=== PATIENT | male | born 1965 | race Caucasian/White ===

== ENCOUNTER 2016-02-12 13:50 | Inpatient (IN) | payer MEDICARE, MEDICAID ==
[~2016-02-12] VITALS: Ht 172.7 cm; Wt 74.8 kg
[~2016-02-12 13:50] MED LIST: ACET-868 PO; BISA10SU61 RC; CARB-93 PO; CHOL50004 PO; DOCU-25 PO; IBUP-1955 PO; LAMO200T2 PO; LEVE100S PO; MAGN400O6 PO; MULT-24 PO; NA P133E RC; PRAM0.5T3 PO; SIMV40TA5 PO
[2016-02-12 14:22] LABS: BASOPHILS # (AUTO) 0.1 /CMM (0.0-0.2); BASOPHILS % (AUTO) 0.6 % (0.0-2.0); DIFF TOTAL % 100 %; EOSINOPHILS # (AUTO) 0.1 /CMM (0.0-0.7); HEMATOCRIT 36 % (39-51); HEMOGLOBIN 12.4 g/dL (13.5-17.5); LYMPHOCYTES # (AUTO) 1.2 /CMM (0.8-4.8); LYMPHOCYTES % (AUTO) 14.9 % (20.0-44.0); MEAN CORPUSCULAR HEMOGLOBIN 32 PG (26.0-33.0); MEAN CORPUSCULAR HGB CONC 34 g/dl (31.0-36.0); MEAN CORPUSCULAR VOLUME 94 fL (80-96); MONOCYTES # (AUTO) 0.3 /CMM (0.1-1.30); MONOCYTES % (AUTO) 3.5 % (2.0-12.0); NEUTROPHILS # (AUTO) 6.4 /CMM (1.8-8.9); PLATELET COUNT (AUTO) 216 /CMM (150-450); RED BLOOD CELL COUNT(AUTO) 3.86 MIL/uL (4.5-6.0); WHITE BLOOD COUNT (AUTO) 7.9 K/uL (4.3-11.0)
[2016-02-12 14:29] LABS: ANION GAP 26 (5-14); CALCIUM, SERUM 8.4 mg/dL (8.5-10.1); CARBON DIOXIDE 16 mmol/L (21-32); CHLORIDE 100 mmol/L (98-107); CREATININE 1.4 mg/dL (0.6-1.3); GFR 53 mL/min (>60); GLUCOSE 220 mg/dL (74-106); POTASSIUM 3.4 mmol/L (3.5-5.1); SODIUM SERUM 138 mmol/L (136-145); UREA NITROGEN, BLOOD 14 mg/dL (7-18)
[2016-02-12 14:35] LABS: ALANINE AMINOTRANSFERASE 21 U/L (12-78); ALBUMIN 4.1 g/dL (3.4-5.0); ASPARTATE AMINOTRANSFERASE 27 U/L (15-37); BILIRUBIN,DIRECT 0.1 mg/dL (0.0-0.2); BILIRUBIN,TOTAL 0.4 mg/dL (0.2-1.0); INDIRECT BILIRUBIN 0.3 mg/dL (0.0-1.1); TOTAL PROTEIN, SERUM 7.9 g/dL (6.4-8.2)
[2016-02-12 14:41] LABS: INR 1.03 (0.87-1.13); PROTHROMBIN TIME 11.1 SECS (9.5-12.7)
[2016-02-12 14:54] LABS: KETONES,URINE NEGATIVE (NEGATIVE); LEUKOCYTE ESTERASE ,URINE NEGATIVE (NEGATIVE); PH,URINE 7.5 (5.0-8.0)
[2016-02-12 14:59] LABS: ADD UA MICROSCOPIC YES
[2016-02-12 15:02] LABS: ADD URINE CULTURE NO; WBC,URINE 0-2 /HPF (0-3)
[2016-02-12] MEDS ORDERED: LEVETIRACETAM (500MG) 1,000 MG in IV NS 0.9% 100 ML IV SCH (15:30)
[2016-02-12] MEDS ORDERED: IV SET PRIMARY PUMP SET 1 EA INFUS.SET MC ONE (15:55)
[2016-02-12] MEDS ORDERED: IV NS 0.9% 1,000 ML BAG IV ONE (17:30)
[2016-02-12] MEDS ORDERED: IV SET PRIMARY 1 EA INFUS.SET MC ONE (17:54)
[2016-02-12] MEDS ORDERED: IV NS 0.9% 1,000 ML ONE (17:54)
[2016-02-12 20:00] VITALS: BP 94/61
[2016-02-13] VITALS (7 sets, daily range): BP systolic 100–110; BP diastolic 58–88
[2016-02-13] MEDS ORDERED: BISACODYL SUPP (10 MG) 10 MG/SUPP.RECT SUPP.RECT RC PRN
[2016-02-13] MEDS ORDERED: NA PHOS,M-B/NA PHOS,DI-BA 1 EA ENEMA RC PRN
[2016-02-13] MEDS ORDERED: MAGNESIUM HYDROXIDE 30 ML UDC PO PRN
[2016-02-13] MEDS ORDERED: IV D5/0.45 NACL 1,000 ML IV PRN
[2016-02-13] MEDS ORDERED: ACETAMINOPHEN 325 MG TABLET PO PRN
[2016-02-13] MEDS ORDERED: IBUPROFEN 600 MG TABLET PO PRN
[2016-02-13] MEDS ORDERED: SIMVASTATIN 20 MG TABLET ONE (00:11)
[2016-02-13] MEDS ORDERED: IV SET PRIMARY PUMP SET 1 EA INFUS.SET MC ONE (01:10)
[2016-02-13] MEDS ORDERED: IV D5/0.45 NACL 1,000 ML IV ONE (01:10)
[2016-02-13] MEDS ORDERED: CARBIDOPA/LEVODOPA 25/100 MG 1 UDTAB ONE (01:44)
[2016-02-13] MEDS ORDERED: LEVETIRACETAM (250 MG) 250 MG TABLET PO ONE (01:44)
[2016-02-13] MEDS ORDERED: PRAMIPEXOLE DI-HCL 0.25 MG TABLET ONE (01:45)
[2016-02-13] MEDS ORDERED: LamoTRIgine 100 MG TABLET ONE (01:51)
[2016-02-13] MEDS: LEVETIRACETAM SOL (5 ML) 100 MG/ML UDC PO SCH ×5 (01:57→17:30)
[2016-02-13] MEDS: LamoTRIgine 100 MG TABLET PO SCH ×3 (01:58→21:59)
[2016-02-13] MEDS: PRAMIPEXOLE DI-HCL 0.25 MG TABLET PO SCH ×6 (01:58→21:59)
[2016-02-13] MEDS: CARBIDOPA/LEVODOPA 25/100 MG 1 UDTAB PO SCH ×5 (01:59→17:30)
[2016-02-13] MEDS: SIMVASTATIN 40 MG TABLET PO SCH ×2 (01:59→21:59)
[2016-02-13 07:01] LABS: BASOPHILS % (AUTO) 0.4 % (0.0-2.0); DIFF TOTAL % 100 %; EOSINOPHILS # (AUTO) 0.2 /CMM (0.0-0.7); HEMATOCRIT 33 % (39-51); HEMOGLOBIN 11.1 g/dL (13.5-17.5); LYMPHOCYTES # (AUTO) 1.6 /CMM (0.8-4.8); LYMPHOCYTES % (AUTO) 20.2 % (20.0-44.0); MEAN CORPUSCULAR HEMOGLOBIN 32 PG (26.0-33.0); MEAN CORPUSCULAR HGB CONC 34 g/dl (31.0-36.0); MEAN CORPUSCULAR VOLUME 95 fL (80-96); MONOCYTES # (AUTO) 0.5 /CMM (0.1-1.30); MONOCYTES % (AUTO) 6.6 % (2.0-12.0); NEUTROPHILS # (AUTO) 5.8 /CMM (1.8-8.9); NEUTROPHILS % (AUTO) 70.8 % (43.0-81.0); PLATELET COUNT (AUTO) 178 /CMM (150-450); RED BLOOD CELL COUNT(AUTO) 3.44 MIL/uL (4.5-6.0); WHITE BLOOD COUNT (AUTO) 8.1 K/uL (4.3-11.0)
[2016-02-13 07:11] LABS: ALBUMIN 3.4 g/dL (3.4-5.0); BILIRUBIN,DIRECT 0.1 mg/dL (0.0-0.2); BILIRUBIN,TOTAL 0.5 mg/dL (0.2-1.0); CREATININE 0.8 mg/dL (0.6-1.3); INDIRECT BILIRUBIN 0.4 mg/dL (0.0-1.1); POTASSIUM 3.7 mmol/L (3.5-5.1); TOTAL PROTEIN, SERUM 6.7 g/dL (6.4-8.2)
[2016-02-13 07:13] LABS: THYROID STIMULATING HORMONE 1.42 uIU/mL (0.358-3.74)
[2016-02-13] MEDS: MULTIVITAMINS,THERAPEUTIC 1 UDTAB TABLET PO SCH (08:48)
[2016-02-13] MEDS: CHOLECALCIFEROL 1,000 UNIT TABLET (VIT D3) PO SCH (08:48)
[2016-02-13] MEDS ORDERED: LORAZEPAM INJ 2 MG/ML VIAL IM PRN (15:30)
[2016-02-13] MEDS ORDERED: Z GUARD REMEDY 4 OZ OINT TP SCH (21:00)
[2016-02-13] MEDS: DOCUSATE SODIUM 100 MG CAPSULE PO SCH (21:58)
[2016-02-14] VITALS: BP 102/69
[2016-02-14 04:00] VITALS: BP 103/65
[2016-02-14 06:59] LABS: ALBUMIN 3.7 g/dL (3.4-5.0); BASOPHILS % (AUTO) 0.4 % (0.0-2.0); BILIRUBIN,TOTAL 0.8 mg/dL (0.2-1.0); CREATININE 0.7 mg/dL (0.6-1.3); DIFF TOTAL % 100 %; EOSINOPHILS # (AUTO) 0.2 /CMM (0.0-0.7); EOSINOPHILS % (AUTO) 3.3 % (0.0-6.0); HEMATOCRIT 34 % (39-51); HEMOGLOBIN 11.6 g/dL (13.5-17.5); LYMPHOCYTES # (AUTO) 1.6 /CMM (0.8-4.8); LYMPHOCYTES % (AUTO) 24.9 % (20.0-44.0); MEAN CORPUSCULAR HEMOGLOBIN 32 PG (26.0-33.0); MEAN CORPUSCULAR HGB CONC 34 g/dl (31.0-36.0); MEAN CORPUSCULAR VOLUME 94 fL (80-96); MONOCYTES # (AUTO) 0.4 /CMM (0.1-1.30); MONOCYTES % (AUTO) 6.8 % (2.0-12.0); NEUTROPHILS # (AUTO) 4.1 /CMM (1.8-8.9); NEUTROPHILS % (AUTO) 64.6 % (43.0-81.0); PLATELET COUNT (AUTO) 179 /CMM (150-450); POTASSIUM 3.7 mmol/L (3.5-5.1); RED BLOOD CELL COUNT(AUTO) 3.66 MIL/uL (4.5-6.0); TOTAL PROTEIN, SERUM 7.3 g/dL (6.4-8.2); WHITE BLOOD COUNT (AUTO) 6.4 K/uL (4.3-11.0)
[2016-02-14 08:00] VITALS: BP 105/71
[2016-02-14] MEDS: MULTIVITAMINS,THERAPEUTIC 1 UDTAB TABLET PO SCH (09:11)
[2016-02-14] MEDS: CARBIDOPA/LEVODOPA 25/100 MG 1 UDTAB PO SCH ×3 (09:11→17:33)
[2016-02-14] MEDS: LamoTRIgine 100 MG TABLET PO SCH ×2 (09:11→21:27)
[2016-02-14] MEDS: PRAMIPEXOLE DI-HCL 0.25 MG TABLET PO SCH ×3 (09:11→17:33)
[2016-02-14] MEDS: CHOLECALCIFEROL 1,000 UNIT TABLET (VIT D3) PO SCH (09:11)
[2016-02-14] MEDS: LEVETIRACETAM SOL (5 ML) 100 MG/ML UDC PO SCH ×3 (09:11→17:33)
[2016-02-14 16:00] VITALS: BP 94/56
[2016-02-14 20:00] VITALS: BP 97/56
[2016-02-14] MEDS: DOCUSATE SODIUM 100 MG CAPSULE PO SCH (21:27)
[2016-02-14] MEDS: SIMVASTATIN 40 MG TABLET PO SCH (21:27)
[2016-02-15] MEDS ORDERED: PRAMIPEXOLE DI-HCL 0.25 MG TABLET ONE (00:41)
[2016-02-15] MEDS: PRAMIPEXOLE DI-HCL 0.25 MG TABLET PO SCH ×5 (00:47→21:14)
[2016-02-15 08:00] VITALS: BP 105/63
[2016-02-15] MEDS: CARBIDOPA/LEVODOPA 25/100 MG 1 UDTAB PO SCH ×3 (09:02→17:48)
[2016-02-15] MEDS: LEVETIRACETAM SOL (5 ML) 100 MG/ML UDC PO SCH ×3 (09:02→17:48)
[2016-02-15] MEDS: LamoTRIgine 100 MG TABLET PO SCH ×2 (09:02→21:15)
[2016-02-15] MEDS: MULTIVITAMINS,THERAPEUTIC 1 UDTAB TABLET PO SCH (09:02)
[2016-02-15] MEDS: Z GUARD REMEDY 2 OZ OINT TP PRN (09:03)
[2016-02-15] MEDS: CHOLECALCIFEROL 1,000 UNIT TABLET (VIT D3) PO SCH (09:03)
[2016-02-15] MEDS: MEGESTROL ACETATE SUSP 400 MG/10 ML UDC PO SCH ×2 (09:03→17:48)
[2016-02-15 09:39] LABS: BASOPHILS % (AUTO) 0.3 % (0.0-2.0); DIFF TOTAL % 100 %; EOSINOPHILS # (AUTO) 0.3 /CMM (0.0-0.7); EOSINOPHILS % (AUTO) 2.3 % (0.0-6.0); HEMATOCRIT 35 % (39-51); HEMOGLOBIN 12.1 g/dL (13.5-17.5); LYMPHOCYTES # (AUTO) 1.6 /CMM (0.8-4.8); LYMPHOCYTES % (AUTO) 13.9 % (20.0-44.0); MEAN CORPUSCULAR HEMOGLOBIN 32 PG (26.0-33.0); MEAN CORPUSCULAR HGB CONC 34 g/dl (31.0-36.0); MEAN CORPUSCULAR VOLUME 93 fL (80-96); MONOCYTES # (AUTO) 0.6 /CMM (0.1-1.30); MONOCYTES % (AUTO) 5.2 % (2.0-12.0); NEUTROPHILS % (AUTO) 78.3 % (43.0-81.0); PLATELET COUNT (AUTO) 190 /CMM (150-450); WHITE BLOOD COUNT (AUTO) 11.5 K/uL (4.3-11.0)
[2016-02-15 09:55] LABS: ALBUMIN 3.6 g/dL (3.4-5.0); BILIRUBIN,TOTAL 0.8 mg/dL (0.2-1.0); CALCIUM, SERUM 8.2 mg/dL (8.5-10.1); CREATININE 0.7 mg/dL (0.6-1.3); POTASSIUM 3.6 mmol/L (3.5-5.1); TOTAL PROTEIN, SERUM 7.3 g/dL (6.4-8.2)
[2016-02-15 16:00] VITALS: BP 96/60
[2016-02-15 20:00] VITALS: BP_SYST 105; BP_SYST 109; BP_DIAS 58
[2016-02-15] MEDS: SIMVASTATIN 40 MG TABLET PO SCH (21:15)
[2016-02-15] MEDS: DOCUSATE SODIUM 100 MG CAPSULE PO SCH (21:15)
[2016-02-16 08:00] VITALS: BP 98/62
[2016-02-16 08:50] VITALS: BP 98/62
[2016-02-16] MEDS: CARBIDOPA/LEVODOPA 25/100 MG 1 UDTAB PO SCH ×4 (08:54→16:36)
[2016-02-16] MEDS: PRAMIPEXOLE DI-HCL 0.25 MG TABLET PO SCH ×5 (08:54→21:23)
[2016-02-16] MEDS: MULTIVITAMINS,THERAPEUTIC 1 UDTAB TABLET PO SCH (08:54)
[2016-02-16] MEDS: CHOLECALCIFEROL 1,000 UNIT TABLET (VIT D3) PO SCH (08:54)
[2016-02-16] MEDS: LamoTRIgine 100 MG TABLET PO SCH ×2 (08:54→21:23)
[2016-02-16] MEDS: MEGESTROL ACETATE SUSP 400 MG/10 ML UDC PO SCH ×3 (08:54→16:36)
[2016-02-16] MEDS: LEVETIRACETAM SOL (5 ML) 100 MG/ML UDC PO SCH ×4 (08:56→16:36)
[2016-02-16] MEDS: Z GUARD REMEDY 2 OZ OINT TP PRN (12:37)
[2016-02-16 16:17] VITALS: BP 101/56
[2016-02-16 20:00] VITALS: BP 100/61
[2016-02-16] MEDS: DOCUSATE SODIUM 100 MG CAPSULE PO SCH (21:23)
[2016-02-16] MEDS: SIMVASTATIN 40 MG TABLET PO SCH (21:24)
[2016-02-16 22:00] VITALS: BP 100/61
[2016-02-17 08:00] VITALS: BP_SYST 109; BP_SYST 129; BP_DIAS 60
[2016-02-17] MEDS: MEGESTROL ACETATE SUSP 400 MG/10 ML UDC PO SCH (08:20)
[2016-02-17] MEDS: LEVETIRACETAM SOL (5 ML) 100 MG/ML UDC PO SCH ×2 (08:20→12:47)
[2016-02-17] MEDS: LamoTRIgine 100 MG TABLET PO SCH (08:21)
[2016-02-17] MEDS: CARBIDOPA/LEVODOPA 25/100 MG 1 UDTAB PO SCH ×2 (08:21→12:48)
[2016-02-17] MEDS: CHOLECALCIFEROL 1,000 UNIT TABLET (VIT D3) PO SCH (10:27)
[2016-02-17] MEDS: MULTIVITAMINS,THERAPEUTIC 1 UDTAB TABLET PO SCH (10:28)
[2016-02-17] MEDS: PRAMIPEXOLE DI-HCL 0.25 MG TABLET PO SCH ×2 (10:28→12:48)
== END 2016-02-17 16:30 | DRG 101 ==
LOC: ER 13:51 → TRANSITION 20:25 → TELE 02-13 04:08 → MED 02-14 13:18
PROVIDERS: ADMIT Internal Medicine Rheumatology; ATTEND Internal Medicine Rheumatology
DX: G40.409 Other generalized epilepsy and epileptic syndromes, not intractable, without status epilepticus (principal); G82.20 Paraplegia, unspecified; K21.9 Gastro-esophageal reflux disease without esophagitis; G20 Parkinson's disease; F02.80 Dementia in other diseases classified elsewhere, unspecified severity, without behavioral disturbance, psychotic disturbance, mood disturbance, and anxiety; F20.9 Schizophrenia, unspecified; H52.4 Presbyopia; D64.9 Anemia, unspecified; F41.9 Anxiety disorder, unspecified; F32.9 Major depressive disorder, single episode, unspecified; Z98.2 Presence of cerebrospinal fluid drainage device; Z86.73 Personal history of transient ischemic attack (TIA), and cerebral infarction without residual deficits
CPT/HCPCS: 36415; 70450-TC; 71010-TC; 80048-TC; 80053-TC; 80076-TC; 81000-TC; 82962-TC; 84436-TC; 84443-TC; 85025-TC; 85730-TC; 87081-TC; 97001-TC; 97110-TC; A4606; G6040-TC; J1953; J2060; J3490; J7030; Z7610

== ENCOUNTER 2017-12-23 14:43 | Inpatient (IN) | payer MEDICARE, MEDICAID ==
[~2017-12-23] VITALS: Ht 172.7 cm; Wt 75.7 kg
[~2017-12-23 14:43] MED LIST changes: +ACET-868 GT; -ACET-868 PO; +CARB-93 GT; -CARB-93 PO; +CHOL50004 GT; -CHOL50004 PO; +DOCU-141 GT; -DOCU-25 PO; +IBUP-1955 GT; -IBUP-1955 PO; +LAMO200T2 GT; -LAMO200T2 PO; +LEVE100S GT; -LEVE100S PO; +MAGN400O6 GT; -MAGN400O6 PO; +MULT-24 GT; -MULT-24 PO; +PRAM0.5T3 GT; -PRAM0.5T3 PO
[2017-12-23] MEDS ORDERED: LORAZEPAM INJ 2 MG/ML VIAL ONE (14:46)
--- NOTE | 2017-12-23 14:50 | NUR ---
patient devorahra 84 from [facility] and per staff has been shaking for over 2 hours which they believed to be parkinsons exacerbation. patient noted to be actively seizing and per md ativan given ivp and shaking ceased.
[2017-12-23] MEDS ORDERED: ACETAMINOPHEN 650 MG/SUPP.RECT RC ONE ×2 (14:58→15:00)
[2017-12-23] MEDS ORDERED: PIPERACILLIN /TAZOBACTAM 3.375 G in IV D5W 50 ML IV ONE (15:00)
[2017-12-23] MEDS ORDERED: LORAZEPAM INJ 2 MG/ML VIAL IVP ONE (15:00)
[2017-12-23] MEDS ORDERED: VANCOMYCIN 1 GM in IV D5W 250 ML IV ONE (15:00)
[2017-12-23] MEDS ORDERED: LEVETIRACETAM (500MG) 500 MG in IV NS 0.9% 100 ML IV ONE (15:00)
[2017-12-23] MEDS ORDERED: IV NS 0.9% 1,000 ML BAG IV ONE (15:00)
--- NOTE | 2017-12-23 15:02 | NUR ---
ACCOMPANIED PATIENT TO CT. BLOOD DRAWN. UNABLE TO INSERT LAST CATH, WILL TRY AGAIN
--- NOTE | 2017-12-23 15:15 | NUR ---
returned from ct. inserted another piv. blood cultures drawn. ivf started. patient has no signs of active seizing at this time. called pharmacy for shady
--- NOTE | 2017-12-23 15:41 | NUR ---
left fa zosyn and ns.
[2017-12-23 15:55] LABS: BASOPHILS % (AUTO) 0.4 % (0.0-2.0); EOSINOPHILS % (AUTO) 0.4 % (0.0-6.0); HEMATOCRIT 33 % (39-51); HEMOGLOBIN 11.3 g/dL (13.5-17.5); LYMPHOCYTES # (AUTO) 1.2 /CMM (0.8-4.8); LYMPHOCYTES % (AUTO) 15.3 % (20.0-44.0); MEAN CORPUSCULAR HGB CONC 34 g/dl (31.0-36.0); MEAN CORPUSCULAR VOLUME 97 fL (80-96); MONOCYTES # (AUTO) 0.7 /CMM (0.1-1.30); MONOCYTES % (AUTO) 9.5 % (2.0-12.0); NEUTROPHILS # (AUTO) 5.6 /CMM (1.8-8.9); NEUTROPHILS % (AUTO) 74.4 % (43.0-81.0); PLATELET COUNT (AUTO) 274 /CMM (150-450); RED BLOOD CELL COUNT(AUTO) 3.41 MIL/uL (4.5-6.0); WHITE BLOOD COUNT (AUTO) 7.5 K/uL (4.3-11.0)
[2017-12-23 16:08] LABS: VALPROIC ACID 23 ug/mL (50-100)
[2017-12-23 16:12] LABS: ALANINE AMINOTRANSFERASE 27 U/L (12-78); ALKALINE PHOSPHATASE 51 U/L (46-116); ASPARTATE AMINOTRANSFERASE 29 U/L (15-37); BILIRUBIN,DIRECT 0.1 mg/dL (0.0-0.2); BILIRUBIN,TOTAL 0.4 mg/dL (0.2-1.0); CALCIUM, SERUM 8.2 mg/dL (8.5-10.1); CARBON DIOXIDE 29 mmol/L (21-32); CHLORIDE 100 mmol/L (98-107); GLUCOSE 87 mg/dL (74-106); POTASSIUM 3.1 mmol/L (3.5-5.1); SODIUM SERUM 135 mmol/L (136-145); TOTAL PROTEIN, SERUM 7.2 g/dL (6.4-8.2); UREA NITROGEN, BLOOD 19 mg/dL (7-18)
[2017-12-23] MEDS ORDERED: VALPROATE 1,000 MG in IV NS 0.9% 100 ML IV STA (16:23)
--- NOTE | 2017-12-23 16:27 | NUR ---
patient rectal temp now 99.9 from temp max 102.8. changed to nc 5lpm saturating 100%.
[2017-12-23 16:28] LABS: APPEARANCE,URINE CLEAR (CLEAR); BILIRUBIN,URINE 1+ (NEGATIVE); BLOOD, URINE NEGATIVE Ery/uL (NEGATIVE); COLOR,URINE YELLOW (YELLOW); KETONES,URINE 1+ (NEGATIVE); LEUKOCYTE ESTERASE ,URINE NEGATIVE (NEGATIVE); NITRITE, URINE NEGATIVE (NEGATIVE); PROTEIN,URINE NEGATIVE (NEGATIVE); UGLUCOSE NEGATIVE (NEGATIVE)
--- NOTE | 2017-12-23 16:44 | NUR ---
DR FONTAINE WAS PAGED.
[2017-12-23 16:55] LABS: BACTERIA,URINE Few /HPF (None Seen); SQUAMOUS EPITHELIAL CELL,UR Few /HPF (None Seen)
[2017-12-23 16:56] LABS: RBC,URINE 0-2 /HPF (0-2); WBC,URINE 0-2 /HPF (0-3)
[2017-12-23 16:57] LABS: MUCUS,URINE Moderate /LPF (None Seen)
--- NOTE | 2017-12-23 17:01 | NUR ---
patient for b[facility]ard 112-1 wendy alexandra
--- NOTE | 2017-12-23 17:20 | NUR ---
REPORT GIVEN TO DOREEN IYER RN
--- NOTE | 2017-12-23 17:45 | NUR ---
PATIENT TRANSFERRED TO [facility] GIVEN TO DIANE LOGAN
--- NOTE | 2017-12-23 17:50 | NUR ---
RN NOTES RECEIVED IN ROOM 112-1, FROM ER IN ROOM , NONVERBAL, DRAWZY RESPONDS TO PAINFUL STIMULI, ON 3L O2 N/C O2 SAT 100%, NO SOB NOTED, ON TELE SB , HR IN HIGH 50'S , LAST DRINING TO GRAVITY , RFA IV G 18 AND LFA IV G 20 INTACT, SR UP x3, CALL LIGHT WITHIN EASY REACH, BED LOCKED AND IN LOWEST POSITION , WILL ENDORSE TO SECOND RIGGER NURSE FOR CONTINUITY OF CARE .
[2017-12-23 18:00] VITALS: BP 95/70
--- NOTE | 2017-12-23 19:45 | NUR ---
TD RN NOTES: RECEIVED PT ON BED, LETHARGIC BUT WITHDRAWS TO PAIN. NO ACUTE DISTRESS NOTED. NO FACIAL GRIMACING OR ANY SIGNS OF PAIN NOTED. ON 3LPM NASAL CANNULA, NO SOB NOTED. SINUS GABRIEL ON TELE MONITOR HR 53 BPM. IV ON RIGHT FOREARM #18 AND LEFT FOREARM #20 INTACT AND PATENT, FLUSHING WELL. KEPT CLEAN, DRY AND COMFORTABLE. SAFETY AND FALL PRECAUTIONS OBSERVED AND MAINTAINED. WILL CONTINUE TO MONITOR PT.
[2017-12-23 20:00] VITALS: BP 109/57
[2017-12-23] MEDS ORDERED: CEFTRIAXONE 1 G VIAL IM SCH (20:00)
[2017-12-23] MEDS ORDERED: FEE PK DOSING 1 MIN EA MC ONE (20:05)
[2017-12-23] MEDS: IV D5/0.45 NACL 1,000 ML IV SCH (20:09)
[2017-12-23] MEDS: CEFTRIAXONE 1 G in IV D5W 50 ML IV SCH (20:41)
[2017-12-23] MEDS ORDERED: BISACODYL SUPP (10 MG) 10 MG/SUPP.RECT SUPP.RECT RC PRN (21:00)
[2017-12-23] MEDS: LamoTRIgine 100 MG TABLET PO SCH (21:00)
[2017-12-23] MEDS ORDERED: NA PHOS,M-B/NA PHOS,DI-BA 1 EA ENEMA RC PRN (21:00)
[2017-12-23] MEDS: DOCUSATE SODIUM 100 MG CAPSULE PO SCH (22:00)
[2017-12-23] MEDS: SIMVASTATIN 40 MG TABLET PO SCH (22:00)
--- NOTE | 2017-12-23 22:09 | NUR ---
TD RN NOTES: 2099 AND 0 DUE PO MEDS NOT GIVEN BECAUSE PT IS LETHARGIC. DR. FONTAINE MADE AWARE.
[2017-12-23] MEDS: VANCOMYCIN 0.75 GM in IV D5W 250 ML IV SCH (22:41)
[2017-12-24] VITALS: BP 92/42
[2017-12-24 04:00] VITALS: BP 100/48
[2017-12-24] MEDS: IV D5/0.45 NACL 1,000 ML IV SCH (06:12)
[2017-12-24 06:24] LABS: BASOPHILS % (AUTO) 0.5 % (0.0-2.0); EOSINOPHILS % (AUTO) 1.7 % (0.0-6.0); HEMATOCRIT 28 % (39-51); HEMOGLOBIN 9.6 g/dL (13.5-17.5); LYMPHOCYTES # (AUTO) 1.3 /CMM (0.8-4.8); LYMPHOCYTES % (AUTO) 18.8 % (20.0-44.0); MEAN CORPUSCULAR HGB CONC 34 g/dl (31.0-36.0); MEAN CORPUSCULAR VOLUME 98 fL (80-96); MONOCYTES # (AUTO) 0.5 /CMM (0.1-1.30); MONOCYTES % (AUTO) 7.9 % (2.0-12.0); NEUTROPHILS # (AUTO) 4.9 /CMM (1.8-8.9); NEUTROPHILS % (AUTO) 71.1 % (43.0-81.0); PLATELET COUNT (AUTO) 195 /CMM (150-450); RED BLOOD CELL COUNT(AUTO) 2.85 MIL/uL (4.5-6.0); WHITE BLOOD COUNT (AUTO) 6.9 K/uL (4.3-11.0)
[2017-12-24] MEDS: VANCOMYCIN 0.75 GM in IV D5W 250 ML IV SCH ×3 (06:29→23:23)
[2017-12-24 06:38] LABS: ALBUMIN 2.4 g/dL (3.4-5.0); BILIRUBIN,TOTAL 0.2 mg/dL (0.2-1.0); CALCIUM, SERUM 7.3 mg/dL (8.5-10.1); CREATININE 0.8 mg/dL (0.6-1.3); POTASSIUM 2.9 mmol/L (3.5-5.1)
--- NOTE | 2017-12-24 06:42 | NUR ---
TD RN NOTES: NO CHANGES NOTED THROUGHOUT THE SHIFT. NO APPARENT DISTRESS NOTED. NO FACIAL GRIMACING, MOANING OR ANY SIGNS OF PAIN NOTED. ON 3LPM NASAL CANNULA, SATURATING WELL. IV ON LEFT FOREARM #20 AND RIGHT FOREARM #18 INTACT AND PATENT WITH IVF D5 1/2NS RUNNING AT 100 ML/HR, INFUSING WELL. NO SIGNS OF INFILTRATION NOTED. ON TELE MONITOR SINUS GABRIEL HR 45 BPM. LAST CATH INTACT AND PATENT WITH CLEAR YELLOW URINE DRAINING. KEPT CLEAN, DRY AND COMFORTABLE. SAFETY AND FALL PRECAUTIONS OBSERVED AND MAINTAINED. WILL ENDORSE TO DAY SHIFT RN FOR CONTINUITY OF CARE.
[2017-12-24 06:58] LABS: T4 (THYROXINE) 3.7 ug/dL (4.7-13.3); THYROID STIMULATING HORMONE 1.821 uIU/mL (0.358-3.74)
--- NOTE | 2017-12-24 07:45 | NUR ---
TATIANA RN NOTE: RECEIVED PATIENT IN BED, NOTED LETHARGIC AT THIS TIME. NONVERBAL AT THIS TIME. RESPIRATION EVEN AND UNLABORED. ON SEIZURE PRECAUTION. NO FACIAL GRIMACING NOTED. HOB ELEVATED TO 45 DEGREE. KEPT NPO AT THIS TIME. WILL CLARIFY WITH DR. FONTAINE RE: SWALLOW EVALUATION TODAY. BED ON LOWEST POSITION. BED ALARMED AND LOCKED AT ALL TIMES. CALL LIGHT WITHIN REACH. ON CLOSE MONITORING WITH STAFF FOR SAFETY PRECAUTION. NEEDS ANTICIPATED.
[2017-12-24 08:00] VITALS: BP 121/73
[2017-12-24] MEDS: CARBIDOPA/LEVODOPA 25/100 MG 1 UDTAB PO SCH ×3 (09:00→17:00)
[2017-12-24] MEDS ORDERED: LEVETIRACETAM SOL (5 ML) 100 MG/ML UDC PO SCH (09:00)
[2017-12-24] MEDS: LamoTRIgine 100 MG TABLET PO SCH ×2 (09:00→21:00)
[2017-12-24] MEDS: CHOLECALCIFEROL 1,000 UNIT TABLET (VIT D3) PO SCH (09:00)
[2017-12-24] MEDS: PRAMIPEXOLE DI-HCL 0.25 MG TABLET PO SCH ×4 (09:00→21:00)
[2017-12-24] MEDS: MULTIVITAMINS,THERAGRAN 1 UDTAB TABLET PO SCH (09:00)
[2017-12-24] MEDS: DIVALPROEX SODIUM 500 MG TABLET.DR PO SCH ×3 (09:00→17:00)
[2017-12-24] MEDS: LEVETIRACETAM (500MG) 500 MG in IV NS 0.9% 100 ML IV SCH ×3 (09:40→17:25)
--- NOTE | 2017-12-24 09:53 | NUR ---
TATIANA RN NOTE: DR. FONTAINE ORDERED ATIVAN 2MG IVP Q2HR PRN FOR SEIZURE. ORDER, NOTED AND CARRIED OUT.
[2017-12-24 12:00] VITALS: BP 99/59
[2017-12-24] MEDS: LORAZEPAM INJ 2 MG/ML VIAL IV PRN (12:30)
--- NOTE | 2017-12-24 13:22 | NUR ---
TATIANA RN NOTE: PATIENT WAS UNABLE TO TAKE HIS PO MEDICATIONS (DEPAKOTE, CARBIDOPA/LEVIDOPA AND PRAMIPEXOLE) AT THIS TIME. NO SEIZURE EPISODE NOTED AT THIS TIME.
[2017-12-24] MEDS ORDERED: POTASSIUM CHLORIDE 20 MEQ POWDER PACKET PO SCH (14:30)
--- NOTE | 2017-12-24 14:50 | NUR ---
TATIANA RN NOTE: CLARIFIED WITH DR. FONTAINE RE: THE POTASSIUM REPLACEMENT. PER MD GIVE POTASSIUM CHLORIDE 20MEQ IVPB. ORDER, NOTED AND CARRIED OUT.
[2017-12-24] MEDS: POTASSIUM CL. PREMIX PERIPHER. 50 ML IV SCH ×2 (15:13→16:18)
[2017-12-24 16:00] VITALS: BP 80/47
--- NOTE | 2017-12-24 17:22 | NUR ---
TATIANA RN NOTE: RECHECKED PATIENT'S BLOOD PRESSURE AND IT WAS 117/83, HR= 82.
--- NOTE | 2017-12-24 19:35 | NUR ---
RN NOTES RECEIVED PT LETHARGIC, RESPONSIVE TO TACTILE STIMULI. WARMTH TO TOUCH, NO ACUTE RESPIRATORY DISTRESS ON O2 3LPM VIA NC SATURATION 97%. AFEBRILE. TEMP 97.9 DEG. NO EPISODE OF SEIZURE . SB HR 58 ON TELE MONITOR. WITH STRONG PERIPHERAL PULSES. BIALTERAL BREATH SOUND CLEAR. IV SITE ON RFA G 18 AND LFA G 20 INTACT AND PATENT RUNNING WITH D5 1/2 NS @ 100 ML/HR. PATIENT HAS LAST CATH DRAINED VIA GRAVITY WITH YELLOW COLOR CLEAR URINE. REPOSITIONED FOR COMFORTABLE. KEPT PT CLEAN AND DRY. WILL CONTINUE TO MONITOR.
[2017-12-24 20:00] VITALS: BP 120/62
--- NOTE | 2017-12-24 20:08 | NUR ---
TATIANA RN NOTE: REPORT GIVEN TO PM SHIFT NURSE FOR CONTINUITY OF CARE.
[2017-12-24] MEDS: IV D5/0.45 NACL 1,000 ML IV PRN (21:04)
[2017-12-24] MEDS: CEFTRIAXONE 1 G in IV D5W 50 ML IV SCH (21:06)
[2017-12-24] MEDS: DOCUSATE SODIUM 100 MG CAPSULE PO SCH (21:07)
[2017-12-24] MEDS: SIMVASTATIN 40 MG TABLET PO SCH (21:07)
[2017-12-25] VITALS: BP 101/47
[2017-12-25 04:00] VITALS: BP 113/42
[2017-12-25 06:20] LABS: BASOPHILS % (AUTO) 0.5 % (0.0-2.0); HEMATOCRIT 31 % (39-51); HEMOGLOBIN 10.8 g/dL (13.5-17.5); LYMPHOCYTES # (AUTO) 1.6 /CMM (0.8-4.8); LYMPHOCYTES % (AUTO) 17.7 % (20.0-44.0); MEAN CORPUSCULAR HGB CONC 35 g/dl (31.0-36.0); MEAN CORPUSCULAR VOLUME 96 fL (80-96); MONOCYTES # (AUTO) 0.7 /CMM (0.1-1.30); MONOCYTES % (AUTO) 8.1 % (2.0-12.0); NEUTROPHILS # (AUTO) 6.2 /CMM (1.8-8.9); NEUTROPHILS % (AUTO) 70.7 % (43.0-81.0); PLATELET COUNT (AUTO) 244 /CMM (150-450); RED BLOOD CELL COUNT(AUTO) 3.23 MIL/uL (4.5-6.0); WHITE BLOOD COUNT (AUTO) 8.8 K/uL (4.3-11.0)
[2017-12-25 06:24] LABS: CALCIUM, SERUM 7.8 mg/dL (8.5-10.1); CREATININE 0.8 mg/dL (0.6-1.3)
[2017-12-25] MEDS: VANCOMYCIN 0.75 GM in IV D5W 250 ML IV SCH ×3 (06:37→23:12)
--- NOTE | 2017-12-25 07:22 | NUR ---
RN NOTES PATIENT ASLEEP WELL ON BED. BREATHING EVEN AND UNLABORED. ZERO FLACC TMAX 99.1. ALL IV AND IV ATB MEDICINE GIVEN ORDERED. PT IS MORE ALERT THAN YESTERDAY, FOLLOWING COMMAND BUT NON-VERBAL. PARKINSON PRESENT.ALL IV SITE KEPT INTACT AND PATENT. KEPT CLEAN AND DRY. ENDORSED CONTINUITY OF CARE TO AM NURSE.
--- NOTE | 2017-12-25 07:57 | NUR ---
INITIAL TATIANA RN NOTE RCVD PT SLEEPING, EASILY AROUSED TO TOUCH, ABLE TO OPEN EYES, ON RA TOLERATING WELL. SR ON TELE, LAST TO GRAVITY DRAINING CLEAR, YELLOW URINE. IV SITES C/D/I/PATENT. NO S/O INFILTRATION/PHLEBITIS OBSERVED UPON FLUSHING, IVF INFUSING. WILL CONTINUE TO MONITOR PT FOR SAFETY AND COMFORT. BED IN LOW AND LOCKED POSITION. CALL LIGHT WITHIN REACH.
[2017-12-25 08:00] VITALS: BP 98/52
[2017-12-25] MEDS: DIVALPROEX SODIUM 500 MG TABLET.DR PO SCH ×3 (08:45→16:23)
[2017-12-25] MEDS: PRAMIPEXOLE DI-HCL 0.25 MG TABLET PO SCH ×4 (08:45→21:58)
[2017-12-25] MEDS: CARBIDOPA/LEVODOPA 25/100 MG 1 UDTAB PO SCH ×3 (08:45→16:23)
[2017-12-25] MEDS: LEVETIRACETAM (500MG) 500 MG in IV NS 0.9% 100 ML IV SCH (08:45)
[2017-12-25] MEDS: LamoTRIgine 100 MG TABLET PO SCH ×2 (08:45→21:58)
[2017-12-25] MEDS: CHOLECALCIFEROL 1,000 UNIT TABLET (VIT D3) PO SCH (08:45)
[2017-12-25] MEDS: MULTIVITAMINS,THERAGRAN 1 UDTAB TABLET PO SCH (08:45)
--- NOTE | 2017-12-25 09:37 | NUR ---
TATIANA RN NOTE PT REQUIRES FREQUENT COACHING TO SWALLOW FOOD/THICKENED LIQUID. WILL CONTINUE TO MONITOR.
[2017-12-25] MEDS ORDERED: POTASSIUM CHLORIDE 20 MEQ POWDER PACKET PO SCH (10:00)
[2017-12-25] MEDS: IV D5/0.45 NACL 1,000 ML IV PRN ×2 (10:36→22:04)
[2017-12-25 12:00] VITALS: BP 124/48
[2017-12-25] MEDS: LEVETIRACETAM SOL (5 ML) 100 MG/ML UDC PO SCH ×2 (13:22→16:23)
--- NOTE | 2017-12-25 13:26 | NUR ---
TATIANA RN NOTE [facility] MATTRESS ORDERED AND PLACED IN BED, LOW SHANI SCORE, NO WOUNDS PRESENT AT THIS TIME.
[2017-12-25 16:00] VITALS: BP_SYST 90; BP_DIAS 45; BP_DIAS 48
--- NOTE | 2017-12-25 19:15 | NUR ---
TATIANA RN NOTE PT REMAINS STABLE, ON RA TOLERATING WELL. SR ON MONITOR. IV SITES C/D/I/PATENT. NO S/O INFILTRATION/PHLEBITIS OBSERVED. IVF INFUSING. LAST TO GRAVITY DRAINING CLEAR, YELLOW URINE. PT'S CARE WILL BE ENDORSED TO STONE OPERATOR RN FOR CONTINUITY OF CARE. BED IN LOW AND LOCKED POSITION. CALL LIGHT WITHIN REACH.
[2017-12-25 20:31] VITALS: BP 114/39
--- NOTE | 2017-12-25 20:33 | NUR ---
RN TATIANA INITIAL NOTE RCVD PT AWAKE, ABLE TO OPEN EYES, ON RA TOLERATING WELL. SR ON TELE, LAST TO GRAVITY DRAINING CLEAR, YELLOW URINE. IV SITES C/D/I/PATENT. NO S/O INFILTRATION/PHLEBITIS OBSERVED UPON FLUSHING, IVF INFUSING. WILL CONTINUE TO MONITOR PT FOR SAFETY AND COMFORT. BED IN LOW AND LOCKED POSITION. CALL LIGHT WITHIN REACH.
[2017-12-25] MEDS: CEFTRIAXONE 1 G in IV D5W 50 ML IV SCH (21:58)
[2017-12-25] MEDS: DOCUSATE SODIUM 100 MG CAPSULE PO SCH (21:59)
[2017-12-25] MEDS: SIMVASTATIN 40 MG TABLET PO SCH (22:00)
[2017-12-26] VITALS: BP 101/38
--- NOTE | 2017-12-26 | NUR ---
MD FONTAINE VISIT WITH ORDER FOR CBC,MAG AND ESR.
[2017-12-26 04:00] VITALS: BP 105/79
[2017-12-26] MEDS: LORAZEPAM INJ 2 MG/ML VIAL IV PRN ×2 (06:38→12:45)
[2017-12-26] MEDS: VANCOMYCIN 0.75 GM in IV D5W 250 ML IV SCH ×3 (06:40→23:15)
--- NOTE | 2017-12-26 07:03 | NUR ---
RN TATIANA CLOSING NOTE PT 0640 NOTED WITH SEIZURE ACTIVITY, PRN ORDER ATIVAN 2MG GIVEN IV PUSH, EFFECTIVE, PT ABLE TO STOP, WILL ENDORSE TO AM RN TO [place].
--- NOTE | 2017-12-26 07:20 | NUR ---
TATIANA RN OPENING NOTES RECEIVED PT ON BED.NON VERBAL AND FOLLOW COMMANDS.ON TELE HR IS [address]WITH 3L O2 VIA NC.NO SOB AND ACUTE DISTRESS NOTED.LAST CATHETER IS IN PLACE.IV LINE IS ON RIGHT FA G18,LEFT FA G20,SITE IS CLEAN,DRY AND INTACT.SAFETY IS MAINTAINED AT TIMES.BED IS IN LOW POSITION AND LOCKED.SIDE RAILS IS ON.CALL LIGHT IS WITHIN REACH.WILL CLOSELY MONITOR THE PT FOR SEIZURE.
[2017-12-26 08:00] VITALS: BP 86/47
[2017-12-26 08:03] LABS: BASOPHILS # (AUTO) 0.1 /CMM (0.0-0.2); BASOPHILS % (AUTO) 1.2 % (0.0-2.0); EOSINOPHILS % (AUTO) 6.7 % (0.0-6.0); HEMATOCRIT 28 % (39-51); HEMOGLOBIN 9.7 g/dL (13.5-17.5); LYMPHOCYTES # (AUTO) 1.3 /CMM (0.8-4.8); MEAN CORPUSCULAR HGB CONC 35 g/dl (31.0-36.0); MEAN CORPUSCULAR VOLUME 96 fL (80-96); MONOCYTES # (AUTO) 0.5 /CMM (0.1-1.30); MONOCYTES % (AUTO) 7.6 % (2.0-12.0); NEUTROPHILS # (AUTO) 4.4 /CMM (1.8-8.9); NEUTROPHILS % (AUTO) 65.5 % (43.0-81.0); PLATELET COUNT (AUTO) 222 /CMM (150-450); RED BLOOD CELL COUNT(AUTO) 2.89 MIL/uL (4.5-6.0); WHITE BLOOD COUNT (AUTO) 6.7 K/uL (4.3-11.0)
[2017-12-26 08:09] LABS: CALCIUM, SERUM 7.6 mg/dL (8.5-10.1); CREATININE 0.8 mg/dL (0.6-1.3); MAGNESIUM 1.8 mg/dL (1.8-2.4); POTASSIUM 3.3 mmol/L (3.5-5.1)
[2017-12-26] MEDS: PRAMIPEXOLE DI-HCL 0.25 MG TABLET PO SCH ×4 (08:20→21:47)
[2017-12-26] MEDS: MULTIVITAMINS,THERAGRAN 1 UDTAB TABLET PO SCH (08:21)
[2017-12-26] MEDS: LamoTRIgine 100 MG TABLET PO SCH ×2 (08:21→21:47)
[2017-12-26] MEDS: DIVALPROEX SODIUM 500 MG TABLET.DR PO SCH ×3 (08:21→16:09)
[2017-12-26] MEDS: CHOLECALCIFEROL 1,000 UNIT TABLET (VIT D3) PO SCH (08:22)
[2017-12-26] MEDS: CARBIDOPA/LEVODOPA 25/100 MG 1 UDTAB PO SCH ×3 (08:22→16:09)
[2017-12-26] MEDS: LEVETIRACETAM SOL (5 ML) 100 MG/ML UDC PO SCH ×3 (08:23→16:09)
[2017-12-26] MEDS ORDERED: POTASSIUM CHLORIDE 20 MEQ POWDER PACKET NG SCH (10:00)
[2017-12-26 12:00] VITALS: BP_SYST 88; BP_SYST 93; BP_DIAS 43; BP_DIAS 51
[2017-12-26] MEDS: IV D5/0.45 NACL 1,000 ML IV PRN (12:31)
--- NOTE | 2017-12-26 12:45 | NUR ---
TATIANA RN NOTES PT HAD AN EPISODE OF SEIZURE STARTS FROM 1232PM TO 1243PM.PLACED PT ON SUPINE FLAT POSITION.IV ATIVAN 1MG IS GIVEN.PT IS CALM AND NO ANY OTHER COMPLICATIONS NOTED.CHARGE NURSE MADE AWARE.REPORTED TO DR.ASSA FONTAINE AND LEFT THE MESSAGE,WAITING FOR THE CALL BACK.
[2017-12-26 16:00] VITALS: BP_SYST 88; BP_SYST 93; BP_DIAS 43; BP_DIAS 51
[2017-12-26 17:30] LABS: APPEARANCE,URINE CLEAR (CLEAR); BILIRUBIN,URINE NEGATIVE (NEGATIVE); BLOOD, URINE NEGATIVE Ery/uL (NEGATIVE); COLOR,URINE OTHER (YELLOW); KETONES,URINE NEGATIVE (NEGATIVE); LEUKOCYTE ESTERASE ,URINE NEGATIVE (NEGATIVE); NITRITE, URINE NEGATIVE (NEGATIVE); PH,URINE 5.5 (5.0-8.0); PROTEIN,URINE NEGATIVE (NEGATIVE); UGLUCOSE NEGATIVE (NEGATIVE); UROBILINOGEN,URINE 0.2 EU/dL (0.2)
--- NOTE | 2017-12-26 18:49 | NUR ---
TATIANA RN CLOSING NOTES PT IS ON BED.MONITOR FOR SEIZURE.ENDORSED TO RESIDENT INTERN RN FOR CONTINUITY OF CARE.
[2017-12-26 20:00] VITALS: BP 107/54
[2017-12-26] MEDS: SIMVASTATIN 40 MG TABLET PO SCH (21:47)
[2017-12-26] MEDS: CEFTRIAXONE 1 G in IV D5W 50 ML IV SCH (21:47)
[2017-12-26] MEDS: DOCUSATE SODIUM 100 MG CAPSULE PO SCH (21:48)
[2017-12-27] VITALS (7 sets, daily range): BP systolic 90–119; BP diastolic 42–60
[2017-12-27] MEDS: IV D5/0.45 NACL 1,000 ML IV PRN ×2 (03:35→19:47)
--- NOTE | 2017-12-27 06:26 | NUR ---
RN TATIANA CLOSING NOTE ENDORSED PT AWAKE, ABLE TO OPEN EYES, ON RA TOLERATING WELL. SR ON TELE, LAST TO GRAVITY DRAINING CLEAR, YELLOW URINE. IV SITES C/D/I/PATENT. NO S/O INFILTRATION/PHLEBITIS OBSERVED UPON FLUSHING, IVF INFUSING. WILL CONTINUE TO MONITOR PT FOR SAFETY AND COMFORT. BED IN LOW AND LOCKED POSITION. CALL LIGHT WITHIN REACH.
[2017-12-27] MEDS: VANCOMYCIN 0.75 GM in IV D5W 250 ML IV SCH ×3 (06:30→23:42)
[2017-12-27 07:11] LABS: BASOPHILS % (AUTO) 0.6 % (0.0-2.0); CALCIUM, SERUM 7.8 mg/dL (8.5-10.1); CREATININE 0.7 mg/dL (0.6-1.3); EOSINOPHILS % (AUTO) 6.8 % (0.0-6.0); HEMATOCRIT 30 % (39-51); HEMOGLOBIN 10.5 g/dL (13.5-17.5); LYMPHOCYTES # (AUTO) 1.2 /CMM (0.8-4.8); MEAN CORPUSCULAR HGB CONC 35 g/dl (31.0-36.0); MEAN CORPUSCULAR VOLUME 96 fL (80-96); MONOCYTES # (AUTO) 0.6 /CMM (0.1-1.30); MONOCYTES % (AUTO) 8.8 % (2.0-12.0); NEUTROPHILS # (AUTO) 4.7 /CMM (1.8-8.9); NEUTROPHILS % (AUTO) 66.8 % (43.0-81.0); PLATELET COUNT (AUTO) 245 /CMM (150-450); POTASSIUM 3.5 mmol/L (3.5-5.1); RED BLOOD CELL COUNT(AUTO) 3.12 MIL/uL (4.5-6.0); WHITE BLOOD COUNT (AUTO) 7.1 K/uL (4.3-11.0)
--- NOTE | 2017-12-27 07:25 | NUR ---
TATIANA RN OPENING NOTE RECEIVED REPORT ROM PM NURSE.PATIENT IS AWAKE , ABLE TO OPEN EYES, ON O2 2L VIA NASAL CANULA. SR ON TELE MONITOR HR 61, LAST TO GRAVITY DRAINING CLEAR, YELLOW URINE. IV SITES INTACT AND PATENT. ON IVF D5 1/2 NS AT 100ML/HR.ON SEIZURE PRECAUTIONS. BED IN LOW AND LOCKED POSITION. CALL LIGHT WITHIN REACH.SRX3.WILL CONTINUE TO MONITOR.
[2017-12-27] MEDS: LORAZEPAM INJ 2 MG/ML VIAL IV PRN (08:26)
[2017-12-27] MEDS ORDERED: LORAZEPAM INJ 2 MG/ML VIAL IV ONE (08:40)
[2017-12-27] MEDS: CHOLECALCIFEROL 1,000 UNIT TABLET (VIT D3) PO SCH (09:00)
[2017-12-27] MEDS: MULTIVITAMINS,THERAGRAN 1 UDTAB TABLET PO SCH (09:00)
[2017-12-27] MEDS ORDERED: LEVETIRACETAM (500MG) 500 MG in IV NS 0.9% 100 ML IV SCH (09:00)
[2017-12-27] MEDS: CARBIDOPA/LEVODOPA 25/100 MG 1 UDTAB PO SCH ×3 (09:00→17:49)
[2017-12-27] MEDS: PRAMIPEXOLE DI-HCL 0.25 MG TABLET PO SCH ×4 (09:00→22:12)
[2017-12-27] MEDS: LamoTRIgine 100 MG TABLET PO SCH ×2 (09:00→22:12)
--- NOTE | 2017-12-27 09:00 | NUR ---
TATIANA RN NOTE NOTED WITH PATIENT HAVING SEIZURE,STARTED AT 0825.PRN ATIVAN GIVEN .STILL CONTINUING SEIZURE.OUTREACH WORKER CALLED.ONE MORE DOSE OF ATIVAN PRN GIVEN.STOP SEIZURE AFTER 20MIN,WITH STABLE VIAL SIGNS.NO SOB NO DISTRESS NOTED.ORAL SUCTIONING GIVEN. MADE AWARE.GOT NEW ORDERS.WILL CONTINUE TO MONITOR.
--- NOTE | 2017-12-27 10:30 | NUR ---
TATIANA RN NOTE MED VIA PO NOT ADMINISTERED,CRUSHED AND TOOK TO PATIENT ROOM.PATIENT HAD SEIZURE.UNABLE TO ADMINISTER MEDS TO PO.NOT FOLLOWING COMMANDS.NPO PER DOCTOR.DISCARDED MEDS.
[2017-12-27] MEDS: VALPROATE 500 MG in IV D5W 100 ML IV SCH ×2 (10:39→18:35)
--- NOTE | 2017-12-27 12:00 | NUR ---
TATIANA RN NOTE SEEN BY MARCEL QUINTANA FOR .UPDATED PATIENT CONDITION.GOT NEW ORDER FOR LABS AND MEDS.CARRIED OUT ORDERS AND RELAYED RESULT TO MARCEL QUINTANA,SIGNED CONSENT FOR MRI BRAIN BY MARCEL QUINTANA PATIENT UNABLE TO SIGN,NO FAMILY ON THE LIST.WILL CONTINUE TO MONITOR.
--- NOTE | 2017-12-27 15:00 | NUR ---
TATIANA RN NOTES SEEN BY UPDATED ABOUT PATIENT CONDITION,AND NOTIFIED ABOUT PUPIL REACTION NOT PRESENT,HE SAID WAIT FOR MRI AND WILL F/U FROM THERE.ALSO UPDATED LABS AND GOT NEW ORDER FOR LABS TOMORROW.
--- NOTE | 2017-12-27 15:00 | NUR ---
TATIANA RN NOTE NGT INSERTED AND X RAY RESULT BACK,RELAYED TO ASKED TO F/U WITH RADIOLOGIST.OK TO GIVE MEDS VIA NGT.SPOKE TO RADIOLOGIST OUTSIDE.
--- NOTE | 2017-12-27 15:30 | NUR ---
TATIANA RN NOTES CROWN PERFORATOR OPERATOR CAME TO TAKE PATIENT FOR MRI,BUT UNABLE TO DO IT BECAUSE OF HIS HEAD CONTACTED AND HE SAID CAN'T DO MRI, MADE AWARE.WILL F/U.
--- NOTE | 2017-12-27 16:59 | NUR ---
TATIANA RN NOTE GOT CALL FROM LILIAN ROD FOR ,TOLD SHE CANCELLED TRILEPTAL .MADE AWARE THAT MRI NOT DONE.ALSO MADE AWARE THAT PATIENT PUPIL NOT REACTING,ASKED TO CONTINUE TO MONITOR.
[2017-12-27] MEDS ORDERED: OXCARBAZEPINE 150 MG TABLET PO SCH (17:00)
[2017-12-27] MEDS: LEVETIRACETAM (500MG) 750 MG in IV NS 0.9% 100 ML IV SCH (17:47)
--- NOTE | 2017-12-27 19:26 | NUR ---
TATIANA RN CLOSING NOTE PATIENT IS LETHARGIC , OPEN EYES ONLY FOR PAINFUL STIMULI, ON O2 2L VIA NASAL CANULA. SATURATING 100%.SR ,SB 43-58,ON TELE MONITOR, MADE AWARE ,GOT ORDER FOR CARDIOLOGY CONSULT FOR TOMORROW.DEPUTY HARBORMASTER LILIAN MADE AWARE ,DO EKG IF SUSTAINING BRADYCARDIA.LAST TO GRAVITY DRAINING CLEAR, YELLOW URINE. IV SITES INTACT AND PATENT. ON IVF D5 1/2 NS AT 100ML/HR.ON SEIZURE PRECAUTIONS. BED IN LOW AND LOCKED POSITION. CALL LIGHT WITHIN REACH.SRX3.BEDSIDE REPORT GIVEN TO PM NURSE FOR [facility].
--- NOTE | 2017-12-27 20:44 | NUR ---
RN NOTE REPORT GIVEN TO ELVIN
[2017-12-27] MEDS: CEFTRIAXONE 1 G in IV D5W 50 ML IV SCH (22:02)
[2017-12-27] MEDS: MAGNESIUM HYDROXIDE 30 ML UDC PO PRN (22:12)
[2017-12-27] MEDS: SIMVASTATIN 40 MG TABLET PO SCH (22:12)
[2017-12-27] MEDS: DOCUSATE SODIUM 100 MG CAPSULE PO SCH (22:13)
--- NOTE | 2017-12-27 23:15 | NUR ---
TATIANA/RN NOTES: RECEIVED REPORT FROM DOREEN IBARRA. PT. IN BED W/ HOB ELEVATED AT ALL TIMES. ON SEIZURE AND ASPIRATION PRECAUTION. W/ LEFT SIDE NARES NGT IN PLACE. NGT INPLACE AT 50 CM. FREDRICK ABDOMEN XRAY IS TIP IN THE GASTRIC CARDIA. NGT INSERTED IN FURTHER AT 60 CM AND ORDERS STAT XRAY. WAITING FOR RESULTS. HAS LFA G 20 D51/2NS @ 100 CC/HR. ALERT TO NAME ONLY. EYE OPEN BUT DOES NOT TRACK. ON TELE W/ SR. INCONTINENT CARE RENDERED. CALL LIGHT W/ REACH. WILL CONTINUE TO MONITOR.
[2017-12-28] VITALS: BP 105/68
--- NOTE | 2017-12-28 00:30 | NUR ---
TATIANA/RN NOTES: CONFIRMED W/ DR. JEFF DOBBS REGARDING PLACEMENT OF NGT/CHEST XRAY AND PER DR. AGUILAR OK TO USE NGT. CHARGE NURSE MADE AWARE.
[2017-12-28] MEDS: LEVETIRACETAM (500MG) 750 MG in IV NS 0.9% 100 ML IV SCH ×3 (00:58→16:08)
[2017-12-28] MEDS: VALPROATE 500 MG in IV D5W 100 ML IV SCH ×3 (01:46→17:19)
[2017-12-28 04:41] VITALS: BP 93/51
[2017-12-28] MEDS: VANCOMYCIN 0.75 GM in IV D5W 250 ML IV SCH (07:00)
--- NOTE | 2017-12-28 07:29 | NUR ---
TATIANA/RN NOTES: REPORT GIVEN TO NEXT SHIFT NURSE TO [place].
[2017-12-28 07:51] LABS: BASOPHILS % (AUTO) 0.5 % (0.0-2.0); EOSINOPHILS % (AUTO) 6.4 % (0.0-6.0); HEMATOCRIT 28 % (39-51); HEMOGLOBIN 9.6 g/dL (13.5-17.5); LYMPHOCYTES % (AUTO) 13.8 % (20.0-44.0); MEAN CORPUSCULAR HGB CONC 34 g/dl (31.0-36.0); MEAN CORPUSCULAR VOLUME 97 fL (80-96); MONOCYTES # (AUTO) 0.5 /CMM (0.1-1.30); MONOCYTES % (AUTO) 7.5 % (2.0-12.0); NEUTROPHILS # (AUTO) 5.2 /CMM (1.8-8.9); NEUTROPHILS % (AUTO) 71.8 % (43.0-81.0); PLATELET COUNT (AUTO) 257 /CMM (150-450); RED BLOOD CELL COUNT(AUTO) 2.91 MIL/uL (4.5-6.0); WHITE BLOOD COUNT (AUTO) 7.2 K/uL (4.3-11.0)
--- NOTE | 2017-12-28 07:52 | NUR ---
TATIANA RN NOTE RECEIVED PATIENT IN BED . AWAKE RESPONSE WHEN CALL HIS NAME , OPEN HIS EYES , ON TELE MONITOR HR SB HE 54 WITH LAST CATH TO GRAVITY WITH YELLOW COLOR URINE , WITH NG TUBE IN PLACE , PLACEMENT CHECKED BY AUSCULTATION OF AIR , IV HL CLIVE 22 INTACT ON IVF ORDERED, BED IN LOWEST AND LOCKED POSITION, CALL LIGHT WITHIN REACH, LT ARM IS SWOLLEN WILL KEEP ELEVATED ON PILLOW TOLERATED, WILL CONT TO MONITOR
[2017-12-28 08:00] VITALS: BP 95/51
[2017-12-28 08:00] LABS: CALCIUM, SERUM 7.5 mg/dL (8.5-10.1); CREATININE 0.7 mg/dL (0.6-1.3); POTASSIUM 3.4 mmol/L (3.5-5.1)
[2017-12-28] MEDS: CHOLECALCIFEROL 1,000 UNIT TABLET (VIT D3) PO SCH (08:17)
[2017-12-28] MEDS: LamoTRIgine 100 MG TABLET PO SCH ×2 (08:18→21:11)
[2017-12-28] MEDS: CARBIDOPA/LEVODOPA 25/100 MG 1 UDTAB PO SCH ×3 (08:18→16:02)
[2017-12-28] MEDS: PRAMIPEXOLE DI-HCL 0.25 MG TABLET PO SCH ×4 (08:19→21:11)
[2017-12-28] MEDS: MULTIVITAMINS,THERAGRAN 1 UDTAB TABLET PO SCH (08:19)
--- NOTE | 2017-12-28 09:02 | NUR ---
TATIANA RN NOTE CALLED TO PHARMACY, NOTIFIED THAT VANCO LEVEL 21 SPOKE ,WITH JEFF OK TO HOLD VANCO AT THIS TIME
[2017-12-28] MEDS: IV D5/0.45 NACL 1,000 ML IV PRN (11:12)
[2017-12-28] MEDS: POTASSIUM CL. PREMIX PERIPHER. 50 ML IV SCH ×2 (11:19→12:36)
[2017-12-28 12:00] VITALS: BP 106/62
--- NOTE | 2017-12-28 12:00 | NUR ---
TATIANA RN NOTE TURN REPOSITION ALL NEEDS ATTENDED ,KEEP HOB ELEVATED . WILL B CONT TO MONITOR CLOSELY
--- NOTE | 2017-12-28 15:17 | NUR ---
TATIANA RN NOTE NOTED RT ARM SWOLLEN, CALLED TO DR MINAL PENALOZA TO DO US DOPPLER LT ARM,KEEP ELEVATED ON PILLOW TOLERATED
[2017-12-28 16:00] VITALS: BP 95/51
--- NOTE | 2017-12-28 16:23 | NUR ---
TATIANA RN NOTE DOPPLER LT ARM DOING AT THIS TIME ,WILL F\U
--- NOTE | 2017-12-28 17:53 | NUR ---
TATIANA RN NOTE ON TELE MONITOR AB 49-50 BP 99/[address] MIN[address] RODRIGUEZ OK TO HAVE SPORTS BOOK WRITER CONSULT WITH DR ARCE , EKG DONE PER DR FONTAINE ,PATIENT ASYMPTOMATIC AT THIS TIME
--- NOTE | 2017-12-28 18:07 | NUR ---
TATIANA RN NOTE SPOKE WITH DR ARCE ABOUT BRADYCARDIA ,WILL SEE PATIENT TOMORROW, NO NEW ORDER AT THIS TIME , WILL F\U
--- NOTE | 2017-12-28 18:45 | NUR ---
TATIANA RN NOTE CALLED TO DR MINAL RODRIGUEZ NOTIFIED THAT NA 128 TODAY, IVF CHANGED TO NS AT 100 ML PER HOUR
[2017-12-28] MEDS: IV NS 0.9% 1,000 ML IV PRN ×2 (18:52→19:04)
[2017-12-28 20:00] VITALS: BP_SYST 98; BP_DIAS 48; BP_DIAS 78
[2017-12-28] MEDS: SIMVASTATIN 40 MG TABLET PO SCH (21:11)
[2017-12-28] MEDS: DOCUSATE SODIUM 100 MG CAPSULE PO SCH (21:11)
[2017-12-29] VITALS (7 sets, daily range): BP systolic 85–119; BP diastolic 38–61
[2017-12-29] MEDS: LEVETIRACETAM (500MG) 750 MG in IV NS 0.9% 100 ML IV SCH ×3 (01:00→17:35)
[2017-12-29] MEDS: VALPROATE 500 MG in IV D5W 100 ML IV SCH ×3 (02:00→18:04)
[2017-12-29] MEDS: IV NS 0.9% 1,000 ML IV PRN ×2 (07:13→20:51)
[2017-12-29 07:51] LABS: BASOPHILS % (AUTO) 0.4 % (0.0-2.0); EOSINOPHILS % (AUTO) 7.5 % (0.0-6.0); HEMATOCRIT 28 % (39-51); HEMOGLOBIN 9.7 g/dL (13.5-17.5); MEAN CORPUSCULAR HGB CONC 35 g/dl (31.0-36.0); MEAN CORPUSCULAR VOLUME 97 fL (80-96); MONOCYTES # (AUTO) 0.6 /CMM (0.1-1.30); MONOCYTES % (AUTO) 8.5 % (2.0-12.0); NEUTROPHILS # (AUTO) 4.8 /CMM (1.8-8.9); NEUTROPHILS % (AUTO) 68.6 % (43.0-81.0); PLATELET COUNT (AUTO) 201 /CMM (150-450); RED BLOOD CELL COUNT(AUTO) 2.88 MIL/uL (4.5-6.0)
[2017-12-29 07:53] LABS: CALCIUM, SERUM 7.6 mg/dL (8.5-10.1); CREATININE 0.7 mg/dL (0.6-1.3); POTASSIUM 3.6 mmol/L (3.5-5.1)
[2017-12-29 08:19] LABS: AMYLASE 34 U/L (25-115); LIPASE 131 U/L (73-393)
[2017-12-29] MEDS: CARBIDOPA/LEVODOPA 25/100 MG 1 UDTAB PO SCH ×3 (08:24→16:29)
[2017-12-29] MEDS: MULTIVITAMINS,THERAGRAN 1 UDTAB TABLET PO SCH (08:25)
[2017-12-29] MEDS: CHOLECALCIFEROL 1,000 UNIT TABLET (VIT D3) PO SCH (08:25)
[2017-12-29] MEDS: LamoTRIgine 100 MG TABLET PO SCH ×2 (08:25→21:30)
[2017-12-29] MEDS: PRAMIPEXOLE DI-HCL 0.25 MG TABLET PO SCH ×4 (08:27→21:30)
--- NOTE | 2017-12-29 10:00 | NUR ---
RN NOTES DR FONTAINE NOTIFED REGARDING LAB AND KUB RESULTS .
--- NOTE | 2017-12-29 12:00 | NUR ---
RN NOTES DO TO PT HEAD AND NECK POSITION, UNABLE TO GET MRI DONE , DR FONTAINE NOTIFED .
[2017-12-29] MEDS ORDERED: IV NS 0.9% 1,000 ML BAG IV PRN (12:30)
--- NOTE | 2017-12-29 18:29 | NUR ---
RN NOTES NO SEIZURE ACTIVATES NOTED ON THIS SHIFT, NS AT 100CC/HR RUNNING VIA R FA IV G 22 , SR UPx3, CALL LIGHT WITHIN EASY REACH, BED LOCKED AND IN LOWEST POSITION, WILL ENDOSE TO BEEF PLUCK TRIMMER NURSE FOR CONTINUITY OF CARE
[2017-12-29] MEDS: DOCUSATE SODIUM 100 MG CAPSULE PO SCH (21:30)
[2017-12-30] MEDS: LEVETIRACETAM (500MG) 750 MG in IV NS 0.9% 100 ML IV SCH ×3 (01:02→18:04)
[2017-12-30] MEDS: VALPROATE 500 MG in IV D5W 100 ML IV SCH ×3 (02:45→18:51)
[2017-12-30 04:00] VITALS: BP 99/54
[2017-12-30 06:26] LABS: CALCIUM, SERUM 8.1 mg/dL (8.5-10.1); CREATININE 0.7 mg/dL (0.6-1.3); POTASSIUM 3.6 mmol/L (3.5-5.1)
--- NOTE | 2017-12-30 07:00 | NUR ---
RN NOTES RECEIVED PT ON BED, ALERT / NONVERBAL, ON O2 O2 N/C , RESPIRATION EVEN AND UNLABORED, NO SOB NOTED , LEFT NARE NGT INTACT, NS AT 100 CC/ HR RUNNING VIA R HAND IV , SITE CLEAN , DRY AND INTACT, NPO AT THIS TIME , SR UP x3, CALL LIGHT WITHIN EASY REACH, BED LOCKED AND IN LOWEST POSITION, CONTINUE TO MONITOR .
[2017-12-30 08:00] VITALS: BP 114/54
[2017-12-30] MEDS: LamoTRIgine 100 MG TABLET PO SCH ×2 (08:23→21:34)
[2017-12-30] MEDS: MULTIVITAMINS,THERAGRAN 1 UDTAB TABLET PO SCH (08:24)
[2017-12-30] MEDS: CHOLECALCIFEROL 1,000 UNIT TABLET (VIT D3) PO SCH (08:24)
[2017-12-30] MEDS: CARBIDOPA/LEVODOPA 25/100 MG 1 UDTAB PO SCH ×3 (08:24→16:44)
[2017-12-30] MEDS: PRAMIPEXOLE DI-HCL 0.25 MG TABLET PO SCH ×4 (08:24→21:34)
[2017-12-30] MEDS: IV NS 0.9% 1,000 ML IV PRN (08:32)
[2017-12-30 12:00] VITALS: BP 99/55
--- NOTE | 2017-12-30 12:00 | NUR ---
RN NOTES PT STABLE , NO DISTRESS NOTED, CONTINUE TO MONITOR
[2017-12-30 16:00] VITALS: BP_SYST 101; BP_SYST 134; BP_DIAS 66; BP_DIAS 82
[2017-12-30 16:16] LABS: LAMOTRIGINE 8.2 ug/mL (2.0-20.0)
--- NOTE | 2017-12-30 18:25 | NUR ---
RN NOTES PT REMANS THE SAME, NO SIGNIFICANT CHANGES NOTED ON THIS SHIFT , WILL ENDOSE TO INVENTORY CONTROL COORDINATOR NURSE FOR CONTINUITY OF CARE .
[2017-12-30 20:00] VITALS: BP 111/60
--- NOTE | 2017-12-30 20:00 | NUR ---
RN INITIAL NOTES RECEIVED PT ON BED, ALERT / NONVERBAL, ON O2 O2 N/C , RESPIRATION EVEN AND UNLABORED, NO SOB NOTED , ON TELE SB HR IN 50'S , LEFT NARE NGT INTACT, PT IS NPO AT THIS TIME, NS AT 100 CC/ HR RUNNING VIA R HAND IV , SITE CLEAN , DRY AND INTACT, SR UP x3, CALL LIGHT WITHIN EASY REACH, BED LOCKED AND IN LOWEST POSITION, CONTINUE TO MONITOR .
[2017-12-30] MEDS: DOCUSATE SODIUM 100 MG CAPSULE PO SCH (21:34)
[2017-12-31] VITALS: BP 97/55
[2017-12-31] MEDS: IV NS 0.9% 1,000 ML IV PRN ×2 (00:04→14:23)
[2017-12-31] MEDS ORDERED: NUTRITIONAL SUPPLEMENT/FIBER 250 ML CAN NG SCH (01:00)
[2017-12-31] MEDS: LEVETIRACETAM (500MG) 750 MG in IV NS 0.9% 100 ML IV SCH ×3 (01:15→18:08)
[2017-12-31] MEDS: VALPROATE 500 MG in IV D5W 100 ML IV SCH ×2 (02:14→10:00)
[2017-12-31 04:00] VITALS: BP 120/74
--- NOTE | 2017-12-31 06:55 | NUR ---
RN CLOSING NOTES NO CHANGE IN PTS CONDITION OVER NIGHT. PT PLACED ON A DIET VIA NGT, PER DR. FONTAINE. PT NGT TUBE IN PLACE IN L NARES. LAST DRAINING YELLOW URINE TO GRAVITY. IV IN R FA WITH IV FLUIDS INFUSING ORDERED. ALL SAFETY PRECAUTIONS IN PLACE. WILL ENDORSE TO AM RN.
[2017-12-31 07:09] LABS: BASOPHILS % (AUTO) 0.7 % (0.0-2.0); EOSINOPHILS % (AUTO) 7.6 % (0.0-6.0); HEMATOCRIT 30 % (39-51); HEMOGLOBIN 10.3 g/dL (13.5-17.5); LYMPHOCYTES # (AUTO) 1.3 /CMM (0.8-4.8); LYMPHOCYTES % (AUTO) 22.4 % (20.0-44.0); MEAN CORPUSCULAR HGB CONC 34 g/dl (31.0-36.0); MEAN CORPUSCULAR VOLUME 98 fL (80-96); MONOCYTES # (AUTO) 0.6 /CMM (0.1-1.30); MONOCYTES % (AUTO) 9.8 % (2.0-12.0); NEUTROPHILS # (AUTO) 3.5 /CMM (1.8-8.9); NEUTROPHILS % (AUTO) 59.5 % (43.0-81.0); PLATELET COUNT (AUTO) 229 /CMM (150-450); RED BLOOD CELL COUNT(AUTO) 3.05 MIL/uL (4.5-6.0); WHITE BLOOD COUNT (AUTO) 5.9 K/uL (4.3-11.0)
[2017-12-31 07:23] LABS: CALCIUM, SERUM 7.7 mg/dL (8.5-10.1); CREATININE 0.7 mg/dL (0.6-1.3); POTASSIUM 3.7 mmol/L (3.5-5.1)
[2017-12-31 08:00] VITALS: BP 92/45
[2017-12-31] MEDS: CHOLECALCIFEROL 1,000 UNIT TABLET (VIT D3) PO SCH (10:16)
[2017-12-31] MEDS: LamoTRIgine 100 MG TABLET PO SCH ×2 (10:16→20:07)
[2017-12-31] MEDS: PRAMIPEXOLE DI-HCL 0.25 MG TABLET PO SCH ×4 (10:17→20:07)
[2017-12-31] MEDS: CARBIDOPA/LEVODOPA 25/100 MG 1 UDTAB PO SCH ×3 (10:17→16:31)
[2017-12-31] MEDS: MULTIVITAMINS,THERAGRAN 1 UDTAB TABLET PO SCH (10:17)
--- NOTE | 2017-12-31 10:55 | NUR ---
BEAUTY CULTURIST NOTE NOTIFIED MARCEL LEÓN OF PATIENT'S VALPROIC ACID LEVEL OF 106. RECEIVED AN ORDER TO HOLD IV DEPACON TODAY.
[2017-12-31] MEDS: JEVITY 1.2 CAL 1,000 ML BOTTLE GT PRN (15:46)
[2017-12-31 16:00] VITALS: BP 112/67
--- NOTE | 2017-12-31 19:45 | NUR ---
MS RN NOTE: RECEIVED PT ON BED AWAKE WITH NO APPARENT DISTRESS NOTED. NO FACIAL GRIMACING OR ANY SIGNS OF PAIN NOTED. ON 2LPM NASAL CANNULA, NO SOB NOTED. NGT ON LEFT NARE INTACT AND PATENT. IV ON LEFT FOREARM #20 AND RIGHT FOREARM #22 INTACT AND PATENT WITH IVF NS RUNNING AT 100ML/HR, INFUSING WELL. LAST CATH INTACT, DRAINING WELL. KEPT CLEAN, DRY AND COMFORTABLE. SAFETY, FALL AND SEIZURE PRECAUTIONS OBSERVED AND MAINTAINED. WILL CONTINUE TO MONITOR PT.
[2017-12-31 20:00] VITALS: BP 115/68
[2017-12-31] MEDS: DOCUSATE SODIUM 100 MG CAPSULE PO SCH (21:39)
[2018-01-01] VITALS (7 sets, daily range): BP systolic 88–126; BP diastolic 48–73
[2018-01-01] MEDS: LEVETIRACETAM (500MG) 750 MG in IV NS 0.9% 100 ML IV SCH ×3 (01:16→17:53)
[2018-01-01] MEDS: IV NS 0.9% 1,000 ML IV PRN ×2 (01:21→17:28)
--- NOTE | 2018-01-01 06:42 | NUR ---
MS RN NOTE: NO CHANGES NOTED THROUGHOUT THE SHIFT. NO ACUTE DISTRESS NOTED. ON 2LPM NASAL CANNULA, NO SOB NOTED. NGT ON LEFT NARE STILL INTACT AND PATENT, GTF JEVITY 1.2 @ 40ML/HR, ABLE TO TOLERATE WELL. NO RESIDUAL NOTED. KEPT CLEAN, DRY AND COMFORTABLE. SAFETY AND SEIZURE PRECAUTIONS OBSERVED AND MAINTAINED. WILL ENDORSE TO DAY SHIFT RN FOR CONTINUITY OF CARE.
[2018-01-01 06:52] LABS: BASOPHILS % (AUTO) 0.6 % (0.0-2.0); EOSINOPHILS % (AUTO) 6.5 % (0.0-6.0); HEMATOCRIT 32 % (39-51); HEMOGLOBIN 11.2 g/dL (13.5-17.5); LYMPHOCYTES # (AUTO) 1.1 /CMM (0.8-4.8); MEAN CORPUSCULAR HGB CONC 35 g/dl (31.0-36.0); MEAN CORPUSCULAR VOLUME 96 fL (80-96); MONOCYTES # (AUTO) 0.5 /CMM (0.1-1.30); MONOCYTES % (AUTO) 8.5 % (2.0-12.0); NEUTROPHILS # (AUTO) 4.2 /CMM (1.8-8.9); NEUTROPHILS % (AUTO) 66.4 % (43.0-81.0); PLATELET COUNT (AUTO) 270 /CMM (150-450); RED BLOOD CELL COUNT(AUTO) 3.37 MIL/uL (4.5-6.0); WHITE BLOOD COUNT (AUTO) 6.3 K/uL (4.3-11.0)
--- NOTE | 2018-01-01 07:10 | NUR ---
MS RN NOTES PATIENT IN BED EYES OPEN, RESPONSE TO VERBAL AND TACTILE STIMULI. NO ACUTE DISTRESS NOTED. NO SOB NOTED. BREATHING UNLABORED. SAFETY MEASURES IN PLACE. CALL LIGHT WITHIN REACH. WILL CONTINUE TO MONITOR ACCORDINGLY.
[2018-01-01 07:13] LABS: CALCIUM, SERUM 8.1 mg/dL (8.5-10.1); CREATININE 0.6 mg/dL (0.6-1.3); POTASSIUM 3.6 mmol/L (3.5-5.1)
[2018-01-01] MEDS: CARBIDOPA/LEVODOPA 25/100 MG 1 UDTAB PO SCH ×3 (08:57→17:47)
[2018-01-01] MEDS: LamoTRIgine 100 MG TABLET PO SCH ×2 (08:57→20:29)
[2018-01-01] MEDS: CHOLECALCIFEROL 1,000 UNIT TABLET (VIT D3) PO SCH (08:57)
[2018-01-01] MEDS: MULTIVITAMINS,THERAGRAN 1 UDTAB TABLET PO SCH (08:58)
[2018-01-01] MEDS: OXCARBAZEPINE 150 MG TABLET NG SCH ×2 (08:58→17:47)
[2018-01-01] MEDS: PRAMIPEXOLE DI-HCL 0.25 MG TABLET PO SCH ×4 (08:58→20:30)
[2018-01-01] MEDS: VALPROATE 250 MG in IV NS 0.9% 100 ML IV SCH ×3 (09:43→18:30)
[2018-01-01] MEDS ORDERED: KEY,NONCONTROL,TO KEEP IN PYXI 1 EA MC ONE (12:16)
--- NOTE | 2018-01-01 19:00 | NUR ---
MS RN NOTES PATIENT IN BED EYES OPEN, RESPONSE TO VERBAL AND TACTILE STIMULI. NO ACUTE DISTRESS NOTED. NO SOB NOTED. BREATHING UNLABORED. DUE MEDICATIONS GIVEN, NO ASE NOTED. NEEDS ATTENDED AND ANTICIPATED. SAFETY MEASURES IN PLACE. CALL LIGHT WITHIN REACH. ENDORSED TO NIGHT NURSE FOR CONTINUITY OF CARE.
--- NOTE | 2018-01-01 19:45 | NUR ---
MS RN NOTE: RECEIVED PT ON BED WITH NO ACUTE DISTRESS NOTED. NO FACIAL GRIMACING OR ANY SIGNS OF PAIN NOTED. ON 2LPM NASAL CANNULA, NO SOB NOTED. PT SATURATING WELL. NGT ON LEFT NARE INTACT AND PATENT WITH JEVITY 1.2 RUNNING ON 65ML/HR. NO RESIDUAL NOTED AT THIS TIME. IV ON LEFT FOREARM #20 AND RIGHT FOREARM #22 INTACT AND PATENT WITH IVF NS RUNNING AT 100ML/HR, INFUSING WELL. LAST CATH INTACT WITH CLEAR YELLOW URINE DRAINING. KEPT CLEAN, DRY AND COMFORTABLE. SAFETY, FALL AND SEIZURE PRECAUTIONS OBSERVED AND MAINTAINED. WILL CONTINUE TO MONITOR PT.
[2018-01-01] MEDS: DOCUSATE SODIUM 100 MG CAPSULE PO SCH (21:12)
[2018-01-01] MEDS: JEVITY 1.2 CAL 1,000 ML BOTTLE GT PRN (23:54)
[2018-01-02] MEDS: LEVETIRACETAM (500MG) 750 MG in IV NS 0.9% 100 ML IV SCH ×3 (01:31→16:30)
[2018-01-02 04:00] VITALS: BP 124/55
[2018-01-02] MEDS: IV NS 0.9% 1,000 ML IV PRN ×2 (05:51→17:00)
--- NOTE | 2018-01-02 06:31 | NUR ---
MS RN NOTE: NO CHANGES NOTED THROUGHOUT THE SHIFT. NO APPARENT DISTRESS NOTED. BREATHING EVEN AND UNLABORED WITH NORMAL RESPIRATION. NGT INTACT AND IN PLACED, NO RESIDUAL NOTED AT THIS TIME. LAST CATH INTACT AND PATENT, DRAINED 1050CC OF CLEAR YELLOW URINE OUTPUT. KEPT CLEAN, DRY AND COMFORTABLE. SAFETY AND FALL PRECAUTIONS OBSERVED AND MAINTAINED. WILL ENDORSE TO DAY SHIFT RN FOR CONTINUITY OF CARE.
[2018-01-02 06:44] LABS: BASOPHILS % (AUTO) 0.4 % (0.0-2.0); HEMATOCRIT 29 % (39-51); HEMOGLOBIN 10.2 g/dL (13.5-17.5); LYMPHOCYTES % (AUTO) 13.3 % (20.0-44.0); MEAN CORPUSCULAR HGB CONC 35 g/dl (31.0-36.0); MEAN CORPUSCULAR VOLUME 96 fL (80-96); MONOCYTES # (AUTO) 0.5 /CMM (0.1-1.30); MONOCYTES % (AUTO) 6.7 % (2.0-12.0); NEUTROPHILS # (AUTO) 5.5 /CMM (1.8-8.9); NEUTROPHILS % (AUTO) 75.6 % (43.0-81.0); PLATELET COUNT (AUTO) 246 /CMM (150-450); RED BLOOD CELL COUNT(AUTO) 3.07 MIL/uL (4.5-6.0); WHITE BLOOD COUNT (AUTO) 7.3 K/uL (4.3-11.0)
[2018-01-02 07:02] LABS: CALCIUM, SERUM 7.3 mg/dL (8.5-10.1); CREATININE 0.6 mg/dL (0.6-1.3); POTASSIUM 3.6 mmol/L (3.5-5.1)
--- NOTE | 2018-01-02 07:30 | NUR ---
MS/RN - Assessment Received patient in bed awake, alert to self, stable on 2lpm via NC, no apparent distress, no s/s of pain. NGT in place with Jevity at 65 ml/hr tolerating it well. Sin catheter patent, draining clear yellow urine. Skin is intact. All pressure ulcer prevention measures noted to be in place. No seizure activity noted last night per endorsement. Fall, aspiration and seizure precautions maintained. All needs attended and intervene as needed. Will continue with current plan of care.
[2018-01-02 08:00] VITALS: BP 92/62
[2018-01-02] MEDS: CHOLECALCIFEROL 1,000 UNIT TABLET (VIT D3) PO SCH (08:28)
[2018-01-02] MEDS: MULTIVITAMINS,THERAGRAN 1 UDTAB TABLET PO SCH (08:28)
[2018-01-02] MEDS: OXCARBAZEPINE 150 MG TABLET NG SCH ×2 (08:28→16:27)
[2018-01-02] MEDS: LamoTRIgine 100 MG TABLET PO SCH ×2 (08:29→21:54)
[2018-01-02] MEDS: CARBIDOPA/LEVODOPA 25/100 MG 1 UDTAB PO SCH ×3 (08:29→16:27)
[2018-01-02] MEDS: PRAMIPEXOLE DI-HCL 0.25 MG TABLET PO SCH ×4 (08:29→21:56)
[2018-01-02] MEDS: VALPROATE 250 MG in IV NS 0.9% 100 ML IV SCH ×3 (09:03→17:10)
[2018-01-02 16:00] VITALS: BP 97/62
[2018-01-02] MEDS: JEVITY 1.2 CAL 1,000 ML BOTTLE GT PRN (16:40)
--- NOTE | 2018-01-02 17:37 | NUR ---
MS/RN - Closing Notes No significant change in condition seen, remain afebrile, no seizure activity noted this shift. Patient lethargic unable to participate with swallow eval today. Will continue with current medical management.
--- NOTE | 2018-01-02 19:45 | NUR ---
TATIANA RN NOTES Received bedside report from am nurse.patient in bed awake, alert to self, stable on 2 lpm via NC, no apparent distress, no s/s of pain. NGT in place with Jevity at 65 ml/hr tolerating well. Sin catheter patent, draining clear yellow urine. All pressure ulcer prevention measures noted to be in place. No seizure activity noted during the day per endorsement. Fall, aspiration and seizure precautions maintained. All needs attended and intervene as needed. Will continue to monitor with current plan of care.
[2018-01-02 20:00] VITALS: BP 85/51
[2018-01-02] MEDS: Z GUARD REMEDY 2 OZ OINT TP SCH (21:57)
[2018-01-02] MEDS: DOCUSATE SODIUM 100 MG CAPSULE PO SCH (22:00)
[2018-01-03] MEDS: LEVETIRACETAM (500MG) 750 MG in IV NS 0.9% 100 ML IV SCH (01:15)
[2018-01-03 04:00] VITALS: BP 94/56
--- NOTE | 2018-01-03 07:10 | NUR ---
MS/RN OPENING NOTE THE PATIENT IS RECEIVED IN BED. THE PATIENT OBTUNDED. RESPONSE TO TACTILE STIMULI BY OPENING EYES. PATIENT ON OXYGEN AT 2L/MIN. NO MANIFESTATION OF DISTRESS NOTED. LEFT FOREARM G 20 PATENT AND SALINE LOCKED. RIGHT FOREARM G 22 PATENT AND NORMAL SALINE INFUSING AT 100ML/HR AND NO S/S INFILTRATION NOTED. NG TUBE IN PLACE AND SECURES WITH TAPE/ PATIENT GETTING JEVITY 65ML/HR AND NO RESIDUAL NOTED. LAST CATH IN PLACE AND DRAINING CLEAR AND YELLOW COLOR URINE URINE. SIDE RAILS PADDED AND UP. BED LOW AND LOCKED. CALL LIGHT WITHIN REACH. WILL CONTINUE TO MONITOR.
[2018-01-03] MEDS: IV NS 0.9% 1,000 ML IV PRN ×2 (08:12→16:18)
[2018-01-03] MEDS: OXCARBAZEPINE 150 MG TABLET NG SCH ×2 (08:14→17:40)
[2018-01-03] MEDS: PRAMIPEXOLE DI-HCL 0.25 MG TABLET PO SCH ×4 (08:15→20:53)
[2018-01-03] MEDS: MULTIVITAMINS,THERAGRAN 1 UDTAB TABLET PO SCH (08:15)
[2018-01-03] MEDS: LamoTRIgine 100 MG TABLET PO SCH ×2 (08:15→20:53)
[2018-01-03] MEDS: CARBIDOPA/LEVODOPA 25/100 MG 1 UDTAB PO SCH ×3 (08:15→17:39)
[2018-01-03] MEDS: CHOLECALCIFEROL 1,000 UNIT TABLET (VIT D3) PO SCH (08:15)
[2018-01-03] MEDS: Z GUARD REMEDY 2 OZ OINT TP SCH ×2 (08:16→20:55)
[2018-01-03] MEDS: LEVETIRACETAM SOL (5 ML) 100 MG/ML UDC NG SCH ×2 (08:37→20:54)
[2018-01-03 11:05] LABS: BASOPHILS % (AUTO) 0.3 % (0.0-2.0); EOSINOPHILS % (AUTO) 4.1 % (0.0-6.0); HEMATOCRIT 27 % (39-51); HEMOGLOBIN 9.1 g/dL (13.5-17.5); LYMPHOCYTES # (AUTO) 1.1 /CMM (0.8-4.8); LYMPHOCYTES % (AUTO) 17.8 % (20.0-44.0); MEAN CORPUSCULAR HGB CONC 34 g/dl (31.0-36.0); MEAN CORPUSCULAR VOLUME 98 fL (80-96); MONOCYTES # (AUTO) 0.4 /CMM (0.1-1.30); MONOCYTES % (AUTO) 7.1 % (2.0-12.0); NEUTROPHILS # (AUTO) 4.3 /CMM (1.8-8.9); NEUTROPHILS % (AUTO) 70.7 % (43.0-81.0); PLATELET COUNT (AUTO) 187 /CMM (150-450); RED BLOOD CELL COUNT(AUTO) 2.75 MIL/uL (4.5-6.0)
[2018-01-03] MEDS: VALPROIC ACID 250 MG/5 ML UDC NG SCH ×2 (12:29→20:53)
[2018-01-03] MEDS: JEVITY 1.2 CAL 1,000 ML BOTTLE GT PRN (12:36)
--- NOTE | 2018-01-03 12:55 | NUR ---
MS/RN NOTE PATIENT IN BED SLEEPING. PATIENT RECEIVING OXYGEN AT 2L/MIN VIA NASAL CANULA. RESPIRATION REGULAR AND UNLABORED. NO MANIFESTATION OF DISTRESS NOTED. LEFT FA G 20 PATENT AND SALINE LOCKED. RFA G 22 PATENT AND NORMAL SALINE INFUSING AT 100ML/HR AND NO S/S INFILTRATION NOTED. NG TUBE FEEDING ON, NO RESIDUAL NOTED. BED LOW AND LOCKED. SIDE RAILS UP AND PADDED. BED LOW AND LOCKED. CALL LIGHT WITHIN REACH. ENDORSEMENT GIVEN TO THE REEVING NURSE.
--- NOTE | 2018-01-03 13:13 | NUR ---
RECEIVED REPORT FROM DOREEN DEL VALLE.
[2018-01-03 16:00] VITALS: BP 85/60
--- NOTE | 2018-01-03 18:53 | NUR ---
MS RN CLOSING NOTES PATIENT IS IN BED, OBTUNDED. RESPONSE TO TACTILE STIMULI BY OPENING EYES. PATIENT ON OXYGEN AT 2L TOLERATED WELL. NO DISTRESS NOTED. LEFT FOREARM G 20 PATENT S/L. RIGHT FOREARM G 22 PATENT AND NORMAL SALINE INFUSING AT 100ML/HR AND NO S/S INFILTRATION NOTED. NG TUBE IN PLACE AND SECURES WITH TAPE/ PATIENT ONGOING JEVITY 65ML/HR AND NO RESIDUAL NOTED. LAST CATH IN PLACE WITH OUTPUT 1300ML. SIDE RAILS PADDED AND UP. BED LOW AND LOCKED. CALL LIGHT WITHIN REACH. WILL ENDORSE TO NEXT SHIFT FOR [facility].
--- NOTE | 2018-01-03 19:20 | NUR ---
RN OPENING NOTES: RECEIVED PATIENT AWAKE IN BED, NON VERBAL, NO SOB, NO ACUTE DISTRESS, BREATHING EVEN AND UNLABORED, NO S/S OF PAIN AND DISCOMFORT ON O2 VIA NC RUNNING 2LPM AND TOLERATED WELL, O2 SAT 95%, ON NGTUBE INPLACED WITH FEEDING ONGOING AND TOLERATED WELL, NO GASTRIC RESIDUAL NOTED, ON LAST CATHETER INPLACED AND DRAINING CLEAR YELLOW URINE, NO SEDIMENT NOTED, ON IV HYDRATION AND TOLERATED WELL, NO S/S OF FLUID OVERLOAD, IV SITE ON LEFT AND RIGHT FOREARM INTACT AND PATENT WITH NO S/S INFILTRATION NOTED, ALL NEEDS ATTENDED AND MET, WILL CONTINUE TO MONITOR
[2018-01-03 21:19] VITALS: BP 99/55
[2018-01-03] MEDS: DOCUSATE SODIUM 100 MG CAPSULE PO SCH (22:34)
[2018-01-03] MEDS: MAGNESIUM HYDROXIDE 30 ML UDC PO PRN (22:34)
[2018-01-04] MEDS: IV NS 0.9% 1,000 ML IV PRN ×2 (02:46→13:06)
[2018-01-04 05:07] VITALS: BP 111/62
[2018-01-04] MEDS: VALPROIC ACID 250 MG/5 ML UDC NG SCH ×3 (05:37→21:08)
[2018-01-04] MEDS: JEVITY 1.2 CAL 1,000 ML BOTTLE GT PRN ×2 (06:17→23:13)
--- NOTE | 2018-01-04 06:41 | NUR ---
RN CLOSING NOTE: PATIENT IS IN BED, NON VERBAL, NO SOB, NO ACUTE DISTRESS, BREATHING EVEN AND UNLABORED, NO S/S OF PAIN AND DISCOMFORT, ON O2 AT 2 LPM, AND TOLERATED WELL, O2 SAT 98%, IV SITE ON LFA AND RFA INTACT AND PATENT WITH NO S/S OF INFILTRATION. ON IV HYDRATION AND TOLERATED WELL, NO S/S OF FLUID OVERLOAD. NGT INTACT AND PATENT WITH ONGOING FEEDING AND TOLERATED WELL, NO RESIDUAL NOTED. PATIENT NOTED WITH SUDDEN INCREASE IN WEIGHT IN 1 DAY. V/S STABLE. CN MADE AWARE. WILL ENDORSE TO THE NEXT SHIFT TO FOLLOW UP WITH MD IN AM.
--- NOTE | 2018-01-04 06:57 | NUR ---
RN NOTES: NOTIFIED DR. HERNANDEZ REGARDING THE INCREASE OF WEIGHT, PER DR. HERNANDEZ, CHECK THE WEIGHT IN THE MORNING AND IF THE RESULT IS STILL HIGH. DO DIETARY CONSULT. WILL ENDORSE TO THE NEXT SHIFT
[2018-01-04 07:22] LABS: BASOPHILS % (AUTO) 0.5 % (0.0-2.0); EOSINOPHILS % (AUTO) 3.3 % (0.0-6.0); HEMATOCRIT 29 % (39-51); LYMPHOCYTES # (AUTO) 1.1 /CMM (0.8-4.8); LYMPHOCYTES % (AUTO) 13.4 % (20.0-44.0); MEAN CORPUSCULAR HGB CONC 35 g/dl (31.0-36.0); MEAN CORPUSCULAR VOLUME 97 fL (80-96); MONOCYTES # (AUTO) 0.5 /CMM (0.1-1.30); MONOCYTES % (AUTO) 5.8 % (2.0-12.0); NEUTROPHILS # (AUTO) 6.1 /CMM (1.8-8.9); PLATELET COUNT (AUTO) 210 /CMM (150-450); RED BLOOD CELL COUNT(AUTO) 2.97 MIL/uL (4.5-6.0); WHITE BLOOD COUNT (AUTO) 7.9 K/uL (4.3-11.0)
[2018-01-04 07:32] LABS: CALCIUM, SERUM 7.2 mg/dL (8.5-10.1); CREATININE 0.6 mg/dL (0.6-1.3); POTASSIUM 4.4 mmol/L (3.5-5.1)
[2018-01-04 08:00] VITALS: BP 126/60
[2018-01-04] MEDS: LEVETIRACETAM SOL (5 ML) 100 MG/ML UDC NG SCH ×2 (10:08→21:08)
[2018-01-04] MEDS: LamoTRIgine 100 MG TABLET PO SCH ×2 (10:09→21:09)
[2018-01-04] MEDS: CARBIDOPA/LEVODOPA 25/100 MG 1 UDTAB PO SCH ×3 (10:09→16:59)
[2018-01-04] MEDS: PRAMIPEXOLE DI-HCL 0.25 MG TABLET PO SCH ×4 (10:09→21:08)
[2018-01-04] MEDS: MULTIVITAMINS,THERAGRAN 1 UDTAB TABLET PO SCH (10:09)
[2018-01-04] MEDS: OXCARBAZEPINE 150 MG TABLET NG SCH ×2 (10:09→16:59)
[2018-01-04] MEDS: Z GUARD REMEDY 2 OZ OINT TP SCH ×2 (10:17→21:10)
[2018-01-04] MEDS: CHOLECALCIFEROL 1,000 UNIT TABLET (VIT D3) PO SCH (10:17)
[2018-01-04] MEDS: ACETAMINOPHEN 325 MG TABLET PO PRN (13:06)
[2018-01-04 16:00] VITALS: BP_SYST 81; BP_SYST 90; BP_DIAS 38; BP_DIAS 47
[2018-01-04] MEDS: IBUPROFEN 600 MG TABLET PO PRN (16:58)
--- NOTE | 2018-01-04 19:52 | NUR ---
[facility] RN NOTE PATIENT RESTING IN BED IN STABLE CONDITION, NO RESPIRATORY DISTRESS NOTED. NG TUBE FEEDING INFUSING ORDERED, NORMAL SALINE INFUSING ORDERED, IV SITE ON LEFT ARM INTACT. LAST CATHETER DRAINING YELLOW CLEAR URINE TO GRAVITY. SEIZURE PRECAUTIONS IN PLACE, HEAD OF BED ELEVATED, BED IN LOW LOCKED POSITION, ENDORSED TO DRY WALL SPRAYER NURSE FOR CONTINUITY OF CARE.
[2018-01-04 20:00] VITALS: BP 96/47
[2018-01-04] MEDS: DOCUSATE SODIUM 100 MG CAPSULE PO SCH (21:08)
[2018-01-05] MEDS: IV NS 0.9% 1,000 ML IV PRN ×3 (00:13→22:46)
[2018-01-05 04:00] VITALS: BP 100/53
[2018-01-05] MEDS: VALPROIC ACID 250 MG/5 ML UDC NG SCH ×3 (05:22→21:00)
[2018-01-05 05:38] LABS: BASOPHILS % (AUTO) 0.2 % (0.0-2.0); EOSINOPHILS % (AUTO) 3.8 % (0.0-6.0); HEMATOCRIT 26 % (39-51); HEMOGLOBIN 8.7 g/dL (13.5-17.5); MEAN CORPUSCULAR HGB CONC 34 g/dl (31.0-36.0); MEAN CORPUSCULAR VOLUME 98 fL (80-96); MONOCYTES # (AUTO) 0.4 /CMM (0.1-1.30); MONOCYTES % (AUTO) 5.5 % (2.0-12.0); NEUTROPHILS # (AUTO) 6.1 /CMM (1.8-8.9); NEUTROPHILS % (AUTO) 77.5 % (43.0-81.0); PLATELET COUNT (AUTO) 157 /CMM (150-450); RED BLOOD CELL COUNT(AUTO) 2.64 MIL/uL (4.5-6.0); WHITE BLOOD COUNT (AUTO) 7.8 K/uL (4.3-11.0)
--- NOTE | 2018-01-05 07:35 | NUR ---
MS RN OPENING NOTES: RECEIVED PATIENT REPORT FROM PM NURSE,PATIENT IS SLEEPING IN BED, NON VERBAL, NO SOB, NO ACUTE DISTRESS, BREATHING EVEN AND UNLABORED, NO S/S OF PAIN AND DISCOMFORT ON O2 VIA NC 2LPM, HAS NG TUBE WITH FEEDING ONGOING AND TOLERATED WELL, NO GASTRIC RESIDUAL NOTED, LAST CATHETER IN PLACE AND DRAINING CLEAR YELLOW URINE, NO SEDIMENT NOTED, ON IV HYDRATION AND TOLERATED WELL, IV SITE ON RIGHT FOREARM INTACT AND PATENT WITH NO S/S INFILTRATION NOTED.BED IS LOW AND IN LOCKED POSITION.[id number].CALL LIGHT IN REACH.ON SEIZURE PRECAUTION.WILL CONTINUE TO MONITOR.
--- NOTE | 2018-01-05 07:58 | NUR ---
WOUND CARE CONSULT: PT PRESENTS WITH BLANCHABLE REDNESS TO BUTTOCKS, PRESENT ON ADMISSION. Z GUARD IN USE FOR SKIN PROTECTION. LAST NOTED. SKIN IS TIGHT AND SHINY ON LEGS. ALL SKIN PROTECTION MEASURES IN PLACE AND DISCUSSED WITH NURSING STAFF. PT ON FIRST STEP CIRRUS LOW AIRLOSS MATTRESS. CURRENT SHANI SCORE IS 9. WILL SEE PRN. IN AGREEMENT WITH PLAN OF CARE.
[2018-01-05 08:00] VITALS: BP 133/76
[2018-01-05] MEDS: CARBIDOPA/LEVODOPA 25/100 MG 1 UDTAB PO SCH ×3 (09:01→18:31)
[2018-01-05] MEDS: PRAMIPEXOLE DI-HCL 0.25 MG TABLET PO SCH ×4 (09:01→21:00)
[2018-01-05] MEDS: OXCARBAZEPINE 150 MG TABLET NG SCH (09:01)
[2018-01-05] MEDS: LEVETIRACETAM SOL (5 ML) 100 MG/ML UDC NG SCH ×2 (09:01→21:00)
[2018-01-05] MEDS: MULTIVITAMINS,THERAGRAN 1 UDTAB TABLET PO SCH (09:01)
[2018-01-05] MEDS: CHOLECALCIFEROL 1,000 UNIT TABLET (VIT D3) PO SCH (09:02)
[2018-01-05] MEDS: LamoTRIgine 100 MG TABLET PO SCH ×2 (09:02→21:00)
[2018-01-05] MEDS: Z GUARD REMEDY 2 OZ OINT TP SCH ×2 (09:04→21:01)
[2018-01-05 12:00] VITALS: BP 108/50
[2018-01-05 16:00] VITALS: BP 117/57
--- NOTE | 2018-01-05 19:45 | NUR ---
RN NOTES RECEIVED PATIENT ASLEEP IN BED, ABLE TO OPEN EYES TO NAME. NON VERBAL NO ACUTE RESPIRATORY DISTRESS, ZERO FLACC FOR PAIN AND DISCOMFORT, NGTF TOLERATED WELL NO GASTRIC RESIDUAL NOTED, LAST CATHETER IN PLACE AND DRAINING CLEAR YELLOW URINE, NO SEDIMENT NOTED, ON IV HYDRATION AND TOLERATED WELL, IV SITE ON RIGHT FOREARM INTACT AND PATENT. BED LOCKED IN POSITION. PADDED SIDE RAILS FOR SEIZURE PRECAUTION . OFFLOADED EXT WITH PILLOWS. REPOSITION AND TURNED. KEPT PT CLEAN AND COMFORTABLE IN BED. HOB KEPT ELEVATED. WILL CONTINUE TO MONITOR.
--- NOTE | 2018-01-05 20:15 | NUR ---
MS RN CLOSING NOTES: PATIENT IS SLEEPING IN BED, NON VERBAL, NO SOB, NO ACUTE DISTRESS, BREATHING EVEN AND UNLABORED, NO S/S OF PAIN AND DISCOMFORT ON O2 VIA NC 2LPM, HAS NG TUBE WITH FEEDING ONGOING AND TOLERATED WELL, NO GASTRIC RESIDUAL NOTED, LAST CATHETER IN PLACE AND DRAINING CLEAR YELLOW URINE, NO SEDIMENT NOTED, ON IV HYDRATION AND TOLERATED WELL, IV SITE ON RIGHT FOREARM INTACT AND PATENT WITH NO S/S INFILTRATION NOTED.BED IS LOW AND IN LOCKED POSITION.SRX3.CALL LIGHT IN REACH.ON SEIZURE PRECAUTION.ENDORSED PM NURSE FOR MASON.ASKED TO F/U WITH PEG PLACEMENT WITH . MADE AWARE ABOUT THE FAILED SWALLOW EVAL.
[2018-01-05] MEDS: DOCUSATE SODIUM 100 MG CAPSULE PO SCH (21:04)
[2018-01-06] VITALS: BP 121/60
[2018-01-06] MEDS: JEVITY 1.2 CAL 1,000 ML BOTTLE GT PRN (00:45)
--- NOTE | 2018-01-06 01:40 | NUR ---
RN NOTES SEEN AND EXAMINED BY DR. FONTAINE AT BEDSIDE. FOLLOW UP REGARDING PEG, PER MD TO GET CONSULT TO GI. LEFT A MESSAGE TO ONCALL GI. WAITING FOR THE RESPONSE
[2018-01-06] MEDS: VALPROIC ACID 250 MG/5 ML UDC NG SCH ×3 (05:32→21:39)
[2018-01-06 06:37] LABS: BASOPHILS % (AUTO) 0.4 % (0.0-2.0); EOSINOPHILS % (AUTO) 2.9 % (0.0-6.0); HEMATOCRIT 28 % (39-51); HEMOGLOBIN 9.9 g/dL (13.5-17.5); LYMPHOCYTES % (AUTO) 10.3 % (20.0-44.0); MEAN CORPUSCULAR HGB CONC 35 g/dl (31.0-36.0); MEAN CORPUSCULAR VOLUME 97 fL (80-96); MONOCYTES # (AUTO) 0.6 /CMM (0.1-1.30); MONOCYTES % (AUTO) 5.9 % (2.0-12.0); NEUTROPHILS # (AUTO) 7.8 /CMM (1.8-8.9); NEUTROPHILS % (AUTO) 80.5 % (43.0-81.0); PLATELET COUNT (AUTO) 201 /CMM (150-450); RED BLOOD CELL COUNT(AUTO) 2.95 MIL/uL (4.5-6.0); WHITE BLOOD COUNT (AUTO) 9.7 K/uL (4.3-11.0)
--- NOTE | 2018-01-06 06:39 | NUR ---
RN NOTES PT REMAINED THE SAME NO SIGNIFICANT CHANGE OF CONDITION THROUGHOUT THE SHIFT. CONTINUE PLAN OF CARE. ALL NURSING MEASURES PROVIDED. IVF CONTINUE RUNNING ON RIGHT FOREARM. WILL FOLLOW UP MD FOR DISCONTINUATION OF IVF , PT IS ON NGTF AND TOLERATED WELL. PT IS CLEANED AND DRY IN COMFORTABLE POSITION. WILL ENDORSED CONTINUITY OF CARE TO AM NURSE AND TO FOLLOW UP FOR GI CONSULT.
[2018-01-06 08:00] VITALS: BP 111/63
--- NOTE | 2018-01-06 08:00 | NUR ---
MS RN NOTE \ PATIENT IN BED NON VERBAL WITH OPEN BOTH EYES, WITH LAST CATH TO GRAVITY YELLOW CLEAR URINE, PATIENT HAS JAVITY AT 65 ML/HR, VIA NG TUBE, PLACEMENT CHECKED NO RESIDUAL NOTED, NG TUBE ON LEFT NARE, RIGHT FOREARM HL INTACT NO S\S NOTED , ON IVF ORDERED , ON KCI MATRES ORDERED , BED IN LOWEST AND LOCKED , ON SEIZURE PRECAUTION POTION, BED IN LOWEST AND LOCKED POSITION , WILL CONT TO MONITION
[2018-01-06] MEDS: CHOLECALCIFEROL 1,000 UNIT TABLET (VIT D3) PO SCH (08:26)
[2018-01-06] MEDS: LamoTRIgine 100 MG TABLET PO SCH ×2 (08:27→21:26)
[2018-01-06] MEDS: LEVETIRACETAM SOL (5 ML) 100 MG/ML UDC NG SCH ×2 (08:27→21:25)
[2018-01-06] MEDS: CARBIDOPA/LEVODOPA 25/100 MG 1 UDTAB PO SCH ×3 (08:28→16:16)
[2018-01-06] MEDS: MULTIVITAMINS,THERAGRAN 1 UDTAB TABLET PO SCH (08:28)
[2018-01-06] MEDS: PRAMIPEXOLE DI-HCL 0.25 MG TABLET PO SCH ×4 (08:28→21:26)
[2018-01-06] MEDS: Z GUARD REMEDY 2 OZ OINT TP SCH ×2 (08:29→21:39)
--- NOTE | 2018-01-06 11:00 | NUR ---
MS RN NOTES DR SID GASPAR AT BED SIDE OK TO PLACE PEG PLACEMENT. PATIENT HAS NO FAMILY, TWO NURSES SIGNED CONSENT, PER MICHAEL RICK NOTES PATIENT NEEDS G TUBE PLACEMENT BY GI DOCTOR.
[2018-01-06] MEDS: IV NS 0.9% 1,000 ML IV PRN (12:35)
--- NOTE | 2018-01-06 14:08 | NUR ---
SOFTWARE ENGINEERING SPECIALIST NOTE PER DR SID GASPAR I NPO AFTER MIDNIGHT
[2018-01-06 16:00] VITALS: BP 120/68
[2018-01-06] MEDS: ACETAMINOPHEN 325 MG TABLET PO PRN (17:23)
--- NOTE | 2018-01-06 17:25 | NUR ---
MS RN NOTE NOTED PATIENT IS GRIMACING TYLENOL FOR GENERAL PAIN GIVEN ,WILL F\U
--- NOTE | 2018-01-06 18:38 | NUR ---
MS RN NOTE ALL NEEDS ATTENDED .WILL CONT TO MONIOTR CLOSELY
[2018-01-06 20:00] VITALS: BP 151/80
--- NOTE | 2018-01-06 20:00 | NUR ---
TATIANA RN NOTES RECEIVED PATIENT'S REPORT FROM AM NURSE. PATIENT IN BED NON VERBAL WITH OPEN EYES, WITH LAST CATH TO GRAVITY YELLOW CLEAR URINE, PATIENT HAS NG TUBE FEEDING JAVITY AT 65 ML/HR, PLACEMENT CHECKED NO RESIDUAL NOTED, NG TUBE ON LEFT NARE, RIGHT FOREARM HL INTACT NO S\S NOTED , ON IVF ORDERED , ON KCI MATRES ORDERED , BED IN LOWEST AND LOCKED , ON SEIZURE PRECAUTIONS. WILL CONT TO MONITION.
[2018-01-06] MEDS: DOCUSATE SODIUM 100 MG CAPSULE PO SCH (21:25)
[2018-01-06] MEDS: IBUPROFEN 600 MG TABLET PO PRN (21:26)
[2018-01-07] MEDS: IV NS 0.9% 1,000 ML IV PRN ×3 (00:16→21:45)
[2018-01-07 04:00] VITALS: BP 116/45
[2018-01-07] MEDS: VALPROIC ACID 250 MG/5 ML UDC NG SCH ×3 (05:47→20:26)
[2018-01-07 06:30] LABS: BASOPHILS # (AUTO) 0.1 /CMM (0.0-0.2); BASOPHILS % (AUTO) 0.5 % (0.0-2.0); EOSINOPHILS % (AUTO) 2.4 % (0.0-6.0); HEMATOCRIT 30 % (39-51); LYMPHOCYTES # (AUTO) 1.1 /CMM (0.8-4.8); LYMPHOCYTES % (AUTO) 10.1 % (20.0-44.0); MEAN CORPUSCULAR HGB CONC 34 g/dl (31.0-36.0); MEAN CORPUSCULAR VOLUME 97 fL (80-96); MONOCYTES # (AUTO) 0.7 /CMM (0.1-1.30); MONOCYTES % (AUTO) 6.1 % (2.0-12.0); NEUTROPHILS # (AUTO) 9.1 /CMM (1.8-8.9); NEUTROPHILS % (AUTO) 80.9 % (43.0-81.0); PLATELET COUNT (AUTO) 203 /CMM (150-450); RED BLOOD CELL COUNT(AUTO) 3.04 MIL/uL (4.5-6.0); WHITE BLOOD COUNT (AUTO) 11.2 K/uL (4.3-11.0)
[2018-01-07] MEDS: LamoTRIgine 100 MG TABLET PO SCH ×2 (09:00→20:27)
[2018-01-07] MEDS: CHOLECALCIFEROL 1,000 UNIT TABLET (VIT D3) PO SCH (09:00)
[2018-01-07] MEDS: PRAMIPEXOLE DI-HCL 0.25 MG TABLET PO SCH ×4 (09:00→20:27)
[2018-01-07] MEDS: CARBIDOPA/LEVODOPA 25/100 MG 1 UDTAB PO SCH ×3 (09:00→16:24)
[2018-01-07] MEDS: Z GUARD REMEDY 2 OZ OINT TP SCH ×2 (09:00→20:28)
[2018-01-07] MEDS: LEVETIRACETAM SOL (5 ML) 100 MG/ML UDC NG SCH ×2 (09:00→20:27)
[2018-01-07] MEDS: MULTIVITAMINS,THERAGRAN 1 UDTAB TABLET PO SCH (09:00)
[2018-01-07 12:00] VITALS: BP 125/79
[2018-01-07] MEDS: ACETAMINOPHEN 325 MG TABLET PO PRN (16:24)
[2018-01-07] MEDS: JEVITY 1.2 CAL 1,000 ML BOTTLE GT PRN (16:27)
--- NOTE | 2018-01-07 19:30 | NUR ---
MS RN NOTE PT ENDORSED TO PM NURSE FOR MASON. PT IN BED, AWAKE. NO S/SX OF DISTRESS NOTED. SAFETY PRECAUTIONS IN PLACE. CALL LIGHT IN REACH.
[2018-01-07 20:00] VITALS: BP_SYST 120; BP_SYST 130; BP_DIAS 63; BP_DIAS 81
[2018-01-07] MEDS: DOCUSATE SODIUM 100 MG CAPSULE PO SCH (21:00)
[2018-01-08 04:00] VITALS: BP 149/77
[2018-01-08] MEDS: VALPROIC ACID 250 MG/5 ML UDC NG SCH ×3 (05:00→22:26)
[2018-01-08 06:31] LABS: BASOPHILS % (AUTO) 0.2 % (0.0-2.0); EOSINOPHILS % (AUTO) 3.7 % (0.0-6.0); HEMATOCRIT 34 % (39-51); HEMOGLOBIN 11.2 g/dL (13.5-17.5); LYMPHOCYTES # (AUTO) 1.2 /CMM (0.8-4.8); LYMPHOCYTES % (AUTO) 12.8 % (20.0-44.0); MEAN CORPUSCULAR HGB CONC 33 g/dl (31.0-36.0); MEAN CORPUSCULAR VOLUME 98 fL (80-96); MONOCYTES # (AUTO) 0.8 /CMM (0.1-1.30); NEUTROPHILS # (AUTO) 7.2 /CMM (1.8-8.9); NEUTROPHILS % (AUTO) 75.3 % (43.0-81.0); PLATELET COUNT (AUTO) 244 /CMM (150-450); RED BLOOD CELL COUNT(AUTO) 3.42 MIL/uL (4.5-6.0); WHITE BLOOD COUNT (AUTO) 9.6 K/uL (4.3-11.0)
[2018-01-08 06:39] LABS: CREATININE 0.6 mg/dL (0.6-1.3); POTASSIUM 4.3 mmol/L (3.5-5.1)
[2018-01-08 08:00] VITALS: BP 127/69
[2018-01-08] MEDS: MULTIVITAMINS,THERAGRAN 1 UDTAB TABLET PO SCH (09:00)
[2018-01-08] MEDS: CARBIDOPA/LEVODOPA 25/100 MG 1 UDTAB PO SCH ×3 (09:00→17:43)
[2018-01-08] MEDS: CHOLECALCIFEROL 1,000 UNIT TABLET (VIT D3) PO SCH (09:00)
[2018-01-08] MEDS: LamoTRIgine 100 MG TABLET PO SCH ×2 (09:00→22:24)
[2018-01-08] MEDS: LEVETIRACETAM SOL (5 ML) 100 MG/ML UDC NG SCH ×2 (09:00→22:21)
[2018-01-08] MEDS: PRAMIPEXOLE DI-HCL 0.25 MG TABLET PO SCH ×4 (09:00→22:21)
[2018-01-08] MEDS: Z GUARD REMEDY 2 OZ OINT TP SCH ×2 (10:07→22:27)
[2018-01-08] MEDS: IV NS 0.9% 1,000 ML IV PRN ×2 (10:15→22:41)
[2018-01-08] MEDS ORDERED: MIDAZOLAM HCL 2 MG/2ML VIAL ONE (10:33)
[2018-01-08] MEDS ORDERED: FENTANYL PF 100MCG/2ML AMPUL ONE (10:34)
[2018-01-08] MEDS ORDERED: FAMOTIDINE/PF INJ 20 MG/2 ML VIAL IV ONE (10:34)
[2018-01-08] MEDS ORDERED: ANESTHESIA TRAY IN PYXIS 1 EA TRAY MC ONE (10:35)
[2018-01-08 12:00] VITALS: BP 104/60
[2018-01-08 12:15] VITALS: BP 105/72
[2018-01-08 16:00] VITALS: BP 130/86
[2018-01-08 17:29] LABS: URINE SODIUM, RANDOM 159 mmol/l (40-220)
[2018-01-08 20:00] VITALS: BP 183/87
--- NOTE | 2018-01-08 20:00 | NUR ---
RN INITIAL NOTES RECEIVED PATIENT IN BED, NON VERBAL WITH OPEN EYES,WITH LAST CATH TO GRAVITY YELLOW CLEAR URINE. PATIENT NPO. G TUBE IN PLACE. RIGHT FOREARM HL INTACT NO S\S NOTED , ON IVF ORDERED , ON KCI MATRES ORDERED , BED IN LOWEST AND LOCKED , ON SEIZURE PRECAUTIONS. WILL CONT TO MONITION.
[2018-01-08 21:07] LABS: OSMOLALITY,URINE 444 mOS/kg (340-1090)
[2018-01-08] MEDS: DOCUSATE SODIUM 100 MG CAPSULE PO SCH (22:21)
[2018-01-09 04:00] VITALS: BP 149/75
[2018-01-09] MEDS: VALPROIC ACID 250 MG/5 ML UDC NG SCH ×2 (05:26→12:08)
--- NOTE | 2018-01-09 06:55 | NUR ---
RN INITIAL NOTE PT IN BED, AWAKE. NO S/SX OF DISTRESS NOTED. ALL NEEDS ANTICIPATED AND MET. SAFETY PRECAUTIONS IN PLACE. CALL LIGHT IN REACH. WILL ENDORSE TO AM RN.
--- NOTE | 2018-01-09 07:01 | NUR ---
RN CLOSING NOTE PT IN BED, AWAKE. NO S/SX OF DISTRESS NOTED. ALL NEEDS ANTICIPATED AND MET. SAFETY PRECAUTIONS IN PLACE. CALL LIGHT IN REACH. WILL ENDORSE TO AM RN.
[2018-01-09 07:34] LABS: BASOPHILS % (AUTO) 0.2 % (0.0-2.0); EOSINOPHILS % (AUTO) 0.8 % (0.0-6.0); HEMATOCRIT 32 % (39-51); HEMOGLOBIN 10.6 g/dL (13.5-17.5); LYMPHOCYTES # (AUTO) 0.9 /CMM (0.8-4.8); LYMPHOCYTES % (AUTO) 6.6 % (20.0-44.0); MEAN CORPUSCULAR HGB CONC 34 g/dl (31.0-36.0); MEAN CORPUSCULAR VOLUME 97 fL (80-96); MONOCYTES % (AUTO) 7.3 % (2.0-12.0); NEUTROPHILS # (AUTO) 12.1 /CMM (1.8-8.9); NEUTROPHILS % (AUTO) 85.1 % (43.0-81.0); PLATELET COUNT (AUTO) 286 /CMM (150-450); RED BLOOD CELL COUNT(AUTO) 3.28 MIL/uL (4.5-6.0); WHITE BLOOD COUNT (AUTO) 14.2 K/uL (4.3-11.0)
[2018-01-09 07:47] LABS: CALCIUM, SERUM 7.9 mg/dL (8.5-10.1); CREATININE 0.7 mg/dL (0.6-1.3); MAGNESIUM 1.7 mg/dL (1.8-2.4); POTASSIUM 4.8 mmol/L (3.5-5.1)
[2018-01-09 07:53] LABS: THYROID STIMULATING HORMONE 2.087 uIU/mL (0.358-3.74); URIC ACID 2.2 mg/dL (2.6-7.2)
[2018-01-09 08:00] VITALS: BP 115/68
[2018-01-09] MEDS ORDERED: JEVITY 1.2 CAL 1,000 ML BOTTLE GT PRN (08:00)
[2018-01-09] MEDS: CARBIDOPA/LEVODOPA 25/100 MG 1 UDTAB PO SCH ×3 (09:24→17:46)
[2018-01-09] MEDS: MULTIVITAMINS,THERAGRAN 1 UDTAB TABLET PO SCH (09:24)
[2018-01-09] MEDS: LamoTRIgine 100 MG TABLET PO SCH (09:25)
[2018-01-09] MEDS: PRAMIPEXOLE DI-HCL 0.25 MG TABLET PO SCH ×3 (09:25→17:46)
[2018-01-09] MEDS: LEVETIRACETAM SOL (5 ML) 100 MG/ML UDC NG SCH (09:29)
[2018-01-09] MEDS: IV NS 0.9% 1,000 ML IV PRN (09:30)
[2018-01-09] MEDS: CHOLECALCIFEROL 1,000 UNIT TABLET (VIT D3) PO SCH (09:32)
[2018-01-09] MEDS: Z GUARD REMEDY 2 OZ OINT TP SCH (09:32)
[2018-01-09] MEDS: Magnesium 1GM/D5W 100ML PREMIX 100 ML IV SCH ×2 (11:53→13:10)
[2018-01-09] MEDS ORDERED: METOCLOPRAMIDE HCL 10 MG/2 ML VIAL IV PRN (15:30)
[2018-01-09 16:00] VITALS: BP 99/55
--- NOTE | 2018-01-09 18:05 | NUR ---
rn note pt discharged to [place] by ambulance, in stable condition, iv removed, id band removed, boyce left in place, pictures taken, discharge instructions provided, exit care done, pt unable to comprehend, g tube site is clean and dry, no belongings. report given to bello. papers given to ambulance.
[2018-01-10] MEDS ORDERED: LORA2VIA11 IM (14:07)
[2018-01-10] MEDS ORDERED: [UNRECOGNIZED DRUG - CODE] GT (14:07)
[2018-01-10] MEDS ORDERED: VALP250S22 GT (14:07)
== END 2018-01-09 18:40 | DRG 101 ==
LOC: ER 14:48 → TELE-TD 17:22 → MEDSG1 12-29 12:34
PROVIDERS: ADMIT Internal Medicine Rheumatology; ATTEND Internal Medicine Rheumatology
PROC: 0DJ08ZZ Inspection of Upper Intestinal Tract, Via Natural or Artificial Opening Endoscopic (ICD-10-PCS; 2018-01-08)
PROC: 0DH63UZ Insertion of Feeding Device into Stomach, Percutaneous Approach (ICD-10-PCS; principal; 2018-01-08 10:30)
DX: G40.409 Other generalized epilepsy and epileptic syndromes, not intractable, without status epilepticus (principal); E22.2 Syndrome of inappropriate secretion of antidiuretic hormone; G82.20 Paraplegia, unspecified; Z86.73 Personal history of transient ischemic attack (TIA), and cerebral infarction without residual deficits; K21.9 Gastro-esophageal reflux disease without esophagitis; E87.6 Hypokalemia; E78.5 Hyperlipidemia, unspecified; F41.9 Anxiety disorder, unspecified; R13.10 Dysphagia, unspecified; Z98.2 Presence of cerebrospinal fluid drainage device; D64.9 Anemia, unspecified; R53.1 Weakness; F20.9 Schizophrenia, unspecified; G20 Parkinson's disease; F03.90 Unspecified dementia, unspecified severity, without behavioral disturbance, psychotic disturbance, mood disturbance, and anxiety; F29 Unspecified psychosis not due to a substance or known physiological condition; H52.4 Presbyopia; N31.9 Neuromuscular dysfunction of bladder, unspecified; I95.9 Hypotension, unspecified; T42.6X5A Adverse effect of other antiepileptic and sedative-hypnotic drugs, initial encounter; Y92.129 Unspecified place in nursing home as the place of occurrence of the external cause; M85.80 Other specified disorders of bone density and structure, unspecified site; Z86.011 Personal history of benign neoplasm of the brain; F31.9 Bipolar disorder, unspecified
CPT/HCPCS: 36415; 43760; 70450-TC; 71045-TC; 74018; 80048-TC; 80076-TC; 80164-TC; 80175; 80177; 80202-TC; 80305; 81000-TC; 82150-TC; 82533; 82962-TC; 83605-TC; 83690-TC; 83735-TC; 83935-TC; 84100-TC; 84300-TC; 84436-TC; 84443-TC; 84484-TC; 84550-TC; 85025-TC; 85652-TC; 85730-TC; 86850-TC; 87040-TC; 87081-TC; 87086-TC; 92526; 92611-TC; 93971-TC; A4606; G0378; J0696; J1953; J2060; J2250; J2543; J2704; J3010; J3370; J3475; J3480; J3490; J7030; J7050; J7060; Z7610

== ENCOUNTER 2018-01-10 13:33 | Inpatient (IN) | payer MEDICARE, MEDICAID ==
[~2018-01-10] VITALS: Ht 172.7 cm; Wt 67.1 kg
[2018-01-10] VITALS (31 sets, daily range): BP systolic 74–164; BP diastolic 36–102
--- NOTE | 2018-01-10 13:42 | NUR ---
RT Pt received in the ER from [facility]. Pt obtunded and in respiratory distress. Pt intubated w 7.5 ETT @ 24 at the lip. Positive Co2 change. Equal and bilateral chest rise noted. Vent is plugged into red outlet. Alarms are on and audible. Ambubag @ hob.
[2018-01-10] MEDS ORDERED: PROPOFOL 100 ML ONE (13:54)
[2018-01-10 13:58] LABS: APPEARANCE,URINE Slightly Cloudy (CLEAR); BILIRUBIN,URINE Negative (NEGATIVE); BLOOD, URINE Moderate Ery/uL (NEGATIVE); COLOR,URINE Dark (YELLOW); KETONES,URINE Negative (NEGATIVE); LEUKOCYTE ESTERASE ,URINE Negative (NEGATIVE); NITRITE, URINE Negative (NEGATIVE); PROTEIN,URINE 30 mg/dl (NEGATIVE); UGLUCOSE Negative (NEGATIVE); UROBILINOGEN,URINE 0.2 EU/dL (0.2)
[2018-01-10] MEDS ORDERED: PROPOFOL 100 ML IV PRN (14:00)
[2018-01-10] MEDS ORDERED: ONDANSETRON HCL/PF 4 MG/2 ML VIAL IVP ONE (14:00)
[2018-01-10] MEDS ORDERED: IV NS 0.9% 500 ML BAG IV ONE (14:00)
[2018-01-10] MEDS ORDERED: VANCOMYCIN 1 GM in IV D5W 250 ML IV ONE (14:00)
[2018-01-10] MEDS ORDERED: PIPERACILLIN /TAZOBACTAM 3.375 G in IV D5W 50 ML IV ONE (14:00)
--- NOTE | 2018-01-10 14:00 | NUR ---
DIPRIVAN DRIP TO TIRATION AT 30MCG/KG/MIN AT 14ML/HR FOR SEDATION
--- NOTE | 2018-01-10 14:03 | NUR ---
PT ADMIT TO ICU ROOM 255 RN BERYL DX RESIPIRATORY FAILURE
[2018-01-10] MEDS ORDERED: [UNRECOGNIZED DRUG - CODE] GT (14:07)
[2018-01-10] MEDS ORDERED: LORA2VIA11 IM (14:07)
[2018-01-10] MEDS ORDERED: VALP250S22 GT (14:07)
--- NOTE | 2018-01-10 14:10 | NUR ---
1333-PT [id number] FROM [facility] FOR O2 DESATURATION IN THE 70'S, PER EMS. PT OBTUNDED AOX0, PUPILS UNEQUAL, RIGHT 3MM REACTIVE TO LIGHT, LEFT SIDE 8MM NONREACTIVE TO LIGHT. PT HAS SHALLOW, LABORED BREATHING, BREATH SOUND EQUAL AND BILATERAL CRACKLES AUSCULATED ON BASES.PT PLACED ON 15L NON REBREATHER MASC AND MONITOR.PT IS SINUS TACHYCARDIC, BP NORMOTENSIVE, AND SPO2 89% 1334-DR. GILLESPIE AND RT AT BEDSIDE FOR RAPID SEQUENCE INTUBATION [address] GILLESPIE ETOMIDATE 20MG IVP AND SUCCYCHOLINE 120MG IVP TO L HAND G 20 FOR RSI GIVEN [address] GILLESPIE, +COLOR CHANGE, BREATH SOUNDS ON BILATERAL LUNGS, 7.5 ET TUBE, 24 LIP LINE. 1352 XRAY AT BEDSIDE, CONFIRMED ET TUBE PLACEMENT 1400 PROPOFOL STARTED TO TRITATION FOR SEDATION
[2018-01-10 14:19] LABS: BACTERIA,URINE 2+ /HPF (None Seen); MUCUS,URINE Many /LPF (None Seen); SQUAMOUS EPITHELIAL CELL,UR None Seen /HPF (None Seen)
[2018-01-10] MEDS ORDERED: IV NS 0.9% 1,000 ML IV ONE (14:30)
[2018-01-10 14:33] LABS: BASOPHILS % (AUTO) 0.2 % (0.0-2.0); EOSINOPHILS % (AUTO) 0.4 % (0.0-6.0); HEMATOCRIT 31 % (39-51); HEMOGLOBIN 10.6 g/dL (13.5-17.5); LYMPHOCYTES # (AUTO) 0.2 /CMM (0.8-4.8); LYMPHOCYTES % (AUTO) 3.9 % (20.0-44.0); MEAN CORPUSCULAR HGB CONC 34 g/dl (31.0-36.0); MEAN CORPUSCULAR VOLUME 95 fL (80-96); MONOCYTES # (AUTO) 0.1 /CMM (0.1-1.30); MONOCYTES % (AUTO) 1.4 % (2.0-12.0); NEUTROPHILS # (AUTO) 5.7 /CMM (1.8-8.9); NEUTROPHILS % (AUTO) 94.1 % (43.0-81.0); PLATELET COUNT (AUTO) 321 /CMM (150-450); RED BLOOD CELL COUNT(AUTO) 3.24 MIL/uL (4.5-6.0); WHITE BLOOD COUNT (AUTO) 6.1 K/uL (4.3-11.0)
[2018-01-10 14:43] LABS: CALCIUM, SERUM 7.3 mg/dL (8.5-10.1); CARBON DIOXIDE 27 mmol/L (21-32); CHLORIDE 90 mmol/L (98-107); CREATININE 0.9 mg/dL (0.6-1.3); GLUCOSE 105 mg/dL (74-106); POTASSIUM 3.7 mmol/L (3.5-5.1); SODIUM SERUM 126 mmol/L (136-145); UREA NITROGEN, BLOOD 12 mg/dL (7-18)
[2018-01-10] MEDS ORDERED: IV NS 0.9% 1,000 ML BAG IV PRN (15:00)
[2018-01-10 15:12] LABS: ALANINE AMINOTRANSFERASE 21 U/L (12-78); ALBUMIN 2.1 g/dL (3.4-5.0); ALKALINE PHOSPHATASE 58 U/L (46-116); ASPARTATE AMINOTRANSFERASE 34 U/L (15-37); B-TYPE NATRIURETIC PEPTIDE 346 PG/ML (0-125); BILIRUBIN,DIRECT 0.1 mg/dL (0.0-0.2); BILIRUBIN,TOTAL 0.4 mg/dL (0.2-1.0); TOTAL PROTEIN, SERUM 6.5 g/dL (6.4-8.2)
--- NOTE | 2018-01-10 15:40 | NUR ---
ABG done. Vent settings changed RR 10, FiO2 70%, Peep +0 per MD orders.
--- NOTE | 2018-01-10 15:55 | NUR ---
GAVE REPORT TO DOREEN CORDOBA FOR CONTINUITY OF CARE IN ICU
--- NOTE | 2018-01-10 16:04 | NUR ---
RT Pt transported to ICU 254. Pt is stable. Vent is plugged into red outlet w ambubag @ hob. Alarms are on and audible.
--- NOTE | 2018-01-10 16:08 | NUR ---
PT TRANSFEERED TO ROOM 254 VIA ACLS PROTOCOL WITH RT
--- NOTE | 2018-01-10 16:10 | NUR ---
INITIAL DRAMATIC TEACHER NOTE RCVD PT SEDATED ON DIPRIVAN, OBTUNDED, WITHDRAWS FROM PAINFUL STIMULI. SR ON MONITOR. INTUBATED ETT 7.5 24 AT LIP TOLERATING ORDERED VENT SETTINGS. UPON GETTING PT SETTLED IN ROOM PT HAD AN EPISODE OF EMESIS WITH GREEN GASTRIC CONTENTS SUCTIONED FROM HIS MOUTH. PT'S ABDOMEN WAS DISTENDED, PT'S GASTRIC TUBE WAS CONNECTED TO LOW INTERMITTENT SUCTION WITH 1.1 LITERS OF GREEN GASTRIC CONTENTS ASPIRATED. LAST TO GRAVITY DRAINING CLEAR, YELLOW URINE. IV SITES C/D/I/PATENT. NO S/O INFILTRATION/PHLEBITIS OBSERVED UPON FLUSHING. KCI MATTRESS IN PLACE. PICTURES TAKEN PER PROTOCOL AND WOUND CONSULT IN PLACE. WILL CONTINUE TO MONITOR PT FOR SAFETY AND COMFORT. BED IN LOW AND LOCKED POSITION.
[2018-01-10 17:12] LABS: ABG OXYGEN SATURATION 98.8 % (92.0-98.5); ABG PCO2 31.8 mmHg (35.0-45.0); ABG PH 7.508 (7.350-7.450); ABG PO2 173.4 mmHg (75.0-100.0); AaDO2 507.8 mmHg; COHb 0.3 % (0.5-1.5); MetHb 0.6 % (0.0-1.5); O2Hb 97.9 % (94.0-97.0); PEEP,BG 5 cm H2O; SITE, ABG Right Brachial; VT, ABG 450 mL
[2018-01-10 17:33] LABS: ABG BASE EXCESS 0.3 mmol/L; ABG OXYGEN SATURATION 96.6 % (92.0-98.5); ABG PCO2 34.5 mmHg (35.0-45.0); ABG PH 7.458 (7.350-7.450); ABG PO2 94.7 mmHg (75.0-100.0); AaDO2 367.3 mmHg; COHb 0.2 % (0.5-1.5); MetHb 0.5 % (0.0-1.5); O2Hb 95.9 % (94.0-97.0); PEEP,BG 0 cm H2O; SITE, ABG Right Radial; VT, ABG 450 mL
[2018-01-10] MEDS ORDERED: ETOMIDATE 2 MG/ML VIAL IV ONE (17:45)
[2018-01-10] MEDS: PROPOFOL 100 ML IV PRN (17:51)
--- NOTE | 2018-01-10 18:26 | NUR ---
RETAIL MAINTENANCE TECHNICIAN ADMITTED INTO ICU ROOM 255 FROM ER VIA MONITORED GURNEY. REPORT RECEIVED FROM INDUSTRIAL MAINTENANCE TECH. PT CAME IN FOR INCREASING DYSPNEA FOR LAST FEW DAYS. PT INITIALLY NOTICED BECOMING EASILY DYSPNEIC WITH EXERTION ABOUT A MONTH AGO. PT REPORTED HAVING THE FLU STARTING FRIDAY AND BECAME MORE SHORT OF BREATH. PT WAS SEEN IN URGENT CARE TODAY AND WAS SENT TO THE ER. PT ABLE TO AMBULATE INTO ROOM. PT PLACED ON 2L NC WITH SPO2 96%. PT STATED THAT HE IS MORE COMFORTABLE NOW. Addendum: 01/10/18 at 1859 by CHACE THOMAS RN ABOVE NOTE FOR ANOTHER PATIENT. PLEASE DISREGARD
--- NOTE | 2018-01-10 18:57 | NUR ---
HOOP DRIVING MACHINE OPERATOR HELPER NOTE PT REMAINS STABLE NO S/O DISTRESS OBSERVED. DR. FONTAINE CALLED FOR ADMISSION ORDERS, HE STATES THAT WILL COME TO SEE PT TONIGHT. PT'S BP DROPPED TO THE 70's. DR. FONTAINE RECOMMENDED TO GIVE 500 ML NS BOLUS X 1 +1 IF NO RESPONSE TO SBP 90mmHG. IF AFTER THE 1 LITER BOLUS NO RESPONSE THEN START PT ON LEVOPHED DRIP WHICH IS ALREADY ORDERED. PT'S CARE WILL BE ENDORSED TO WOOD WINDOW AND DOOR CRAFTSMAN RN FOR CONTINUITY OF CARE. BED IN LOW AND LOCKED POSITION.
[2018-01-10] MEDS ORDERED: IV NS 0.9% 500 ML IV ONE ×2 (19:00→21:30)
[2018-01-10] MEDS: NOREPINEPHRINE 8 MG in IV D5W 500 ML IV PRN (21:19)
--- NOTE | 2018-01-10 21:19 | NUR ---
ICU/ASSOCIATE PROFESSOR OF ENGLISH PT'S BLOOD PRESSURE IS 78/50, 500 ML BOLUS WAS GIVEN TO HELP BRING UP BP. WILL MONITOR THIS PT.
--- NOTE | 2018-01-10 21:27 | NUR ---
ICU/CHILD WELFARE SOCIAL WORKER PT'S BP IS LOW IN THE 70'S X 2 CYCLES. CHARGE NURSE MADE AWARE OF THIS. PT STARTED ON LEVO SINGLE CONCENTRATION AT 2MCG. WILL CONTINUE TO MONITOR THIS PT.
--- NOTE | 2018-01-10 21:35 | NUR ---
ICU/MEDIA ANALYTICS MANAGER DR. FONTAINE CAME IN TO SEE PT AND PLACE ORDERS IN COMPUTER. ALSO GAVE VERBAL ORDERS FOR IVF OF NS @150 ML/HR. ALSO CONSULT FOR PULMONARY AND CARDIOLOGY. THEN ASKED MD FOR MED REC. MD SAID WHICH MEDICATION HE WANTED TO CONTINUE. ORDERS WERE PLACED AND NOTED. CHARGE NURSE AWARE OF ORDERS AND IVF ARE STARTED NOW.
[2018-01-10] MEDS: IV NS 0.9% 1,000 ML IV PRN (22:08)
[2018-01-10] MEDS ORDERED: LEVOFLOXACIN 500 MG /D5W 100ML 100 ML IV ONE (22:10)
[2018-01-10] MEDS: LEVOFLOXACIN 500 MG /D5W 100ML 500 MG in PREMIX 1 EA IV SCH (22:20)
--- NOTE | 2018-01-10 22:30 | NUR ---
ICU/CUB REPORTER PT'S BLOOD PRESSURE DECREASED DOWN TO 70'S X 2 CYCLE, NOTIFIED CHARGE NURSE ABOUT THIS WHO THEN INCREASED LEVO TO 4 MCG FROM 2 MCG. WILL CONTINUE TO MONITOR THIS PT AND HIS BP.
[2018-01-10] MEDS ORDERED: ACETAMINOPHEN 325 MG TABLET PO PRN (23:00)
[2018-01-10] MEDS ORDERED: LORAZEPAM INJ 2 MG/ML VIAL IM PRN (23:00)
[2018-01-10] MEDS ORDERED: PIPERACILLIN /TAZOBACTAM 3.375 G VIAL IV ONE (23:09)
[2018-01-10] MEDS: PIPERACILLIN /TAZOBACTAM 3.375 G in IV D5W 50 ML IV SCH (23:32)
[2018-01-11] VITALS (116 sets, daily range): BP systolic 83–129; BP diastolic 51–84
--- NOTE | 2018-01-11 03:10 | NUR ---
ICU/STRUCTURAL TECHNICIAN DURING BATH PT BECAME AGITATED, NOTIFIED CHARGE NURSE ABOUT PT BEING AGITATED AND BUCKING VENT. CHARGE NURSE INCREASED SEDATION DEPRO TO 20MCG FROM 10MCG. WILL CONTINUE TO MONITOR THIS PT.
--- NOTE | 2018-01-11 04:02 | NUR ---
RT Pt orally intubated remains on AC vent settings t/o the night. no resp distress noted. sx prn. ETT secure and patent. Addendum: 01/11/18 at 0404 by ARMAAN BLEVINS RT Amended: Links added.
[2018-01-11 04:30] LABS: BASOPHILS % (AUTO) 0.2 % (0.0-2.0); EOSINOPHILS % (AUTO) 1.2 % (0.0-6.0); HEMATOCRIT 25 % (39-51); HEMOGLOBIN 8.6 g/dL (13.5-17.5); LYMPHOCYTES # (AUTO) 0.5 /CMM (0.8-4.8); LYMPHOCYTES % (AUTO) 3.8 % (20.0-44.0); MEAN CORPUSCULAR HGB CONC 34 g/dl (31.0-36.0); MEAN CORPUSCULAR VOLUME 97 fL (80-96); MONOCYTES # (AUTO) 0.7 /CMM (0.1-1.30); NEUTROPHILS # (AUTO) 11.9 /CMM (1.8-8.9); NEUTROPHILS % (AUTO) 89.8 % (43.0-81.0); PLATELET COUNT (AUTO) 232 /CMM (150-450); RED BLOOD CELL COUNT(AUTO) 2.63 MIL/uL (4.5-6.0); WHITE BLOOD COUNT (AUTO) 13.3 K/uL (4.3-11.0)
[2018-01-11 04:40] LABS: CALCIUM, SERUM 7.3 mg/dL (8.5-10.1); CREATININE 0.7 mg/dL (0.6-1.3); POTASSIUM 3.3 mmol/L (3.5-5.1)
[2018-01-11] MEDS ORDERED: PIPERACILLIN /TAZOBACTAM 3.375 G VIAL IV ONE (05:04)
[2018-01-11] MEDS: PIPERACILLIN /TAZOBACTAM 3.375 G in IV D5W 50 ML IV SCH (05:10)
[2018-01-11] MEDS: PROPOFOL 100 ML IV PRN ×2 (05:16→11:36)
[2018-01-11] MEDS: IV NS 0.9% 1,000 ML IV PRN (05:17)
--- NOTE | 2018-01-11 07:53 | NUR ---
RT PATIENT REC'D ORALLY INTUBATED ON [facility] VENT WITH ORDERED SETTINGS SHIVANI WELL. VENT ALARMS CHECKED + AUDIBLE. CUFF PRESSURE CHECKED [employer]CHO[employer] OF NURSING DIRECTOR. B/S DIM. PATIENT SUCTIONED WITH MOD AMT OF MICHEL THIN SECRETIONS. PATIENT NON VERBAL, NON RESPONSIVE, SEDATED, NO SOB NOTED. AMBU BAG AT HOB Addendum: 01/12/18 at 0753 by ANDRES HOBSON RT Amended: Links added.
[2018-01-11] MEDS ORDERED: DEXTROSE 50%-WATER 50 ML DISP.SYRIN IVP PRN (09:00)
[2018-01-11] MEDS ORDERED: LEVETIRACETAM SOL (5 ML) 100 MG/ML UDC GT SCH (09:00)
--- NOTE | 2018-01-11 10:00 | NUR ---
SEDATION VACATION PROPOFOL TITRATED PER PROTOCOL, SEE IV SPREADSHEET NONLABORED BREATHING NOTED . PATIENT OPENING EYES WHEN INSTRUCTED. MOVING UPPER EXTREMITIES TO LOCALIZED PAIN, SEVERE WEAKNESS NOTED BILATERALLY. COUGH AND GAG REFLEX NOTED PATIENT ORIENTED TO SITUATION, PLACE, AND TIME PROPOFOL TITRATED UP PER PROTOCOL NO PLAN OF WEANING IS NOTED FOR TODAY
--- NOTE | 2018-01-11 10:31 | NUR ---
DR FONTAINE NOTIFIED OF KUB RESULTS PER DR FONTAINE, KEEP PATIENT NPO AND CONVERT KEPPRA TO IV
--- NOTE | 2018-01-11 10:46 | NUR ---
SPOKE TO DARREN FROM PHARMACY AND INFORM HER OF ORDER OF SWITCHING ANTI-SEIZURE MEDS TO IV PER DR FONTAINE
[2018-01-11] MEDS: LamoTRIgine 100 MG TABLET GT SCH ×2 (10:51→20:25)
--- NOTE | 2018-01-11 11:00 | NUR ---
IV FLUIDS PER DR BOLIVAR, SWITCH IV FLUIDS TO D5 NS AT 150 ML/HOUR PER DR BOLIVAR, DO NOT ADD 40 MEQ OF KCL TO EACH BAG VERBAL READBACK DONE
--- NOTE | 2018-01-11 11:01 | NUR ---
IV FLUIDS PER DR BOLIVAR, SWITCH IV FLUIDS TO D5 NS AT 150 ML/HOUR PER DR BOLIVAR, DO NOT ADD 40 MEQ OF KCL TO IV FLUIDS VERBAL READBACK DONE DR BOLIVAR NOTIFIED THAT CURRENT ORDER FOR POTASSIUM REPLACEMENT IS 30 MEQ FOR TODAY'S POTASSIUM LEVEL
[2018-01-11] MEDS: POTASSIUM CL. PREMIX PERIPHER. 50 ML IV SCH ×3 (11:19→16:05)
[2018-01-11] MEDS: IV D5/ 0.9% NACL 1,000 ML IV PRN ×2 (11:28→22:09)
[2018-01-11] MEDS ORDERED: IV D5/ 0.9% NACL 1,000 ML IV PRN (11:30)
[2018-01-11] MEDS ORDERED: VANCOMYCIN 1.5 GM in IV NS 0.9% 500 ML IV ONE (12:00)
[2018-01-11] MEDS: NOREPINEPHRINE 8 MG in IV D5W 500 ML IV PRN ×2 (12:05→23:49)
[2018-01-11] MEDS ORDERED: FEE PK DOSING 1 MIN EA MC ONE (12:36)
[2018-01-11] MEDS ORDERED: VALPROIC ACID 250 MG/5 ML UDC GT SCH (13:00)
[2018-01-11] MEDS: VALPROATE 250 MG in IV D5W 100 ML IV SCH ×2 (13:38→19:36)
[2018-01-11] MEDS: LEVETIRACETAM (500MG) 750 MG in IV NS 0.9% 100 ML IV SCH ×2 (14:42→23:49)
[2018-01-11] MEDS: PIPERACILLIN /TAZOBACTAM 3.375 G in IV D5W 100 ML IV SCH ×2 (14:42→21:46)
[2018-01-11 17:47] LABS: URINE SODIUM, RANDOM 85 mmol/l (40-220)
--- NOTE | 2018-01-11 18:10 | NUR ---
SEDATION PROPOFOL HELD AT THE MOMENT, MONITORING PATIENT'S HR NOTED TO BE LOW 52, SINUS BRADYCARDIA ON TELE MONITOR PATIENT RESTING IN BED. NONLABORED BREAHTHING NOTED WITH RR OF 18, PATIENT OPENING EYES , WITHDRAWING FROM PAIN NO TACHYPNEA NOTED NO SIGNS OF AGITATION SPO2 AT 97% WILL CONTINUE TO MONITOR
[2018-01-11 18:13] LABS: OSMOLALITY,URINE 305 mOS/kg (340-1090)
--- NOTE | 2018-01-11 19:30 | NUR ---
CENTRIFUGE SEPARATOR OPERATOR INITIAL SHIFT NOTES RECEIVED PATIENT IN BED, ASLEEP, EYES CLOSED. PATIENT OFF SEDATION, REMAINS SEDATED/LETHARGIC AT THIS TIME, NOT IN ACUTE DISTRESS, WITHDRAWS FROM PAIN. ORALLY INTUBATED, ETT 7.5/24CM @ LIP, ON MECHANICAL VENT AT PRESCRIBED SETTINGS, TOLERATING WELL, NO RESPIRATORY DISTRESS. GT PATENT AND INTACT, ON LOW INTERMITTENT SUCTION, WITH GREEN GASTRIC OUTPUT. IV SITES PATENT AND INTACT, FLUSHED WITH NS, FREE FROM ANY S/S OF INFILTRATION OR PHLEBITIS. LAST CATHETER PATENT AND INTACT. DRAINING CLEAR YELLOW URINE VIA GRAVITY. CALL LIGHT LEFT WITHIN EASY REACH, BED IN LOWEST AND LOCKED POSITION, HOB ELEVATED. WILL CONTINUE TO CLOSELY MONITOR
--- NOTE | 2018-01-11 19:40 | NUR ---
pt received on vent via ett with charted settings. airway patent. secure via anchorfast. ambu bag at bedside. alarms set and audible, disconnect alarms checked, plugged into red outlet suctioned a moderate amount of thin white secretions. pt receiving no breathing tx at this time. pt hob at 30 degrees. suctioned oral secretion from pts mouth Addendum: 01/11/18 at 1942 by DANIEL MAYERS RT Amended: Links added.
--- NOTE | 2018-01-11 20:25 | NUR ---
DIGITAL STRATEGY SPECIALIST NOTES LAMICTAL HELD, GT TO LIWS. WILL CONTINUE CLOSE MONITORING
[2018-01-11] MEDS: VANCOMYCIN 1 GM in IV NS 0.9% 250 ML IV SCH (20:42)
[2018-01-11] MEDS: LEVOFLOXACIN 500 MG /D5W 100ML 500 MG in PREMIX 1 EA IV SCH (22:02)
[2018-01-11] MEDS ORDERED: NOREPINEPHRINE 4 MG/4 ML AMPUL IV ONE ×2 (22:29→22:30)
[2018-01-12] VITALS (72 sets, daily range): BP systolic 91–131; BP diastolic 51–89
--- NOTE | 2018-01-12 02:00 | NUR ---
AWNING HANGER NOTES PATIENT SEEN AND EXAMINED BY DR FONTAINE. PER DR FONTAINE, SEND SAMPLE FOR URINE SODIUM LEVEL @ 0600. ORDERS READ BACK FOR CLARIFICATION. WILL CARRY OUT ALL NEW ORDERS
--- NOTE | 2018-01-12 03:30 | NUR ---
DESKTOP ENGINEER NOTES PATIENT WITH EPISODE OF DIARRHEA X1, SAMPLE COLLECTED AND DELIVERED TO LAB BY RN
[2018-01-12] MEDS: VALPROATE 250 MG in IV D5W 100 ML IV SCH ×3 (04:11→20:00)
[2018-01-12 04:34] LABS: BASOPHILS # (AUTO) 0.1 /CMM (0.0-0.2); BASOPHILS % (AUTO) 0.5 % (0.0-2.0); EOSINOPHILS % (AUTO) 2.8 % (0.0-6.0); HEMATOCRIT 25 % (39-51); HEMOGLOBIN 8.4 g/dL (13.5-17.5); LYMPHOCYTES # (AUTO) 0.9 /CMM (0.8-4.8); LYMPHOCYTES % (AUTO) 4.9 % (20.0-44.0); MEAN CORPUSCULAR HGB CONC 34 g/dl (31.0-36.0); MEAN CORPUSCULAR VOLUME 97 fL (80-96); MONOCYTES # (AUTO) 0.8 /CMM (0.1-1.30); MONOCYTES % (AUTO) 4.6 % (2.0-12.0); NEUTROPHILS # (AUTO) 15.4 /CMM (1.8-8.9); NEUTROPHILS % (AUTO) 87.2 % (43.0-81.0); PLATELET COUNT (AUTO) 252 /CMM (150-450); RED BLOOD CELL COUNT(AUTO) 2.53 MIL/uL (4.5-6.0); WHITE BLOOD COUNT (AUTO) 17.7 K/uL (4.3-11.0)
[2018-01-12 04:51] LABS: CALCIUM, SERUM 7.3 mg/dL (8.5-10.1); CREATININE 0.8 mg/dL (0.6-1.3); MAGNESIUM 1.8 mg/dL (1.8-2.4); PHOSPHORUS 2.7 mg/dL (2.5-4.9); POTASSIUM 3.1 mmol/L (3.5-5.1)
[2018-01-12] MEDS: PIPERACILLIN /TAZOBACTAM 3.375 G in IV D5W 100 ML IV SCH ×3 (05:36→21:00)
--- NOTE | 2018-01-12 06:50 | NUR ---
MASTER RIGGER CLOSING NOTES PATIENT RESTING IN BED, NO ACUTE DISTRESS. PATIENT REMAINS ORALLY INTUBATED ON MECHANICAL VENT. LEVOPHED TITRATED DOWN TO 2 MCG PATIENT'S BP TOLERATED. WILL ENDORSE THE PATIENT TO THE AM SHIFT NURSE FOR MASON
--- NOTE | 2018-01-12 07:45 | NUR ---
ICU/RN: Pt received, VSS, IV meds infusing well through ANURADHA PICC. Airway cleared of secretions. PEG to LIS. SB on monitor, off sedation, tracking, unable to follow commands. Responds to name and touch. Facial grimacing and gagging on ETT noted. Will resume sedation.
[2018-01-12] MEDS: LamoTRIgine 100 MG TABLET GT SCH ×2 (07:48→21:00)
--- NOTE | 2018-01-12 07:50 | NUR ---
RT PATIENT REC'D ORALLY INTUBATED ON [facility] VENT WITH ORDERED SETTINGS SHIVANI WELL. VENT ALARMS CHECKED + AUDIBLE. CUFF PRESSURE CHECKED FORMING MACHINE TENDER. B/S DIM. PATIENT SUCTIONED WITH MOD AMT OF MICHEL THIN SECRETIONS. PATIENT NON VERBAL, NON RESPONSIVE, SEDATED, NO SOB NOTED. AMBU BAG AT HOB Addendum: 01/12/18 at 0753 by ANDRES HOBSON RT Amended: Links added.
[2018-01-12] MEDS: PROPOFOL 100 ML IV PRN (08:06)
--- NOTE | 2018-01-12 09:00 | NUR ---
ICU/RN: Dr Felipe polo; updated on pt status. Plan for vent weaning tomorrow.
[2018-01-12] MEDS: Z GUARD REMEDY 2 OZ OINT TP SCH (09:01)
[2018-01-12] MEDS: NOREPINEPHRINE 8 MG in IV D5W 500 ML IV PRN (09:02)
[2018-01-12] MEDS: IV D5/ 0.9% NACL 1,000 ML IV PRN (09:17)
[2018-01-12] MEDS ORDERED: POTASSIUM CHLORIDE 20 MEQ POWDER PACKET GT SCH (09:30)
[2018-01-12 09:31] LABS: ABG BASE EXCESS 2.7 mmol/L; ABG OXYGEN SATURATION 97.7 % (92.0-98.5); ABG PH 7.463 (7.350-7.450); ABG PO2 111.2 mmHg (75.0-100.0); AaDO2 130.3 mmHg; COHb 0.3 % (0.5-1.5); MetHb 0.8 % (0.0-1.5); O2Hb 96.6 % (94.0-97.0); SITE, ABG Right Radial
[2018-01-12] MEDS: VANCOMYCIN 1 GM in IV NS 0.9% 250 ML IV SCH ×2 (09:51→21:00)
[2018-01-12] MEDS ORDERED: POTASSIUM CHLORIDE 20 MEQ TAB.PRT.SR PO SCH (10:00)
[2018-01-12] MEDS: POTASSIUM CL. PREMIX PERIPHER. 50 ML IV SCH ×4 (11:03→14:22)
[2018-01-12] MEDS: LEVETIRACETAM (500MG) 750 MG in IV NS 0.9% 100 ML IV SCH (11:04)
--- NOTE | 2018-01-12 12:00 | NUR ---
ICU/RN: Dr Ivy polo; updated on pt status. IVF changed, per MD fonseca to give in addition to 40meq KCL IV replacements. Orders noted and carried out.
--- NOTE | 2018-01-12 14:15 | NUR ---
ICU/RN: Dr Gupta rounds for heme/onc consult. Labs and imaging reviewed, no new orders.
--- NOTE | 2018-01-12 15:30 | NUR ---
ICU/RN: Bed bath, wound care rendered. Pt tolerated well. Turned and repositioned for comfort.
[2018-01-12] MEDS: Potassium Chloride 40 MEQ in IV D5/ 0.9% NACL 1,000 ML IV PRN (15:40)
--- NOTE | 2018-01-12 17:00 | NUR ---
ICU/RN: Dr De La O notified of seizure activity lasting 30 secs; pending neuro consult. Orders for prn ativan noted and carried out.
[2018-01-12] MEDS ORDERED: LORAZEPAM INJ 2 MG/ML VIAL IV PRN (17:30)
--- NOTE | 2018-01-12 19:11 | NUR ---
ICU/RN: Pt in stable condition, no distress noted. Care endorsed to PM RN for MASON.
--- NOTE | 2018-01-12 20:00 | NUR ---
Received patient sedated on Diprivan gtt on full vent support .SR/SB 40's non sustaining.VS stable. Levophed gtt infusing at 2 mcg for BP support.GT to LWIS draining small amount clear pale yellow output.FC to gravity draining with moderate yellow urine.VS stable.no distress noted.Will turned and repositioned Q 2 hrs offloading pressure points.
--- NOTE | 2018-01-12 20:41 | NUR ---
RECEIVED PT INTUBATED 7.5 ETT SECURED AT 24CM AT THE LIP. NO RESP DISTRESS NOTED. PT TOLERATING VENT SETTINGS. SX'D FOR MOD AMT OF THIN WHITE SECRETIONS. VENT ALARMS SET AND AUDIBLE. ETT SECURE, CUFF CRUSHER PLANT OPERATOR. VENT PLUGGED INTO RED OUTLET. WILL CONTINUE TO MONITOR. Addendum: 01/12/18 at 2041 by JEIMY SANTOS RT Amended: Links added.
[2018-01-12] MEDS ORDERED: IV NS 0.9% 250 ML IV ONE (21:30)
[2018-01-12] MEDS: LEVOFLOXACIN 500 MG /D5W 100ML 500 MG in PREMIX 1 EA IV SCH (23:04)
[2018-01-13] VITALS (89 sets, daily range): BP systolic 81–135; BP diastolic 53–120
--- NOTE | 2018-01-13 | NUR ---
Bathed and complete linens changed.BM x 1 soft brown stool moderate amount.Perineal care done.Secretions suctioned and oral care done.
[2018-01-13] MEDS: LEVETIRACETAM (500MG) 750 MG in IV NS 0.9% 100 ML IV SCH ×2 (00:02→11:45)
[2018-01-13] MEDS: Potassium Chloride 40 MEQ in IV D5/ 0.9% NACL 1,000 ML IV PRN ×4 (00:05→19:55)
--- NOTE | 2018-01-13 02:15 | NUR ---
Patient seen by .No new orders received.Patient resting appears comfortable.
[2018-01-13] MEDS: VALPROATE 250 MG in IV D5W 100 ML IV SCH ×3 (04:30→19:53)
[2018-01-13 04:41] LABS: CALCIUM, SERUM 7.4 mg/dL (8.5-10.1); CREATININE 0.6 mg/dL (0.6-1.3); POTASSIUM 3.4 mmol/L (3.5-5.1)
[2018-01-13] MEDS: PROPOFOL 100 ML IV PRN (05:02)
[2018-01-13] MEDS: PIPERACILLIN /TAZOBACTAM 3.375 G in IV D5W 100 ML IV SCH ×3 (05:03→21:07)
--- NOTE | 2018-01-13 06:30 | NUR ---
Patient resting vs remains stable.Levophed gtt titrated down to 1 mcg.All due medications administered. Was turned and repositioned.No significant change noted on patient status.For vent weaning today. Will endorse to day shift RN for continuity of care.
--- NOTE | 2018-01-13 07:42 | NUR ---
INITIAL PRESSURE VESSEL INSPECTOR NOTE RCVD PT INTUBATED ETT 7.5 24 AT LIP, AWAKE ON DIPRIVAN AT 5 MCG/MIN. ABLE TO OPEN EYES TO NAME AND APPEARS TO ACKNOWLEDGE INFORMATION GIVEN. SR ON MONITOR. TOLERATING ORDERED VENT SETTINGS WELL. WEANING PLAN FOR TODAY. BILATERAL SOFT WRIST RESTRAINTS IN PLACE. CIRCULATION CHECKS DONE. G-TUBE TO LOW INTERMITTENT SUCTION WITH CLEAR, THIN SECRETIONS IN PLACE. LAST TO GRAVITY DRAINING CLEAR, PALE, YELLOW URINE. IV SITES C/D/I/PATENT. NO S/O INFILTRATION/PHLEBITIS OBSERVED UPON FLUSHING. IVF INFUSING ORDERED. WILL CONTINUE TO MONITOR PT FOR SAFETY AND COMFORT. BED IN LOW AND LOCKED POSITION. CALL LIGHT WITHIN REACH. DR. FONTAINE CONTACTED REGARDING PT'S CHEST X-RAY STATING THAT ENTERIC TUBE APPEARS TO BE IN MID ESOPHAGUS AREA. WILL F/U.
--- NOTE | 2018-01-13 08:19 | NUR ---
WOUND CARE CONSULT: PT PRESENTS WITH GENERALIZED EDEMA, TIGHT SHINY SKIN AND RASH TO PERINEUM AND GROIN AREAS, PRESENT ON ADMISSION. PT INTUBATED AT THIS TIME. CURRENT SHANI SCORE IS 9. PT INCONTINENT OF LOOSE STOOL. ALL SKIN PROTECTION AND SKIN CARE RECOMMENDATIONS DISCUSSED WITH NURSING STAFF. PT [facility]. WILL SEE PRN. HENRY IN AGREEMENT WITH PLAN OF CARE. Addendum: 01/13/18 at 0820 by ESTHER BAHENA WNDNU Amended: Links added.
[2018-01-13] MEDS: Z GUARD REMEDY 2 OZ OINT TP SCH (08:44)
[2018-01-13] MEDS: VANCOMYCIN 1 GM in IV NS 0.9% 250 ML IV SCH ×2 (08:44→20:27)
[2018-01-13] MEDS: LamoTRIgine 100 MG TABLET GT SCH ×2 (08:45→20:27)
[2018-01-13] MEDS: CLOTRIMAZOLE 1% 15 GM TUBE TP SCH ×2 (08:46→17:09)
--- NOTE | 2018-01-13 09:21 | NUR ---
ACCOUNTING CLERK NOTE DR. FONTAINE REQUESTED HOW FAR TO MOVE ENTERIC TUBE. DR. ARANA RADIOLOGIST CALLED REQUESTING MORE INFO. HE WAS ADVISED THAT PT HAS A G-TUBE, NO NG/OG TUBE, PT IS INTUBATED AND HAS A TEMPERATURE PROBE IN HIS MOUTH. DR. ARANA RECOMMENDED TO PULL THE TEMPERATURE PROBE 4 CM. THIS WAS DONE WITHOUT ANY PROBLEMS. DR. FONTAINE INFORMED OF ACTIONS TAKEN. NO NEW ORDERS RECEIVED.
[2018-01-13 10:43] LABS: ABG BASE EXCESS 4.3 mmol/L; ABG OXYGEN SATURATION 97.1 % (92.0-98.5); ABG PCO2 37.2 mmHg (35.0-45.0); ABG PH 7.492 (7.350-7.450); ABG PO2 95.2 mmHg (75.0-100.0); AaDO2 147.2 mmHg; COHb 0.2 % (0.5-1.5); MetHb 0.7 % (0.0-1.5); O2Hb 96.2 % (94.0-97.0); PEEP,BG 5 cm H2O; SITE, ABG Left Radial; VENT MODE, BG SIMV PS 12; VT, ABG 450 mL
[2018-01-13] MEDS: POTASSIUM CL. PREMIX PERIPHER. 50 ML IV SCH ×2 (11:46→13:47)
--- NOTE | 2018-01-13 17:43 | NUR ---
pt placed on cool aerosol per Dr. Wang. order. zero distress noted
--- NOTE | 2018-01-13 18:02 | NUR ---
BLANCHING MACHINE OPERATOR NOTE PT REMAINS STABLE ON COOL AEROSOL AT THIS TIME TOLERATING WELL. VITAL SIGNS STABLE, OFF PRESSORS AND SEDATION SINCE THIS AM. G-TUBE TO LIS, IV SITES C/D/I/PATENT. NO S/O INFILTRATION/PHLEBITIS OBSERVED IVF INFUSING ORDERED. LAST TO GRAVITY DRAINING PALE, YELLOW URINE. PT'S CARE WILL BE ENDORSED TO REHAB AIDE RN FOR CONTINUITY OF CARE. BED IN LOW AND LOCKED POSITION. CALL LIGHT WITHIN REACH.
--- NOTE | 2018-01-13 19:30 | NUR ---
SYSTEMS DESIGNER INITIAL SHIFT NOTES RECEIVED PATIENT IN BED, AWAKE, EYES OPEN. PATIENT SOMETIMES ABLE TO SQUEEZE HANDS WHEN ASKED TO, OCCASIONALLY TRACKS. PATIENT REMAINS ORALLY INTUBATED, ETT 7.5, 24CM @ LIP LINE, NOW ON COOL AEROSOL WITH FIO2 @ 35%, NO DISTRESS NOTED AT THIS TIME. BEDSIDE REHABILITATION TECH READ SINUS RHYTHM 60s. GT PATENT AND INTACT, AUSCULTATED TO CONFIRM PROPER PLACEMENT, CONTINUES ON LOW INTERMITTENT SUCTION, MINIMAL CLEAR OUTPUT NOTED. LAST CATHETER PATENT AND INTACT, DRAINING CLEAR, PALE YELLOW URINE VIA GRAVITY.HOB KEPT ELEVATED. WILL CONTINUE TO CLOSELY MONITOR
[2018-01-13] MEDS: LEVOFLOXACIN 500 MG /D5W 100ML 500 MG in PREMIX 1 EA IV SCH (22:00)
[2018-01-14] VITALS (43 sets, daily range): BP systolic 92–130; BP diastolic 53–84
[2018-01-14] MEDS: LEVETIRACETAM (500MG) 750 MG in IV NS 0.9% 100 ML IV SCH ×3 (00:06→23:53)
--- NOTE | 2018-01-14 02:26 | NUR ---
DIRECTOR GIFT NOTES PATIENT SEEN AND EXAMINED BY DR FONTAINE. SR FONTAINE NOTIFIED REGARDING URINE OUTPUT, AND GT OUTPUT. PER DR FONTAINE, CONTINUE GT TO LOW INTERMITTENT SUCTION, OBTAIN REPEAT KUB, AND CHECK URINE OSMOLALITY. ALSO MD WITH REQUEST TO BE NOTIFIED AT THE END OF THE SHIFT REGARDING TOTAL URINE OUTPUT. ALL ORDERS READ BACK FOR CLARIFICATION. WILL CONTINUE TO CLOSELY MONITOR
[2018-01-14] MEDS: VALPROATE 250 MG in IV D5W 100 ML IV SCH ×3 (03:50→20:08)
[2018-01-14 04:39] LABS: BASOPHILS # (AUTO) 0.1 /CMM (0.0-0.2); BASOPHILS % (AUTO) 0.6 % (0.0-2.0); EOSINOPHILS % (AUTO) 10.2 % (0.0-6.0); HEMATOCRIT 24 % (39-51); LYMPHOCYTES # (AUTO) 0.8 /CMM (0.8-4.8); LYMPHOCYTES % (AUTO) 8.7 % (20.0-44.0); MEAN CORPUSCULAR HGB CONC 34 g/dl (31.0-36.0); MEAN CORPUSCULAR VOLUME 97 fL (80-96); MONOCYTES # (AUTO) 0.7 /CMM (0.1-1.30); NEUTROPHILS % (AUTO) 73.5 % (43.0-81.0); PLATELET COUNT (AUTO) 221 /CMM (150-450); RED BLOOD CELL COUNT(AUTO) 2.43 MIL/uL (4.5-6.0); WHITE BLOOD COUNT (AUTO) 9.5 K/uL (4.3-11.0)
[2018-01-14 04:56] LABS: ALBUMIN 1.6 g/dL (3.4-5.0); BILIRUBIN,TOTAL 0.3 mg/dL (0.2-1.0); CALCIUM, SERUM 7.5 mg/dL (8.5-10.1); CREATININE 0.7 mg/dL (0.6-1.3); MAGNESIUM 1.6 mg/dL (1.8-2.4); PHOSPHORUS 3.1 mg/dL (2.5-4.9); POTASSIUM 3.8 mmol/L (3.5-5.1); TOTAL PROTEIN, SERUM 5.4 g/dL (6.4-8.2)
[2018-01-14] MEDS: PIPERACILLIN /TAZOBACTAM 3.375 G in IV D5W 100 ML IV SCH ×3 (05:14→22:07)
--- NOTE | 2018-01-14 07:00 | NUR ---
CLIENT SERVICE AND CONSULTING MANAGER CLOSING NOTES PATIENT RESTING IN BED, APPEARS COMFORTABLE. TOTAL URINE OUTPUT THROUGHOUT SHIFT 2150ML. MESSAGE SENT TO DR FONTAINE, AWAITING REPLY BACK. WILL ENDORSE THE PATIENT TO THE AM SHIFT NURSE FOR CONTINUITY OF CARE
[2018-01-14 08:37] LABS: ABG BASE EXCESS 2.5 mmol/L; ABG OXYGEN SATURATION 96.5 % (92.0-98.5); ABG PCO2 34.8 mmHg (35.0-45.0); ABG PH 7.488 (7.350-7.450); ABG PO2 97.1 mmHg (75.0-100.0); COHb 0.1 % (0.5-1.5); MetHb 1.5 % (0.0-1.5); SITE, ABG Left Radial; VENT MODE, BG 35% COOL AEROSOL
[2018-01-14] MEDS: LamoTRIgine 100 MG TABLET GT SCH ×2 (09:18→20:29)
[2018-01-14] MEDS: CLOTRIMAZOLE 1% 15 GM TUBE TP SCH ×2 (09:19→17:04)
[2018-01-14] MEDS: Z GUARD REMEDY 2 OZ OINT TP SCH (09:19)
[2018-01-14] MEDS: VANCOMYCIN 1 GM in IV NS 0.9% 250 ML IV SCH ×2 (09:20→21:17)
--- NOTE | 2018-01-14 10:04 | NUR ---
ELIEZER was informed by ICU CRSelma Alamo that Dr. Wang would like to know if pt. has any family since pt. will required consent for trach placement. ELIEZER contacted [facility] where pt. is from and spoke to Collette in Medical Records who informed SW that pt. does not have family and it was the facility Interdisciplinary team that was making decision on pt' s plan of care. ELIEZER contacted GUERITA Alamo and updated her with the aforementioned information.
[2018-01-14] MEDS: Magnesium 1GM/D5W 100ML PREMIX 100 ML IV SCH ×2 (10:07→11:16)
[2018-01-14] MEDS ORDERED: DIATR MEGLU/DIATRIZOATE SODIUM 30 ML BOTTLE (GASTROGRAPHIN) ONE (10:08)
[2018-01-14] MEDS: Potassium Chloride 40 MEQ in IV D5/ 0.9% NACL 1,000 ML IV PRN (12:39)
--- NOTE | 2018-01-14 15:00 | NUR ---
PT BACK FROM CT. NEG. FOR SM CLAUDINE OBSTRUCTION. ONE LARGE DIARRHEA NOTED.
--- NOTE | 2018-01-14 16:31 | NUR ---
RT NOTE: PATIENT RECEIVED ORALLY INTUBATED WITH 7.5 ETT SECURED AT 24CM MID LIP LINE ON 35% COOL AEROSOL. TOLORATING WELL. SUCTIONED AND LAVAGED SMALL-MODERATE THICK MICHEL/PINK TINGED SECRETIONS. AMBU BAG AT [facility].
--- NOTE | 2018-01-14 18:00 | NUR ---
PT HAD A SECOND EPISODE OF DIARRHEA, DR FONTAINE NOTIFIED.
--- NOTE | 2018-01-14 19:29 | NUR ---
PATIENT RECEIVED ORALLY INTUBATED WITH 7.5 ETT SECURED AT 24C @ THE LIP LINE ON 35% COOL AEROSOL. TOLERATING WELL. SUCTIONED AND LAVAGED SMALL AMOUNT OF THIN PALE YELLOW SECRETIONS. AMBU BAG AT [facility].
--- NOTE | 2018-01-14 20:00 | NUR ---
ICU/RN NOTES: RECEIVED PT. IN BED W /HOB ELEVATED W/ EYES CLOSED. W/ ETT AT 7.5 AT LIP/24 CM AND W/ COOL AEROSOL WITH 35% FIO2. NO S/S OF ANY RESPIRATORY DISTRESS. NO FACIAL GRIMACES OR MOANING NOTED. PT. BUE/BLE W/ TRACE EDEMA NOTED. W/ GT PATENT AND INTACT BUT CLAMPED RIGHT NOW. F/C PATENT AND INTACT DRAINING VIA GRAVITY. HAS ANURADHA PICC W/ D5NS W/ 40 MEQ KCL @ 75 CC/HR. ON TELE MONITOR W/ SR 72. WILL CONTINUE TO MONITOR.
--- NOTE | 2018-01-14 20:35 | NUR ---
ICU/RN NOTES: TEXTED DR. FONTAINE TO CLARIFY IF OK TO GIVE MEDS VIA GT. PER DR. PENALOZA.
--- NOTE | 2018-01-14 21:00 | NUR ---
ICU/RN NOTES: PT. OPENED EYES. TRACK EYES WHEN CALLED HIS NAME. WILL CONTINUE TO MONITOR.
--- NOTE | 2018-01-14 22:00 | NUR ---
ICU/RN NOTES: IV ATB GIVEN PER ORDER.
[2018-01-14] MEDS: LEVOFLOXACIN 500 MG /D5W 100ML 500 MG in PREMIX 1 EA IV SCH (22:27)
--- NOTE | 2018-01-14 23:00 | NUR ---
ICU/RN NOTES: PT. HAD EPISODE OF DIARRHEA. SEND TO LAB. CHARGE NURSE SUYAPA DAMON
[2018-01-15] VITALS (45 sets, daily range): BP systolic 81–140; BP diastolic 50–89
--- NOTE | 2018-01-15 | NUR ---
ICU/RN NOTES: TEMP OF 99.1. TYLENOL GIVEN.
[2018-01-15] MEDS: Potassium Chloride 40 MEQ in IV D5/ 0.9% NACL 1,000 ML IV PRN ×2 (02:39→12:09)
--- NOTE | 2018-01-15 02:45 | NUR ---
ICU/RN NOTES: DR. FONTAINE CAME W/ NEW ORDERS NOTED AND CARRIED OUT.
[2018-01-15] MEDS ORDERED: METRONIDAZOLE 500MG/ NS 100ML 100 ML IV ONE (03:20)
--- NOTE | 2018-01-15 03:30 | NUR ---
ICU/RN NOTES: GAVE THE FIRST DOSE OF FLAGYL 500 MG IV.
[2018-01-15] MEDS: VALPROATE 250 MG in IV D5W 100 ML IV SCH ×3 (04:16→19:56)
[2018-01-15] MEDS: METRONIDAZOLE 500MG/ NS 100ML 500 MG in PREMIX 1 EA IV SCH ×3 (04:16→19:57)
[2018-01-15 04:33] LABS: BASOPHILS % (AUTO) 0.3 % (0.0-2.0); EOSINOPHILS % (AUTO) 10.4 % (0.0-6.0); HEMATOCRIT 23 % (39-51); HEMOGLOBIN 7.8 g/dL (13.5-17.5); LYMPHOCYTES # (AUTO) 0.6 /CMM (0.8-4.8); LYMPHOCYTES % (AUTO) 7.3 % (20.0-44.0); MEAN CORPUSCULAR HGB CONC 34 g/dl (31.0-36.0); MEAN CORPUSCULAR VOLUME 97 fL (80-96); MONOCYTES # (AUTO) 0.8 /CMM (0.1-1.30); MONOCYTES % (AUTO) 8.5 % (2.0-12.0); NEUTROPHILS # (AUTO) 6.5 /CMM (1.8-8.9); NEUTROPHILS % (AUTO) 73.5 % (43.0-81.0); PLATELET COUNT (AUTO) 207 /CMM (150-450); RED BLOOD CELL COUNT(AUTO) 2.36 MIL/uL (4.5-6.0); WHITE BLOOD COUNT (AUTO) 8.8 K/uL (4.3-11.0)
[2018-01-15 04:53] LABS: CALCIUM, SERUM 7.6 mg/dL (8.5-10.1); CREATININE 0.7 mg/dL (0.6-1.3); MAGNESIUM 1.7 mg/dL (1.8-2.4); PHOSPHORUS 3.6 mg/dL (2.5-4.9); POTASSIUM 3.8 mmol/L (3.5-5.1)
--- NOTE | 2018-01-15 05:23 | NUR ---
ICU/RN NOTES: TEMP OF 98.9. PT. IS RESTING COMFORTABLE.
[2018-01-15] MEDS: CLOTRIMAZOLE 1% 15 GM TUBE TP SCH ×2 (09:13→18:02)
[2018-01-15] MEDS: Z GUARD REMEDY 2 OZ OINT TP SCH (09:13)
--- NOTE | 2018-01-15 09:48 | NUR ---
PER DR GARNER, RETRACT ET TUBE BY 2.5 CM
[2018-01-15] MEDS: LamoTRIgine 100 MG TABLET GT SCH ×2 (09:59→20:25)
--- NOTE | 2018-01-15 10:00 | NUR ---
RT NOTE: PATIENT RECEIVED ORALLY INTUBATED WITH 7.5 ETT SECURED AT 24CM AND RETRACTED TO 22CM MID LIP LINE. PATIENT REMAINS ON 35% COOL AEROSOL TOLERATING WELL. AMBU BAG AT [facility].
[2018-01-15] MEDS: LEVETIRACETAM (500MG) 750 MG in IV NS 0.9% 100 ML IV SCH ×2 (11:03→23:46)
[2018-01-15] MEDS: Magnesium 1GM/D5W 100ML PREMIX 100 ML IV SCH ×2 (12:03→12:54)
--- NOTE | 2018-01-15 18:50 | NUR ---
RN CLOSING NOTES PATIENT RESTING IN BED. NONLABORED BREATHING NOTED ON COOL AEROSOL ON 8L. ET-TUBE AT 22 AT THE LIP PICCLINE ON RIGHT UPPER ARM PATENT AND INTACT. IV LINES PATENT AND INTACT . PATIENT SINUS RHYTHM ON TELE MONITOR IV FLUIDS RUNNING PER ORDERS LAST CATHETER DRAINING YELLOW CLEAR URINE SEIZURE PRECAUTIONS IMPLEMENTED. WILL ENDORSE TO NEXT RN
--- NOTE | 2018-01-15 19:30 | NUR ---
SLEEPING CAR SERVICE ATTENDANT NOTE RECEIVED PT INTUBATED WITH OPEN EYES. A/O TO NAME. ETT 7.5 AND 22 @ THE LIP. ON 8L OF O2 VIA T-PIECE AND COOL AEROSOL AND TOLERATING WELL. HOB ELEVATED AND ON ASPIRATION PRECAUTIONS. GT CLAMPED AND NPO EXCEPT MEDS. IV ANURADHA PICC CLEAN, DRY WITH FLUIDS INFUSING. LAST CATHETER IN PLACE AND DRAINING CLEAR YELLOW URINE BY GRAVITY. WILL CONTINUE TO MONITOR.
[2018-01-15] MEDS: LEVOFLOXACIN 500 MG /D5W 100ML 500 MG in PREMIX 1 EA IV SCH (22:27)
[2018-01-16] VITALS (49 sets, daily range): BP systolic 73–149; BP diastolic 52–90
[2018-01-16] MEDS: VALPROATE 250 MG in IV D5W 100 ML IV SCH ×3 (03:37→20:31)
[2018-01-16] MEDS: METRONIDAZOLE 500MG/ NS 100ML 500 MG in PREMIX 1 EA IV SCH ×3 (03:37→20:30)
[2018-01-16 05:09] LABS: BASOPHILS % (AUTO) 0.6 % (0.0-2.0); EOSINOPHILS % (AUTO) 9.7 % (0.0-6.0); HEMATOCRIT 25 % (39-51); HEMOGLOBIN 8.5 g/dL (13.5-17.5); LYMPHOCYTES # (AUTO) 0.9 /CMM (0.8-4.8); LYMPHOCYTES % (AUTO) 10.7 % (20.0-44.0); MEAN CORPUSCULAR HGB CONC 34 g/dl (31.0-36.0); MEAN CORPUSCULAR VOLUME 96 fL (80-96); MONOCYTES # (AUTO) 0.7 /CMM (0.1-1.30); MONOCYTES % (AUTO) 8.4 % (2.0-12.0); NEUTROPHILS # (AUTO) 5.9 /CMM (1.8-8.9); NEUTROPHILS % (AUTO) 70.6 % (43.0-81.0); PLATELET COUNT (AUTO) 233 /CMM (150-450); RED BLOOD CELL COUNT(AUTO) 2.62 MIL/uL (4.5-6.0); WHITE BLOOD COUNT (AUTO) 8.3 K/uL (4.3-11.0)
[2018-01-16 05:18] LABS: CALCIUM, SERUM 8.2 mg/dL (8.5-10.1); CREATININE 0.7 mg/dL (0.6-1.3)
[2018-01-16] MEDS: JEVITY 1.2 CAL 1,000 ML BOTTLE GT PRN (06:05)
[2018-01-16] MEDS: Potassium Chloride 40 MEQ in IV D5/ 0.9% NACL 1,000 ML IV PRN (06:28)
--- NOTE | 2018-01-16 07:20 | NUR ---
NEUROPHYSIOLOGIST NOTE PT REMAINED STABLE DURING SHIFT. NO ACUTE DISTRESS NOTED. ETT IN PLACE AND SATURATING WELL. SUCTIONED NEEDED. REPOSITIONED Q2H. KEPT CLEAN AND DRY. DR FONTAINE AT BEDSIDE WITH ORDERS TO RESTART FEEDING JEVITY @10ML/HR AND INCREASE BY 10 ML EVERY 4H. CONSENT SIGNED BY DR FONTAINE FOR TRACHEOSTOMY PLACEMENT. ALL NEEDS ATTENDED TO PROMPTLY. WILL ENDORSE TO NEXT SHIFT FOR CONTINUITY OF CARE.
[2018-01-16] MEDS: LamoTRIgine 100 MG TABLET GT SCH ×2 (08:31→21:39)
[2018-01-16] MEDS: Z GUARD REMEDY 2 OZ OINT TP PRN (08:34)
[2018-01-16] MEDS: CLOTRIMAZOLE 1% 15 GM TUBE TP SCH ×2 (08:34→16:42)
[2018-01-16] MEDS: Z GUARD REMEDY 2 OZ OINT TP SCH (08:36)
--- NOTE | 2018-01-16 08:54 | NUR ---
received pt from [facility] shift lead, alert, follows simple commands, SR, on 8L cool aerosol at 35% fio2, sat well, lungs partially congested, some pitting/ non pitting edema all extremities, GT clamped due to possible tracheostomy, f/c good output, v/s stable, no pain, pt turned and repositioned.
[2018-01-16 09:38] LABS: ABG BASE EXCESS 8.6 mmol/L; ABG OXYGEN SATURATION 94.5 % (92.0-98.5); ABG PCO2 41.1 mmHg (35.0-45.0); ABG PH 7.513 (7.350-7.450); ABG PO2 69.4 mmHg (75.0-100.0); AaDO2 132.4 mmHg; COHb 0.3 % (0.5-1.5); MetHb 0.2 % (0.0-1.5); SITE, ABG Right Radial; VENT MODE, BG CA 35%
[2018-01-16] MEDS: LEVETIRACETAM (500MG) 750 MG in IV NS 0.9% 100 ML IV SCH ×2 (12:56→23:33)
--- NOTE | 2018-01-16 15:19 | NUR ---
pt transferred to julissa watson/enrike stable, no pain. Addendum: 01/16/18 at 1521 by SILVESTRE FREEMAN RN wrong documentation, wrong patient.
--- NOTE | 2018-01-16 16:18 | NUR ---
pt is resting in the bed, alert, follows simple commands at times, on cool aerosol, sat well, awaiting from tracheostomy, v/s stable, no pain, pt turned and repositioned q2hrs.
[2018-01-16] MEDS ORDERED: ANESTHESIA TRAY IN PYXIS 1 EA TRAY MC ONE (16:19)
[2018-01-16] MEDS ORDERED: LIDOCAINE 1%-EPI 1:100,000 20 ML VIAL ONE (16:19)
[2018-01-16] MEDS ORDERED: FENTANYL PF 100MCG/2ML AMPUL ONE (16:27)
[2018-01-16] MEDS ORDERED: FAMOTIDINE/PF INJ 20 MG/2 ML VIAL IV ONE (16:28)
[2018-01-16] MEDS ORDERED: METOCLOPRAMIDE HCL 10 MG/2 ML VIAL ONE (16:28)
[2018-01-16] MEDS ORDERED: ROCURONIUM BROMIDE 50 MG/5 ML ONE (16:28)
--- NOTE | 2018-01-16 17:42 | NUR ---
pt back from tracheostomy, still on the anesthesia, SR, back on vent AC mode, feeding and fluids back on, v/s stable, no pain, recovery nurse at the bedside.
--- NOTE | 2018-01-16 18:03 | NUR ---
RT NOTE PT REMAINS MECHANICALLY VENTILATED VIA SHILEY 8 CUFFED TRACHEOSTOMY TUBE. CUFF INFLATED. TRACH TUBE MIDLINE AND SECURE. PT PLACED ON PREVIOUSLY ORDERED AC SETTINGS AC 10 450 40% +0. ALARMS SET PER PROTOCOL AND AUDIBLE. VENT PLUGGED IN TO RED OUTLET. AMBU BAG AT BED SIDE. NO DISTRESS NOTED AT MOMENT. Addendum: 01/16/18 at 1805 by HERBERT WANG RT Amended: Links added.
--- NOTE | 2018-01-16 19:41 | NUR ---
PT RCVD TRACH SHILEY 8 ON THE VENT WITH NOTED SETTINGS. PT IS AWAKE AND ALERT , RESPONDS TO STIMULI. SUCTIONED SMALL AMOUNT OF WHITE THICK SECRETIONS WITH PINK TINGED . TRACH PATENT AND SECURED. VENT PLUGGED INTO RED OUTLET, VENT ALARMS SET AND AUDIBLE. AMBU BAG AT BEDSIDE. WILL CONTINUE TO MONITOR.
--- NOTE | 2018-01-16 19:45 | NUR ---
ICU/HEAD OF TRANSPORT LOGISTICS RECEIVED REPORT FROM DAY NURSE. SEE NURSING FLOWSHEET FOR ASSESSMENT AND SKIN ISSUES THAT ARE ADDRESSED. PT WAS TURNED AND REPOSITIONED FOR COMFORT AND CARE. WILL CONTINUE TO MONITOR THIS PT.
[2018-01-16] MEDS: LEVOFLOXACIN 500 MG /D5W 100ML 500 MG in PREMIX 1 EA IV SCH (23:25)
[2018-01-17] VITALS (52 sets, daily range): BP systolic 82–127; BP diastolic 50–70
--- NOTE | 2018-01-17 02:56 | NUR ---
ICU/HEAD OF MAINTENANCE DR FONTAINE CAME IN AND ORDERED THAT THE IVF BE STOPPED. CHANGE IV ANTIBOTICS OVER TO PO VIA G/TUBE, FLAGYL AND LEVAQUIN. THEN ORDERED FOR PT TO GO BACK TO [facility] ON FRIDAY IF BED IS AVAILABLE. ALSO THERE IS AM LABS CBC AND BMP FOR THIS PT.
--- NOTE | 2018-01-17 02:59 | NUR ---
ICU/UNDERCOVER AGENT ALL NEW ORDERS WERE NOTED AND CARRIED OUT. CHARGE NURSE AWARE OF THESE NEW CHANGES.
[2018-01-17] MEDS: LEVOFLOXACIN (500MG) 500 MG TABLET PO SCH (03:00)
--- NOTE | 2018-01-17 03:03 | NUR ---
ICU/NOODLE MAKER PO LEVAQUIN IS TOO CLOSE TO THE TIME IV WAS GIVEN. IV GIVEN AT 2300 AND IT'S NOW 0300. WILL START ON NEW CYCLE AFTER THIS.
[2018-01-17] MEDS: VALPROATE 250 MG in IV D5W 100 ML IV SCH ×3 (03:46→20:09)
--- NOTE | 2018-01-17 04:00 | NUR ---
ICU/REHABILITATION TECH INCREASED G/TUBE FEEDING TO 30ML FROM 20 WITH GOAL TO 60ML/HR. WILL CONTINUE TO MONITOR THIS PT AND HIS RESIDUALS
--- NOTE | 2018-01-17 04:20 | NUR ---
ICU/MECHATRONICS ENGINEER RT DECREASED THE FIO2 FROM 50 TO 40%. WILL CONTINUE TO MONITOR THIS PT AND THE SATURATION.
[2018-01-17] MEDS: METRONIDAZOLE 500 MG TABLET PO SCH ×3 (05:13→20:28)
--- NOTE | 2018-01-17 05:20 | NUR ---
ICU/SELF PROPELLED DREDGE OPERATOR PT'S BLOOD PRESSURE CYCLED THROUGH THE LAST 30 MINUTES WAS 80'S, NOTIFIED CHARGE NURSE WHO THEN MADE LEVO TO SUPPORT THE LOW BP. WILL CONTINUE TO MONITOR THIS PT NA HI9S BLOOD PRESSURE.
[2018-01-17 05:28] LABS: CALCIUM, SERUM 7.4 mg/dL (8.5-10.1); CREATININE 0.9 mg/dL (0.6-1.3); POTASSIUM 3.9 mmol/L (3.5-5.1)
[2018-01-17] MEDS: JEVITY 1.2 CAL 1,000 ML BOTTLE GT PRN (05:33)
[2018-01-17] MEDS ORDERED: NOREPINEPHRINE 4 MG/4 ML AMPUL IV ONE (05:39)
[2018-01-17] MEDS: NOREPINEPHRINE 8 MG in IV D5W 500 ML IV PRN ×2 (05:46→18:28)
--- NOTE | 2018-01-17 08:16 | NUR ---
received pt from night custodian, alert, follows simple commands at times, SR, on levo at 2mcg, on the vent, s/p trach, no bleeding noted, lungs congested, some edema, GT to feeding tolerates well, f/c OK output, v/s stable, no pain, pt turned and repositioned.
[2018-01-17] MEDS: LamoTRIgine 100 MG TABLET GT SCH ×2 (08:36→20:28)
[2018-01-17] MEDS: CLOTRIMAZOLE 1% 15 GM TUBE TP SCH ×2 (08:37→16:23)
[2018-01-17 08:38] LABS: ABG BASE EXCESS 8.2 mmol/L; ABG OXYGEN SATURATION 96.6 % (92.0-98.5); ABG PCO2 43.4 mmHg (35.0-45.0); ABG PO2 96.8 mmHg (75.0-100.0); AaDO2 138.5 mmHg; COHb 0.3 % (0.5-1.5); MetHb 1.5 % (0.0-1.5); O2Hb 94.9 % (94.0-97.0); PEEP,BG 0 cm H2O; SITE, ABG Right Radial; VENT MODE, BG AC 10 450 40%
[2018-01-17] MEDS: Z GUARD REMEDY 2 OZ OINT TP SCH (08:38)
[2018-01-17] MEDS: LEVETIRACETAM (500MG) 750 MG in IV NS 0.9% 100 ML IV SCH ×2 (11:00→23:31)
--- NOTE | 2018-01-17 12:21 | NUR ---
pt is resting in the bed, off of levo since 1000, v/s stable, no pain, pt turned and repositioned q2hrs.
--- NOTE | 2018-01-17 16:22 | NUR ---
pt is resting in the bed, SR, tolerates feeding, v/s stable, no pain, pt cleaned, changed and repositioned q2hrs.
--- NOTE | 2018-01-17 19:45 | NUR ---
ICU/PHARMACIST TECHNICIAN RECEIVED REPORT FROM DAY NURSE. SEE NURSING FLOWSHEET FOR ASSESSMENT AND SKIN ISSUES THAT ARE ADDRESSED. PT WAS TURNED AND REPOSITIONED FOR COMFORT AND CARE. WILL CONTINUE TO MONITOR THIS PT.
--- NOTE | 2018-01-17 20:30 | NUR ---
ICU/MANAGER COMMUNITY PT IS TOLERATING G/TUBE FEEDING AT 30ML, GOAL IS 65. INCREASED FEEDING TO 40ML WITH NO RESIDUALS SEEN. WILL CONTINUE TO MONITOR PT AND FEEDING RESIDUALS.
--- NOTE | 2018-01-17 23:10 | NUR ---
ICU/LEAD JAVA J2EE DEVELOPER PT TOLERATING TUBE FEEDING, INCREASED FEEDING TO 50ML. PT TURNED AND REPOSITIONED FOR COMFORT AND CARE.
[2018-01-18] VITALS (81 sets, daily range): BP systolic 85–127; BP diastolic 51–79
--- NOTE | 2018-01-18 02:30 | NUR ---
ICU/SUPERVISOR MECHANIC BOILERMAKING DR. FONTAINE CAME IN TO SEE THE PT, NEW ORDERS WERE NOTED. DISCHARGE PLANNING ON HOLD WHILE PT IS CURRENTLY ON LEVO.
[2018-01-18] MEDS: VALPROATE 250 MG in IV D5W 100 ML IV SCH (02:54)
[2018-01-18] MEDS: LEVOFLOXACIN (500MG) 500 MG TABLET PO SCH (02:55)
--- NOTE | 2018-01-18 03:55 | NUR ---
ICU/RECORDS TECH PT WAS GIVEN AM CARE ALONG WITH ORAL CARE. PT TOLERATED THIS WELL, REMAINS ON CURRENT VENT SETTINGS, WITH SATURATION AT 96-98%. PT WAS TURNED AND REPOSITIONED FOR COMFORT AND CARE. NO ACUTE DISTRESS SEEN AT THIS TIME. PT APPEARS COMFORTABLE.
[2018-01-18] MEDS: METRONIDAZOLE 500 MG TABLET PO SCH ×3 (05:01→20:11)
[2018-01-18 05:05] LABS: CALCIUM, SERUM 7.7 mg/dL (8.5-10.1); CREATININE 0.6 mg/dL (0.6-1.3); POTASSIUM 3.6 mmol/L (3.5-5.1)
--- NOTE | 2018-01-18 05:13 | NUR ---
ICU/FENCE ERECTOR AM LABS WERE DRAWN ALONG WITH CHEST XRAY, AWAIT FOR ANY ABNORMAL RESULTS.
[2018-01-18 05:41] LABS: BASOPHILS # (AUTO) 0.1 /CMM (0.0-0.2); BASOPHILS % (AUTO) 0.8 % (0.0-2.0); EOSINOPHILS % (AUTO) 9.4 % (0.0-6.0); HEMATOCRIT 26 % (39-51); HEMOGLOBIN 8.6 g/dL (13.5-17.5); LYMPHOCYTES # (AUTO) 1.1 /CMM (0.8-4.8); LYMPHOCYTES % (AUTO) 14.1 % (20.0-44.0); MEAN CORPUSCULAR HGB CONC 33 g/dl (31.0-36.0); MEAN CORPUSCULAR VOLUME 97 fL (80-96); MONOCYTES # (AUTO) 0.8 /CMM (0.1-1.30); MONOCYTES % (AUTO) 9.7 % (2.0-12.0); NEUTROPHILS # (AUTO) 5.2 /CMM (1.8-8.9); PLATELET COUNT (AUTO) 268 /CMM (150-450); RED BLOOD CELL COUNT(AUTO) 2.65 MIL/uL (4.5-6.0); WHITE BLOOD COUNT (AUTO) 7.9 K/uL (4.3-11.0)
--- NOTE | 2018-01-18 07:10 | NUR ---
RN INITIAL NOTES: Rec'd pt awake on bed, not in any distress, smiles. On MV via new trach (w/ sutures, minimal bleeding noted on the site), sating 98%. On telemonitor, SR. Has ANURADHA PICC line w/ Levo Drip x 2 mcg/hr infusing well. Has RFA G20, SL. Has GT on cont GTF Jevity 1.2 x 50 cc/hr (goal of 65), no residual noted upon checking. Has FC draining to BSB. Provided comfort & safety measures. Bed kept low & in locked pos. Call light placed w/in reach. Will cont to monitor & attend pt needs.
[2018-01-18] MEDS: Z GUARD REMEDY 2 OZ OINT TP SCH (08:23)
[2018-01-18] MEDS: CLOTRIMAZOLE 1% 15 GM TUBE TP SCH ×2 (08:23→17:04)
[2018-01-18] MEDS: LEVETIRACETAM SOL (5 ML) 100 MG/ML UDC GT SCH ×2 (08:23→20:11)
[2018-01-18] MEDS: LamoTRIgine 100 MG TABLET GT SCH ×2 (08:23→20:11)
--- NOTE | 2018-01-18 10:00 | NUR ---
RT placed pt on C/A Fio2 35%, monitor for any respiratory distress. ABG done & reviewed by Dr. Garsia w/ NNO.
[2018-01-18 10:36] LABS: ABG BASE EXCESS 8.9 mmol/L; ABG OXYGEN SATURATION 95.4 % (92.0-98.5); ABG PCO2 43.5 mmHg (35.0-45.0); ABG PH 7.498 (7.350-7.450); ABG PO2 77.8 mmHg (75.0-100.0); AaDO2 121.2 mmHg; COHb 0.3 % (0.5-1.5); MetHb 0.7 % (0.0-1.5); O2Hb 94.4 % (94.0-97.0); SITE, ABG Right Radial; VENT MODE, BG C/A
[2018-01-18] MEDS: JEVITY 1.2 CAL 1,000 ML BOTTLE GT PRN (11:02)
--- NOTE | 2018-01-18 11:10 | NUR ---
pt p-laced on cool aerosol per md order. Abg done Dr Gillette aware. small pale yellow sputum. zero resp. distress noted at this time. Addendum: 01/18/18 at 1111 by CODI PEDROZA RT Amended: Links added.
[2018-01-18] MEDS: VALPROIC ACID 250 MG/5 ML UDC GT SCH ×2 (12:56→19:50)
[2018-01-18] MEDS: NOREPINEPHRINE 8 MG in IV D5W 500 ML IV PRN (17:52)
--- NOTE | 2018-01-18 18:30 | NUR ---
RN CLOSING NOTES: No acute changes noted w/in shift. Pt tolerated C/A FiO2 35% via new trach. On telemonitor, remains SR. ANURADHA PICC line still w/ Levo Drip x 2 mcg/hr infusing well. RFA G20, SL kept patent & intact. Pt tolerated GTF Jevity 1.2 x 50 cc/hr (unable to reach goal of 65 d/t episode of high residual). FC kept patent & draining to BSB w/ adequate UOP. Kept well rested. Needs attended. Bed kept low & in locked pos. Call light placed w/in reach. Will endorse to PM RN for MASON.
--- NOTE | 2018-01-18 19:30 | NUR ---
DICTAPHONE TYPIST INITIAL SHIFT NOTES RECEIVED PATIENT IN BED, AWAKE, ALERT AND ORIENTED X1, NODDING YES/NO TO QUESTIONS ASKED. TRACH MIDLINE AND INTACT, STITCHES IN PLACE, ON COOL AEROSOL, FIO2 40%, TOLERATING WELL, FREE FROM ANY S/S OF RESPIRATORY DISTRESS. SINUS RHYTHM ON BEDSIDE MONITOR. LAST CATHETER PATENT AND INTACT, DRAINING CLEAR YELLOW URINE VIA GRAVITY. HOB KEPT IN SEMIFOLWER'S, REPOSITIONED FOR COMFORT. BED IN LOWEST AND LOCKED POSITION, WILL CONTINUE TO CLOSELY MONITOR
[2018-01-19] VITALS (96 sets, daily range): BP systolic 84–124; BP diastolic 55–83
--- NOTE | 2018-01-19 | NUR ---
RT PT RECEIVED ON CA 35% 8L. PT TOLERATING CA WELL. NO SOB OR RESP DISTRESS NOTED. WILL CONTINUE TO MONITOR. Addendum: 01/19/18 at 0001 by TIMOTHY ALVAREZ RT Amended: Links added.
--- NOTE | 2018-01-19 02:36 | NUR ---
TECHNICAL REP NOTES PATIENT SEEN AND EXAMINED BY DR FONTAINE. PER DR FONTAINE, "PLEASE HAVE MD OR TRACH SPECIALIST REASSESS THE PATIENT REGARDING POSSIBLE VAGUS NERVE COMPRESSION TO FIND OUT THE CAUSE OF THE LOW BP".
[2018-01-19] MEDS: LEVOFLOXACIN (500MG) 500 MG TABLET PO SCH (03:17)
[2018-01-19] MEDS: METRONIDAZOLE 500 MG TABLET PO SCH ×3 (04:15→20:13)
[2018-01-19] MEDS: VALPROIC ACID 250 MG/5 ML UDC GT SCH ×3 (04:15→19:51)
[2018-01-19 04:48] LABS: BASOPHILS # (AUTO) 0.1 /CMM (0.0-0.2); BASOPHILS % (AUTO) 1.2 % (0.0-2.0); EOSINOPHILS % (AUTO) 12.8 % (0.0-6.0); HEMATOCRIT 28 % (39-51); HEMOGLOBIN 9.4 g/dL (13.5-17.5); LYMPHOCYTES # (AUTO) 1.2 /CMM (0.8-4.8); LYMPHOCYTES % (AUTO) 16.2 % (20.0-44.0); MEAN CORPUSCULAR HGB CONC 34 g/dl (31.0-36.0); MEAN CORPUSCULAR VOLUME 98 fL (80-96); MONOCYTES # (AUTO) 0.7 /CMM (0.1-1.30); MONOCYTES % (AUTO) 9.1 % (2.0-12.0); NEUTROPHILS # (AUTO) 4.6 /CMM (1.8-8.9); NEUTROPHILS % (AUTO) 60.7 % (43.0-81.0); PLATELET COUNT (AUTO) 280 /CMM (150-450); RED BLOOD CELL COUNT(AUTO) 2.86 MIL/uL (4.5-6.0); WHITE BLOOD COUNT (AUTO) 7.6 K/uL (4.3-11.0)
[2018-01-19 04:59] LABS: CALCIUM, SERUM 8.3 mg/dL (8.5-10.1); CREATININE 0.8 mg/dL (0.6-1.3); POTASSIUM 3.8 mmol/L (3.5-5.1)
--- NOTE | 2018-01-19 08:08 | NUR ---
INITIAL LINEN SUPPLY LOAD BUILDER NOTE RCVD PT AWAKE AND ALERT, ABLE TO FOLLOW SIMPLE COMMANDS SR ON MONITOR, ON COOL AEROSOL TOLERATING WELL. PEG PLACEMENT VERIFIED BY AUSCULTATION/ASPIRATION OF GASTRIC CONTENTS. NO TUBE FEEDING RESIDUAL OBTAINED. TUBE FEED RATE INCREASED TO 60 ML/HR. LAST TO GRAVITY DRAINING YELLOW URINE. IV SITES C/D/I/PATENT. NO S/O INFILTRATION/PHLEBITIS OBSERVED UPON FLUSHING. PT ON LEVO MAINTAINING SBP PER ORDER. WILL CONTINUE TO MONITOR PT FOR SAFETY AND COMFORT. CALL LIGHT WITHIN REACH. BED IN LOW AND LOCKED POSITION. HOB ELEVATED.
[2018-01-19] MEDS: LamoTRIgine 100 MG TABLET GT SCH ×2 (09:31→20:13)
[2018-01-19] MEDS: LEVETIRACETAM SOL (5 ML) 100 MG/ML UDC GT SCH ×2 (09:31→20:12)
[2018-01-19] MEDS: Z GUARD REMEDY 2 OZ OINT TP SCH (09:32)
[2018-01-19] MEDS: CLOTRIMAZOLE 1% 15 GM TUBE TP SCH ×2 (09:33→16:43)
--- NOTE | 2018-01-19 10:18 | NUR ---
PROCESS AREA SUPERVISOR NOTE DR. GARNER ROUNDING IN UNIT INFORMED OF DR. FONTAINE'S CONCERN REGARDING POSSIBLE COMPRESSION OF VAGUS NERVE WITH TRACH. PER DR. GARNER THIS IS UNLIKELY SINCE THERE ARE NOT A LOT OF CHOLYNERGIC SYMPTOMS.
[2018-01-19] MEDS: METOCLOPRAMIDE HCL 10 MG TABLET GT SCH ×2 (15:05→19:51)
[2018-01-19] MEDS: NOREPINEPHRINE 8 MG in IV D5W 500 ML IV PRN (17:58)
[2018-01-19] MEDS: JEVITY 1.2 CAL 1,000 ML BOTTLE GT PRN (18:17)
--- NOTE | 2018-01-19 18:44 | NUR ---
SAILOR NOTE PT RESTING IN BED, SHOWING NO S/O DISTRESS/PAIN AT THIS TIME. SR ON MONITOR. TOLERATING COOL AEROSOL WELL. LAST TO GRAVITY DRAINING YELLOW URINE. G-TUBE PLACEMENT VERIFIED BY AUSCULTATION/ASPIRATION OF GASTRIC CONTENTS. TOLERATING TUBE FEEDING RATE AT GOAL RATE. NO RESIDUAL OBTAINED. IV SITES C/D/I/PATENT. NO S/O INFILTRATION/PHLEBITIS OBSERVED UPON FLUSHING. PT'S CARE WILL BE ENDORSED TO CROZE CUTTER RN AT CHANGE OF SHIFT. BED IN LOW AND LOCKED POSITION. CALL LIGHT WITHIN REACH. DR. ELLER IN UNIT EARLIER TODAY UPDATED ON PT'S CONDITION, INFORMED THAT PT HAD HIGH RESIDUAL 120 ML DURING CROZE CUTTER, AND THAT PT DID NOT HAVE PROTONIX ON BOARD. AWARE AND RECOMMENDED REGLAN AND TO START PT ON PROTONIX.
--- NOTE | 2018-01-19 19:30 | NUR ---
FIELD HAND NOTES RECEIVED PATIENT FROM DAY SHIFT NURSE. PATIENT LAYING IN BED, AWAKE, ALERT AND ORIENTED X1 TO SELF, ABLE TO NOD YES/NO TO QUESTIONS. PATIENT DENIES PAIN/DISCOMFORT. TRACH MIDLINE AND INTACT, ON COOL AEROSOL @ 35% FIO2, TOLERATING WELL, FREE FROM ANY S/S OF RESPIRATORY DISTRESS. ON LEVOPHED DRIP @ 5MCG, WILL TITRATE ACCORDINGLY. LAST CATHETER PATENT AND INTACT, DRAINING CLEAR YELLOW URINE VIA GRAVITY. GT PATENT AND INTACT, TUBE FEEDINGS AT PRESCRIBED RATE, NO GASTRIC RESIDUALS NOTED AT THIS TIME. PATIENT REPOSITIONED FOR COMFORT. HOB KEPT ELEVATED FOR ASPIRATION PRECAUTIONS. WILL MONITOR CLOSELY
--- NOTE | 2018-01-19 20:23 | NUR ---
RECEIVED PT TRACHED SHLY 8 ON COOL AEROSOL 35%. BS CL/DM. SX'D FOR MOD AMT OF THIN WHITE SECRETIONS. WILL CONTINUE TO MONITOR. Addendum: 01/19/18 at 2024 by JEIMY SANTOS RT Amended: Links added.
[2018-01-20] VITALS (90 sets, daily range): BP systolic 78–134; BP diastolic 51–99
[2018-01-20] MEDS: METOCLOPRAMIDE HCL 10 MG TABLET GT SCH ×4 (02:39→21:13)
[2018-01-20] MEDS: LEVOFLOXACIN (500MG) 500 MG TABLET PO SCH (02:39)
[2018-01-20] MEDS: VALPROIC ACID 250 MG/5 ML UDC GT SCH ×3 (04:14→21:13)
[2018-01-20 04:45] LABS: CALCIUM, SERUM 8.4 mg/dL (8.5-10.1); CREATININE 0.8 mg/dL (0.6-1.3); POTASSIUM 3.8 mmol/L (3.5-5.1)
[2018-01-20] MEDS: METRONIDAZOLE 500 MG TABLET PO SCH ×3 (04:47→21:14)
--- NOTE | 2018-01-20 07:00 | NUR ---
LOCOMOTIVE INSPECTOR CLOSING NOTES PATIENT RESTING IN BED, APPEARS COMFORTABLE, NO DISTRESS NOTED. WILL ENDORSE THE PATIENT TO THE AM SHIFT NURSE FOR CONTINUITY OF CARE
[2018-01-20] MEDS: LEVETIRACETAM SOL (5 ML) 100 MG/ML UDC GT SCH ×2 (08:51→21:13)
[2018-01-20] MEDS: PANTOPRAZOLE 40 MG/PACK PACK GT SCH (08:53)
[2018-01-20] MEDS: Z GUARD REMEDY 2 OZ OINT TP PRN (08:54)
[2018-01-20] MEDS: Z GUARD REMEDY 2 OZ OINT TP SCH (10:31)
[2018-01-20] MEDS: LamoTRIgine 100 MG TABLET GT SCH ×2 (10:31→21:14)
[2018-01-20] MEDS: CLOTRIMAZOLE 1% 15 GM TUBE TP SCH ×2 (10:31→16:32)
[2018-01-20] MEDS: HYDROCORTISONE SOD SUCCINATE 100 MG/2 ML VIAL IV SCH ×3 (10:31→16:31)
[2018-01-20] MEDS: NOREPINEPHRINE 8 MG in IV D5W 500 ML IV PRN (15:31)
--- NOTE | 2018-01-20 17:31 | NUR ---
RN NOTE 0720: Received patient eyes open, passive. No S/S discomfort noted at this time. With trache to cool aerosol no respiratory distress noted at this time. With GT intact, feeding tolerated well, 10mL residuals noted. ANURADHA PICC intact. On Levo @ 7mcg, will titrate as ordered. Folwy cath intact, noted with clear yellow urine drained to BSD. 0910: S/E by Dr. Wang, with order to start on Hydrocortisone 100mg TID. 1000: Noted patient with large amount ob soft formed brown stool. Cleaned patient and changed linens. 1600: Large amount of soft brown stool noted. Cleaned and changed linens. Ordered new refill for Zguard and Lotrimin, called pharmacy x2. 1730: No any significant changes noted at this time. Remained on 5mcg of Levophed, SBO remained >90. Kept clean, warm and dry. Needs attended.
--- NOTE | 2018-01-20 20:00 | NUR ---
Received patient from day shift RN patient eyes open tracking and follows simple commands.Non verbal. With trach on cool aerosol 35%.Suction small amount thick white secretion.SPO2 96%.No distress noted. SR per monitor with Levophed gtt for BP support and will titrate accordingly.GT feeding infusing 65 ml/hr. Residual checked 5 ml.Abdomen soft BS active.FC to gravity drainage with clear yellow urine.No distress noted.Turned and repositioned offloading pressure points.Continue monitoring.
--- NOTE | 2018-01-20 20:24 | NUR ---
RECEIVED PT TRACHED SHLY 8 ON COOL AEROSOL 35%. BS CL/DM. SX'D FOR SML AMT OF THIN WHITE SECRETIONS. WILL CONTINUE TO MONITOR. Addendum: 01/20/18 at 2023 by JEIMY SANTOS RT Amended: Links added.
--- NOTE | 2018-01-20 22:20 | NUR ---
VS stable.Oral care done.Secretions suctioned.Turned and repositioned.No distress noted.
[2018-01-21] VITALS (92 sets, daily range): BP systolic 56–121; BP diastolic 37–87
--- NOTE | 2018-01-21 | NUR ---
Patient resting.VS stable.Tolerating GT feeding well.No vomiting noted.Repositioned.
--- NOTE | 2018-01-21 02:00 | NUR ---
Bed bath rendered and complete linens changed.No BM noted.Turned and repositioned.VS remains stable.
[2018-01-21] MEDS: METOCLOPRAMIDE HCL 10 MG TABLET GT SCH ×4 (02:30→20:30)
[2018-01-21] MEDS: LEVOFLOXACIN (500MG) 500 MG TABLET PO SCH (02:30)
[2018-01-21] MEDS: METRONIDAZOLE 500 MG TABLET PO SCH ×3 (04:30→20:30)
[2018-01-21] MEDS: VALPROIC ACID 250 MG/5 ML UDC GT SCH ×3 (04:30→20:30)
--- NOTE | 2018-01-21 06:30 | NUR ---
No significant change noted on patient status during the shift.All due medications administered. Turned and repositioned.Levophed gtt at same rate.Adequate urine output.No BM noted.No signs of pain noted.
[2018-01-21 08:12] LABS: BASOPHILS # (AUTO) 0.1 /CMM (0.0-0.2); BASOPHILS % (AUTO) 0.5 % (0.0-2.0); EOSINOPHILS % (AUTO) 0.2 % (0.0-6.0); HEMATOCRIT 28 % (39-51); HEMOGLOBIN 9.4 g/dL (13.5-17.5); LYMPHOCYTES # (AUTO) 1.6 /CMM (0.8-4.8); LYMPHOCYTES % (AUTO) 10.7 % (20.0-44.0); MEAN CORPUSCULAR HGB CONC 34 g/dl (31.0-36.0); MEAN CORPUSCULAR VOLUME 96 fL (80-96); MONOCYTES % (AUTO) 6.6 % (2.0-12.0); NEUTROPHILS # (AUTO) 12.5 /CMM (1.8-8.9); PLATELET COUNT (AUTO) 363 /CMM (150-450); RED BLOOD CELL COUNT(AUTO) 2.88 MIL/uL (4.5-6.0); WHITE BLOOD COUNT (AUTO) 15.3 K/uL (4.3-11.0)
[2018-01-21 08:21] LABS: CALCIUM, SERUM 8.4 mg/dL (8.5-10.1); CREATININE 0.7 mg/dL (0.6-1.3); POTASSIUM 3.4 mmol/L (3.5-5.1)
[2018-01-21] MEDS: LEVETIRACETAM SOL (5 ML) 100 MG/ML UDC GT SCH ×2 (09:28→20:30)
[2018-01-21] MEDS: CLOTRIMAZOLE 1% 15 GM TUBE TP SCH ×2 (09:28→17:23)
[2018-01-21] MEDS: LamoTRIgine 100 MG TABLET GT SCH ×2 (09:28→20:30)
[2018-01-21] MEDS: HYDROCORTISONE SOD SUCCINATE 100 MG/2 ML VIAL IV SCH ×3 (09:28→17:23)
[2018-01-21] MEDS: Z GUARD REMEDY 2 OZ OINT TP SCH (09:28)
[2018-01-21] MEDS: PANTOPRAZOLE 40 MG/PACK PACK GT SCH (09:28)
[2018-01-21] MEDS ORDERED: POTASSIUM CHLORIDE 20 MEQ POWDER PACKET NG SCH (10:30)
--- NOTE | 2018-01-21 10:34 | NUR ---
RN NOTE 0720: Received patient awake, tracks voice but unable to move. With trache to cool aerosol no respiratory distress noted at this time. GT intact, feeding tolerated well. Sin cath intact, noted with clear yellow urine drained to BSD. SR on the monitor. 0920: S/E by Dr. Wang, no new order at this time. 1030: No any significant changes noted at this time. [place] 1 packet given for K 3.4. Kept clean, warm and dry. Needs attended.
[2018-01-21] MEDS: JEVITY 1.2 CAL 1,000 ML BOTTLE GT PRN (10:39)
[2018-01-21] MEDS: NOREPINEPHRINE 8 MG in IV D5W 500 ML IV PRN (15:19)
--- NOTE | 2018-01-21 19:32 | NUR ---
RECEIVED PT TRACHED SHLY 8 ON COOL AEROSOL 35%. BS CLEAR . SUCTIONED SMALL AMOUNT OF THIN WHITE SECRETIONS. WILL CONTINUE TO MONITOR.
--- NOTE | 2018-01-21 20:00 | NUR ---
Received patient in no acute distress.Eyes open and tracks.Non verbal.Trach intact on cool aerosol at 35 %.Levophed gtt at 5 mcg infusing via ANURADHA PICC Line for BP support and will titrate accordingly.GT feeding in progress.HOB elevated.FC to gravity drainage with clear yellow urine. Turned and repositioned.
[2018-01-22] VITALS (91 sets, daily range): BP systolic 82–112; BP diastolic 42–76
[2018-01-22] MEDS: METOCLOPRAMIDE HCL 10 MG TABLET GT SCH ×4 (03:00→21:40)
[2018-01-22] MEDS: LEVOFLOXACIN (500MG) 500 MG TABLET PO SCH (03:00)
[2018-01-22] MEDS: VALPROIC ACID 250 MG/5 ML UDC GT SCH ×3 (04:52→21:45)
[2018-01-22] MEDS: METRONIDAZOLE 500 MG TABLET PO SCH ×3 (04:52→21:45)
[2018-01-22] MEDS: JEVITY 1.2 CAL 1,000 ML BOTTLE GT PRN (06:21)
--- NOTE | 2018-01-22 07:15 | NUR ---
Patient resting in no acute distress.VS stable on Levophed gtt at 5 mcg.AM care done. No significant change noted all throughout the shift.Report given to AM shift RN for MASON.
--- NOTE | 2018-01-22 07:45 | NUR ---
INITIAL WATER TRUCK DRIVER NOTE RCVD PT AWAKE AND ALERT, SHOWING NO S/O DISTRESS, DENIES PAIN AT THIS TIME. SR ON MONITOR ON COOL AEROSOL TOLERATING WELL. PEG PLACEMENT VERIFIED BY AUSCULTATION/ASPIRATION. NO TUBE FEEDING RESIDUAL OBTAINED. LAST TO GRAVITY DRAINING YELLOW URINE. IV SITES C/D/I/PATENT. NO S/O INFILTRATION/PHLEBITIS OBSERVED UPON FLUSHING. WILL CONTINUE TO MONITOR PT FOR SAFETY AND COMFORT. BED IN LOW AND LOCKED POSITION. CALL LIGHT WITHIN REACH.
[2018-01-22] MEDS: LamoTRIgine 100 MG TABLET GT SCH ×2 (08:30→21:45)
[2018-01-22] MEDS: LEVETIRACETAM SOL (5 ML) 100 MG/ML UDC GT SCH ×2 (08:30→21:40)
[2018-01-22] MEDS: HYDROCORTISONE SOD SUCCINATE 100 MG/2 ML VIAL IV SCH ×3 (08:30→17:13)
[2018-01-22] MEDS: PANTOPRAZOLE 40 MG/PACK PACK GT SCH (08:30)
[2018-01-22] MEDS: CLOTRIMAZOLE 1% 15 GM TUBE TP SCH ×2 (08:31→17:13)
[2018-01-22] MEDS: Z GUARD REMEDY 2 OZ OINT TP SCH (08:31)
[2018-01-22] MEDS ORDERED: SIMETHICONE 80 MG TAB.CHEW PO PRN (10:30)
--- NOTE | 2018-01-22 11:17 | NUR ---
ARMATURE BANDER NOTE DR. ELLER IN UNIT COVERING FOR DR. FONTAINE UPDATED REGARDING PT'S CONDITION. SHE WAS INFORMED THAT PT'S WBC TRENDING UP RECOMMENDED LABS FOR TODAY AND TOMORROW AM. INFORMED THAT PT'S URINARY OUTPUT HAS DECREASED, SHE RECOMMENDED TO FLUSH G-TUBE WITH 200 ML NS EVERY 8 HRS. NO TUBE FEEDING RESIDUAL THIS AM. WILL CONTINUE TO MONITOR. RE: THE WBC TRENDING UP SHE RECOMMENDED TO CONSULT WITH MARCEL WELCH. ORDERS ENTERED. WILL CONTINUE TO MONITOR PT.
[2018-01-22 12:19] LABS: BASOPHILS # (AUTO) 0.1 /CMM (0.0-0.2); BASOPHILS % (AUTO) 0.7 % (0.0-2.0); EOSINOPHILS % (AUTO) 0.1 % (0.0-6.0); HEMATOCRIT 27 % (39-51); HEMOGLOBIN 8.9 g/dL (13.5-17.5); MEAN CORPUSCULAR HGB CONC 34 g/dl (31.0-36.0); MEAN CORPUSCULAR VOLUME 96 fL (80-96); MONOCYTES # (AUTO) 0.7 /CMM (0.1-1.30); MONOCYTES % (AUTO) 5.5 % (2.0-12.0); NEUTROPHILS # (AUTO) 10.5 /CMM (1.8-8.9); NEUTROPHILS % (AUTO) 85.7 % (43.0-81.0); PLATELET COUNT (AUTO) 338 /CMM (150-450); RED BLOOD CELL COUNT(AUTO) 2.77 MIL/uL (4.5-6.0); WHITE BLOOD COUNT (AUTO) 12.3 K/uL (4.3-11.0)
[2018-01-22 12:28] LABS: CALCIUM, SERUM 7.9 mg/dL (8.5-10.1); CREATININE 0.7 mg/dL (0.6-1.3); POTASSIUM 3.2 mmol/L (3.5-5.1)
[2018-01-22 12:50] LABS: LYMPHOCYTES % (MANUAL) 8 % (16-48); NEUTROPHILS % (MANUAL) 84 (42-76)
[2018-01-22 12:51] LABS: MONOCYTES % (MANUAL) 8 % (0-11.0)
[2018-01-22] MEDS: POTASSIUM CL. PREMIX PERIPHER. 50 ML IV SCH ×4 (14:19→18:14)
--- NOTE | 2018-01-22 15:44 | NUR ---
BACKPACKERS MANAGER NOTE MARCEL WELCH IN UNIT UPDATED REGARDING PT'S CONDITION.
[2018-01-22] MEDS: NOREPINEPHRINE 8 MG in IV D5W 500 ML IV PRN (17:24)
--- NOTE | 2018-01-22 19:24 | NUR ---
BODY ROLLING MACHINE TENDER NOTE PT REMAINS AWAKE AND ALERT, FOLLOWING COMMANDS. NO S/O DISTRESS/PAIN OBSERVED. SR/SB ON MONITOR. TOLERATING O2 VIA COOL AEROSOL. G-TUBE CLAMPED DUE TO HIGH RESIDUAL 180 ML. IV SITES C/D/I/PATENT. NO S/O INFILTRATION/PHLEBITIS OBSERVED LEVO INFUSING ORDERED. PT'S CARE ENDORSED TO JAILER/TRAINING OFFICER RN FOR CONTINUITY OF CARE. BED IN LOW AND LOCKED POSITION. CALL LIGHT WITHIN REACH.
--- NOTE | 2018-01-22 21:29 | NUR ---
AMERICAN INDIAN POLICY SPECIALIST. INITIAL ASSESSMENT. RECEIVED THE PT REST ON THE BED. TRACH TO VENT CONNECTED. PT AWAKE, ALERT, DOES NOT FOLLOW COMMANDS. EXERCISER HORSE SHOWING S GABRIEL. SHILEY#8, OXYGEN T PICE CONNECTED TO THE TRACH. SAT 95%. NO ACUTE DISTRESS NOTED. FC PATENT. RT UPPERARM PICC LINE LEVOPHED 3MCG/MIN, HOB ELEVATED. GT CLAMPED. WILL CONTINUE TO MONITOR.
[2018-01-23] VITALS (89 sets, daily range): BP systolic 80–118; BP diastolic 45–71
[2018-01-23] MEDS: METOCLOPRAMIDE HCL 10 MG TABLET GT SCH ×4 (02:29→20:30)
[2018-01-23 04:35] LABS: BASOPHILS # (AUTO) 0.1 /CMM (0.0-0.2); BASOPHILS % (AUTO) 0.7 % (0.0-2.0); HEMATOCRIT 26 % (39-51); HEMOGLOBIN 8.6 g/dL (13.5-17.5); LYMPHOCYTES # (AUTO) 1.7 /CMM (0.8-4.8); LYMPHOCYTES % (AUTO) 12.5 % (20.0-44.0); MEAN CORPUSCULAR HGB CONC 33 g/dl (31.0-36.0); MEAN CORPUSCULAR VOLUME 96 fL (80-96); MONOCYTES # (AUTO) 0.9 /CMM (0.1-1.30); MONOCYTES % (AUTO) 6.5 % (2.0-12.0); NEUTROPHILS # (AUTO) 11.1 /CMM (1.8-8.9); NEUTROPHILS % (AUTO) 80.3 % (43.0-81.0); PLATELET COUNT (AUTO) 387 /CMM (150-450); RED BLOOD CELL COUNT(AUTO) 2.68 MIL/uL (4.5-6.0); WHITE BLOOD COUNT (AUTO) 13.8 K/uL (4.3-11.0)
[2018-01-23] MEDS: METRONIDAZOLE 500 MG TABLET PO SCH ×3 (04:36→20:30)
[2018-01-23] MEDS: VALPROIC ACID 250 MG/5 ML UDC GT SCH ×3 (04:37→20:27)
--- NOTE | 2018-01-23 04:38 | NUR ---
DISTRICT COURT JUDGE. AM CARE, ORAL CARE BED BATH GIVEN. LINEN CHANGED. REMAINING SAME OXYGEN TOLERATED WELL. SAT 95%. NO ACUTE DISTRESS NOTED, YOUTH SERVICES SPECIALIST SHOWING S GABRIEL. AFEBRILE. GT FEEDING TOLERATED WELL. FC PATENT. URINE DRAINING. HOB ELEVATED. IV RT UPPER ARM PICC LINE, LEVOPHED 3MCG/MIN. TURN AND REPOSITION Q2H. WILL CONTINUE TO MONITOR VITALS.
[2018-01-23 05:23] LABS: CALCIUM, SERUM 7.6 mg/dL (8.5-10.1); CREATININE 0.8 mg/dL (0.6-1.3); POTASSIUM 3.6 mmol/L (3.5-5.1)
--- NOTE | 2018-01-23 07:27 | NUR ---
INITIAL POTATO SPOTTER NOTE RCVD PT AWAKE AND ALERT TO SELF, ABLE TO FOLLOW SIMPLE COMMANDS, SHOWING NO S/O DISTRESS OR PAIN. SB ON MONITOR WHILE SLEEPING. REMAINS ON COOL AEROSOL TOLERATING WELL. PEG PLACEMENT VERIFIED BY AUSCULTATION/ASPIRATION. LAST TO GRAVITY DRAINING YELLOW URINE. IV SITES C/D/I/PATENT. NO S/O INFILTRATION/PHLEBITIS OBSERVED UPON FLUSHING, LEVO INFUSING. TOLERATING TUBE FEEDING NO RESIDUAL OBTAINED UPON ASPIRATING. WILL CONTINUE TO MONITOR PT FOR SAFETY AND COMFORT. BED IN LOW AND LOCKED POSITION. CALL LIGHT WITHIN REACH. HOB ELEVATED.
[2018-01-23] MEDS: LEVETIRACETAM SOL (5 ML) 100 MG/ML UDC GT SCH ×2 (08:03→20:28)
[2018-01-23] MEDS: HYDROCORTISONE SOD SUCCINATE 100 MG/2 ML VIAL IV SCH ×3 (08:04→17:20)
[2018-01-23] MEDS: LamoTRIgine 100 MG TABLET GT SCH ×2 (08:04→20:30)
[2018-01-23] MEDS: PANTOPRAZOLE 40 MG/PACK PACK GT SCH (08:04)
[2018-01-23] MEDS: CLOTRIMAZOLE 1% 15 GM TUBE TP SCH ×2 (08:05→17:20)
[2018-01-23] MEDS: Z GUARD REMEDY 2 OZ OINT TP SCH (08:05)
[2018-01-23] MEDS: JEVITY 1.2 CAL 1,000 ML BOTTLE GT PRN ×2 (08:05→20:40)
[2018-01-23] MEDS: NOREPINEPHRINE 8 MG in IV D5W 500 ML IV PRN (15:20)
--- NOTE | 2018-01-23 18:25 | NUR ---
MECHANICAL ENGINEERING MANAGER NOTE PT REMAINS STABLE, AWAKE AND ALERT, TOLERATING O2 VIA COOL AEROSOL, SB ON MONITOR. TOLERATING TUBE FEEDING RATE AND FLUSHES. LAST DRAINING YELLOW URINE. IV SITES C/D/I/PATENT. NO S/O INFILTRATION/PHLEBITIS OBSERVED, PT REMAINS ON LEVO AND TITRATED TO MAINTAIN SBP [address] GARNER. PT'S CARE WILL BE ENDORSED TO OCEAN LIFEGUARD RN FOR CONTINUITY OF CARE. BED IN LOW AND LOCKED POSITION. CALL LIGHT WITHIN REACH.
--- NOTE | 2018-01-23 19:30 | NUR ---
COAL WASHER TENDER: RECEIVED PT ALERT AND AWAKE. TRACH CONNECTED TO C/A AT 35% FI02. NO ACUTE DISTRESS, NO EVIDENCE OF DISCOMFORT. ABLE TO BLINK EYES AND NOD HEAD WHEN TALKED TO. SR-SB ON BUSINESS TRAINER. AFEBRILE. ANURADHA PICC LINE INFUSING LEVOPHED AT 3MCG/MIN FOR BP SUPPORT WT NO S/S OF COMPLICATIONS. GT RUNNING JEVITY AT 65ML/HR WT NO RESIDUAL NOTED. F/C DRAINING YELLOW URINE TO GRAVITY. HOB AT 35 DEGREES. SEIZURE AND SAFETY PRECAUTION NOTED. WILL CONTINUE TO MONITOR.
[2018-01-23] MEDS: IV NS 0.9% 250 ML IV PRN (21:14)
[2018-01-24] VITALS (89 sets, daily range): BP systolic 82–121; BP diastolic 40–75
--- NOTE | 2018-01-24 00:15 | NUR ---
RT NOTE RCVD TRACH'D PT ON COOL AEROSOL WITH CHARTED SETTINGS. PT TOLERATING SETTINGS WELL. SX DONE. NO SOB OR RESP DISTRESS NOTED. AMBU BAG AT BEDSIDE. WILL CONTINUE TO MONITOR. Addendum: 01/24/18 at 0018 by KENTON WOOD RT Amended: Links added.
[2018-01-24] MEDS: METOCLOPRAMIDE HCL 10 MG TABLET GT SCH ×4 (02:40→20:18)
[2018-01-24] MEDS: VALPROIC ACID 250 MG/5 ML UDC GT SCH ×3 (05:33→20:18)
[2018-01-24] MEDS: METRONIDAZOLE 500 MG TABLET PO SCH ×2 (05:33→12:44)
--- NOTE | 2018-01-24 06:10 | NUR ---
DEVICE TEST ENGINEER: NO SIGNIFICANT MASON DURING THE SHIFT. NO ACUTE DISTRESS, NO EVIDENCE OF DISCOMFORT. VS WITHIN PT's BASELINE. STILL ON LEVOPHED AT 3MCG/MIN. SAFETY PRECAUTION NOTED AT ALL TIMES.
[2018-01-24] MEDS: HYDROCORTISONE SOD SUCCINATE 100 MG/2 ML VIAL IV SCH ×3 (08:04→17:09)
[2018-01-24] MEDS: PANTOPRAZOLE 40 MG/PACK PACK GT SCH (08:04)
[2018-01-24] MEDS: LamoTRIgine 100 MG TABLET GT SCH ×2 (08:04→20:17)
[2018-01-24] MEDS: LEVETIRACETAM SOL (5 ML) 100 MG/ML UDC GT SCH ×2 (08:04→20:18)
[2018-01-24] MEDS: CLOTRIMAZOLE 1% 15 GM TUBE TP SCH ×2 (08:05→17:10)
[2018-01-24] MEDS: Z GUARD REMEDY 2 OZ OINT TP SCH (08:05)
--- NOTE | 2018-01-24 09:46 | NUR ---
received pt from restaurant shift leader, alert, does not follow commands, SB, on levo at 3mcg, on T tube cool aerosol at 35% sat well, GT to feeding tolerates well, f/c OK output, v/s stable, no pain, pt turned and repositioned.
--- NOTE | 2018-01-24 16:56 | NUR ---
pt is resting in the bed, alert, SR, SB, on T tube at 35% sat well, v/s stable, no pain, pt cleaned, changed and repositioned q2hrs.
[2018-01-24] MEDS: NOREPINEPHRINE 8 MG in IV D5W 500 ML IV PRN (17:03)
--- NOTE | 2018-01-24 19:30 | NUR ---
PORCELAIN FINISH SPRAYER: RECEIVED WT EYES CLOSED, ABLE TO OPEN EYES, BLINK AND NOD HEAD WHEN TALKED TO. ON C/A AT 35% WT NO ACUTE DISTRESS. NO EVIDENCE OF DISCOMFORT. SR ON SENIOR ENGINEER. AFEBRILE. GTF TOLERATING WELL. STILL ON LEVOPHED AT 3MCG/MIN FOR BP SUPPORT. NO S/S OF PICC LINE COMPLICATIONS. F/C DRAINING YELLOW URINE TO GRAVITY. HOB AT 35 DEGREES. SEIZURE AND SAFETY PRECAUTION NOTED.
[2018-01-24] MEDS: IV NS 0.9% 250 ML IV PRN (20:17)
[2018-01-24] MEDS: JEVITY 1.2 CAL 1,000 ML BOTTLE GT PRN (20:18)
[2018-01-25] VITALS (87 sets, daily range): BP systolic 80–111; BP diastolic 42–79
[2018-01-25] MEDS: METOCLOPRAMIDE HCL 10 MG TABLET GT SCH ×4 (02:44→20:56)
[2018-01-25] MEDS: VALPROIC ACID 250 MG/5 ML UDC GT SCH ×3 (05:27→20:55)
--- NOTE | 2018-01-25 06:55 | NUR ---
RN INFORMATICS: STILL ON LEVOPHED AT 3MCG/MIN FOR BP SUPPORT. MOSTLY SB ON BOBCAT OPERATOR WT LOWEST HR=41, NOT SUSTAINED AND ASYMPTOMATIC. NO ADVERSE CHANGES NOTED. ALL NEEDS MET. WILL ENDORSE TO DAY SHIFT FOR CONTINUITY OF CARE.
--- NOTE | 2018-01-25 07:12 | NUR ---
RN INITIAL NOTES: Rec'd pt awake on bed, not in any distress. On C/A via trach, sating 98%. On telemonitor, SR. Has ANURADHA PICC line w/ Levo Drip x 3 mcg/hr infusing well. Has GT on cont GTF Jevity 1.2 x 65 cc/hr, no residual noted upon checking. Has FC draining to BSB. Provided comfort & safety measures. Bed kept low & in locked pos. Call light placed w/in reach. Will cont to monitor & attend pt needs.
[2018-01-25] MEDS: LEVETIRACETAM SOL (5 ML) 100 MG/ML UDC GT SCH ×2 (08:51→20:55)
[2018-01-25] MEDS: PANTOPRAZOLE 40 MG/PACK PACK GT SCH (08:51)
[2018-01-25] MEDS: HYDROCORTISONE SOD SUCCINATE 100 MG/2 ML VIAL IV SCH ×3 (08:51→16:52)
[2018-01-25] MEDS: Z GUARD REMEDY 2 OZ OINT TP SCH (08:52)
[2018-01-25] MEDS: LamoTRIgine 100 MG TABLET GT SCH ×2 (08:52→20:55)
[2018-01-25] MEDS: CLOTRIMAZOLE 1% 15 GM TUBE TP SCH ×2 (08:52→16:52)
[2018-01-25 09:07] LABS: ABG BASE EXCESS 9.8 mmol/L; ABG OXYGEN SATURATION 96.5 % (92.0-98.5); ABG PCO2 42.9 mmHg (35.0-45.0); ABG PH 7.513 (7.350-7.450); ABG PO2 89.9 mmHg (75.0-100.0); AaDO2 109.8 mmHg; COHb 0.3 % (0.5-1.5); MetHb 0.5 % (0.0-1.5); O2Hb 95.7 % (94.0-97.0); SITE, ABG Left Radial
[2018-01-25] MEDS: JEVITY 1.2 CAL 1,000 ML BOTTLE GT PRN (12:50)
[2018-01-25] MEDS: NOREPINEPHRINE 8 MG in IV D5W 500 ML IV PRN (17:01)
--- NOTE | 2018-01-25 18:48 | NUR ---
RN CLOSING NOTES: No acute changes noted w/in shift. Pt tolerated C/A FiO2 35% via trach. On telemonitor, SB. ANURADHA PICC line still w/ Levo Drip x 4 mcg/hr infusing well. Pt tolerated GTF Jevity 1.2 x 65 cc/hr. FC kept patent & draining to BSB w/ adequate UOP. Kept well rested. Needs attended. Bed kept low & in locked pos. Call light placed w/in reach. Will endorse to PM RN for MASON.
--- NOTE | 2018-01-25 20:00 | NUR ---
RECEIVED PT TRACHED ON COOL AEROSOL 35% FIO2. NO DISTRESS. SX'D FOR SML AMT OF THIN WHITE SECRETIONS. WILL CONTINUE TO MONITOR. Addendum: 01/25/18 at 2000 by JEIMY SANTOS RT Amended: Links added.
[2018-01-26] VITALS (85 sets, daily range): BP systolic 80–125; BP diastolic 44–71
[2018-01-26] MEDS: METOCLOPRAMIDE HCL 10 MG TABLET GT SCH ×4 (01:25→20:11)
[2018-01-26] MEDS: JEVITY 1.2 CAL 1,000 ML BOTTLE GT PRN (04:32)
[2018-01-26] MEDS: VALPROIC ACID 250 MG/5 ML UDC GT SCH ×3 (04:32→20:11)
--- NOTE | 2018-01-26 08:00 | NUR ---
RN NOTE: PATIENT RECEIVED ALERT AWAKE, OPEN EYES SPONTANEOUSLY. CONTINUE ON COOL AEROSOL, SETTINGS TOLERATING WELL. NO RESPIRATORY DISTRESS NOTED. NO S/S OF PAIN/DISCOMFORT NOTED. G-TUBE RUNNING, TOLERATING WELL. NO RESIDUAL NOTED. HOB ELEVATED. ASPIRATION PRECAUTIONS OBSERVED. LAST CATH DRAINING WELL WITH GRAVITY. SAFETY MEASURES OBSERVED. CONTINUE TO TURN & REPOSITION Q2H. CONTINUE WITH PLAN OF CARE.
[2018-01-26] MEDS: LEVETIRACETAM SOL (5 ML) 100 MG/ML UDC GT SCH ×2 (08:41→20:49)
[2018-01-26] MEDS: HYDROCORTISONE SOD SUCCINATE 100 MG/2 ML VIAL IV SCH ×3 (08:41→16:53)
[2018-01-26] MEDS: PANTOPRAZOLE 40 MG/PACK PACK GT SCH (08:41)
[2018-01-26] MEDS: CLOTRIMAZOLE 1% 15 GM TUBE TP SCH ×2 (08:42→16:53)
[2018-01-26] MEDS: LamoTRIgine 100 MG TABLET GT SCH ×2 (08:42→20:50)
[2018-01-26] MEDS: Z GUARD REMEDY 2 OZ OINT TP SCH (08:43)
[2018-01-26] MEDS: NOREPINEPHRINE 8 MG in IV D5W 500 ML IV PRN (11:24)
[2018-01-26] MEDS: FLUCONAZOLE (100 MG) 100 MG TABLET PO SCH (12:58)
--- NOTE | 2018-01-26 18:31 | NUR ---
RN NOTE: NO SIGNIFICANT CHANGES NOTED DURING SHIFT. CONTINUE WITH LEVO DRIP ORDERED. ASPIRATION PRECAUTIONS OBSERVED. G-TUBE RUNNING. F/C INTACT, DRAINING WELL WITH GRAVITY. CONTINUE TO MONITOR.
--- NOTE | 2018-01-26 19:15 | NUR ---
ICU/RN RECEIVED PT AWAKE ALERT,SHAKES HEAD WHEN ASKED IF IN PAIN OR DISCOMFORT.SMILES OCCASIONALLY.DOES NOT FOLLOW COMMANDS.TUBE FEEDING CHECKED FOR PATENCY AND FOR RESIDUAL.
--- NOTE | 2018-01-26 19:48 | NUR ---
RECEIVED PT TRACHED ON COOL AEROSOL 35% FIO2. NO DISTRESS. DM BREATH SOUND SX'D FOR MOD AMT OF THICK WHITE SECRETIONS. WILL CONTINUE TO MONITOR. Addendum: 01/26/18 at 1949 by JEIMY SANTOS RT Amended: Links added.
--- NOTE | 2018-01-26 20:45 | NUR ---
ICU/RN SUCTIONED FOR COPIOUS AMT.FROM T-PIECE MODERATE THICK WHITE SECRETIONS.
--- NOTE | 2018-01-26 23:00 | NUR ---
ICU/RN ON LEVOPHED DRIP AT 4MCG/MIN,WILL ATTEMPT TO WEAN PT BUT BBP=96/59.REQUIRING FREQUENT SUCTIONING
[2018-01-27] VITALS (84 sets, daily range): BP systolic 77–127; BP diastolic 40–83
[2018-01-27] MEDS: JEVITY 1.2 CAL 1,000 ML BOTTLE GT PRN ×2 (00:25→17:20)
--- NOTE | 2018-01-27 03:00 | NUR ---
ICU/RN LEVOPHED DECREASED TO3MCG/MIN W/ SBP OF 127MMHG.
[2018-01-27] MEDS: METOCLOPRAMIDE HCL 10 MG TABLET GT SCH ×4 (03:27→20:57)
[2018-01-27] MEDS: VALPROIC ACID 250 MG/5 ML UDC GT SCH ×3 (05:15→20:57)
--- NOTE | 2018-01-27 06:00 | NUR ---
ICU/RN MONITOR SINUS GABRIEL.ON LEVOPHED AT 3MCG/MIN.CONTINUES TO REQUIRE FREQUENT SUCTIONING.
--- NOTE | 2018-01-27 07:48 | NUR ---
INITIAL CLINICAL ADVISOR NOTE RCVD PT AWAKE AND ALERT TO SELF, ABLE TO FOLLOW SIMPLE COMMANDS, SB ON MONITOR, ON T-PIECE TOLERATING WELL. PEG PLACEMENT VERIFIED BY AUSCULTATION/ASPIRATION, NO RESIDUAL OBTAINED. LAST TO GRAVITY DRAINING, CLEAR, YELLOW URINE. ANURADHA PICC C/D/I/PATENT. NO S/O INFILTRATION/PHLEBITIS OBSERVED UPON FLUSHING. WILL CONTINUE TO MONITOR PT FOR SAFETY AND COMFORT. BED IN LOW AND LOCKED POSITION. CALL LIGHT WITHIN REACH. HOB ELEVATED AT 30 DEGREES.
--- NOTE | 2018-01-27 08:34 | NUR ---
RT PT RECEIVED TRACHED ON COOL AEROSOL, PT IS AWAKE AND RESPONDS TO STIMULI WHEN SUCTIONED, NO SOB, NO RESPIRATORY DISTRESS NOTED AT THIS TIME. WILL CONTINUE TO MONITOR. Addendum: 01/27/18 at 1035 by VAN ZIMMER RT Amended: Links added.
[2018-01-27] MEDS: FLUCONAZOLE (100 MG) 100 MG TABLET PO SCH (08:58)
[2018-01-27] MEDS: LEVETIRACETAM SOL (5 ML) 100 MG/ML UDC GT SCH ×2 (08:58→20:57)
[2018-01-27] MEDS: HYDROCORTISONE SOD SUCCINATE 100 MG/2 ML VIAL IV SCH ×3 (08:58→17:21)
[2018-01-27] MEDS: PANTOPRAZOLE 40 MG/PACK PACK GT SCH (08:58)
[2018-01-27] MEDS: LamoTRIgine 100 MG TABLET GT SCH ×2 (08:58→20:57)
[2018-01-27] MEDS: CLOTRIMAZOLE 1% 15 GM TUBE TP SCH ×2 (08:59→17:23)
[2018-01-27] MEDS: Z GUARD REMEDY 2 OZ OINT TP SCH (08:59)
--- NOTE | 2018-01-27 09:23 | NUR ---
STRAW HAT PRESSER NOTE DR. GARNER IN UNIT UPDATED ON PT'S CONDITION RECOMMENDED TO STOP LEVO AND SEE HOW PT TOLERATES. WILL CONTINUE TO MONITOR. HE WAS INFORMED THAT NO LAB WORK ORDERED FOR THIS AM AND PT'S ECG HAS A U WAVE PRESENT. HE RECOMMENDED TO GET BMP AND MG ORDERS ENTERED. LAB CALLED TO COME DRAW PT.
[2018-01-27 10:06] LABS: CALCIUM, SERUM 7.3 mg/dL (8.5-10.1); CREATININE 0.7 mg/dL (0.6-1.3); MAGNESIUM 2.1 mg/dL (1.8-2.4); POTASSIUM 3.2 mmol/L (3.5-5.1)
[2018-01-27] MEDS ORDERED: POTASSIUM CHLORIDE 20 MEQ POWDER PACKET NG SCH (12:00)
[2018-01-27] MEDS: NOREPINEPHRINE 8 MG in IV D5W 500 ML IV PRN (13:26)
[2018-01-27] MEDS ORDERED: IV NS 0.9% 1,000 ML IV ONE (13:30)
[2018-01-27] MEDS: IV NS 0.9% 1,000 ML IV PRN ×2 (14:56→15:07)
--- NOTE | 2018-01-27 18:24 | NUR ---
BRIM STITCHER NOTE PT REMAINS STABLE ON LOW DOSE LEVOPHED TO MAINTAIN SBP >[address] ARCE. HE WAS CONSULTED REGARDING PT'S SUSTAINED BRADYCARDIA. PT CONTINUES TO TOLERATE TUBE FEEDING WELL. IV SITE C/D/I/PATENT. NO S/O INFILTRATION/PHLEBITIS OBSERVED , IVF INFUSING ORDERED. TOLERATING TUBE FEEDING RATE. PT'S CARE WILL BE ENDORSED TO SLIP OPERATOR RN FOR CONTINUITY OF CARE. BED IN LOW AND LOCKED POSITION, HOB ELEVATED AT 30 DEGREES.
--- NOTE | 2018-01-27 20:00 | NUR ---
MANAGER PARKING NOTE PT RECEIVED IN BED AWAKE. ALERT, NON VERBAL. ON SHIELY #8 TRACH WITH COOL AEROSOL 6l 35%. ON TELE MONITOR SB HR 45. NO DISTRESS OR DISCOMFORT NOTED. NO S/S OF PAIN NOTED. F/C INTACT AND PATENT DRAINING CLEAR YELLOWISH COLOR URINE. GTF INTACT AND PATENT INFUSING JEVITY AT 65 ML/HR, 10 ML RESIDUAL NOTED. KEPT HOB ELEVATED. ANURADHA WITH PICC LINE INFUSING LEVOPHED 1 MCG/MIN. B/P AT THIS TIME 108/65. SIDE RAILS UP X 3 AND CALL LIGHT WITHIN REACH. REPOSITION HIM FOR SKIN AND COMFORT MEASUREMENTS. KEPT HIM DRY AND CLEAN. ALL NEEDS ATTENDED. VSS. CONTINUE TO MONITOR HIM.
--- NOTE | 2018-01-27 23:19 | NUR ---
RT NOTE RCVD TRACH'D PT ON COOL AEROSOL WITH CHARTED SETTINGS. PT TOLERATING SETTINGS WELL. SX DONE. NO SOB OR RESP DISTRESS NOTED. AMBU BAG AT BEDSIDE. WILL CONTINUE TO MONITOR. Addendum: 01/27/18 at 2319 by KENTON WOOD RT Amended: Links added.
[2018-01-28] VITALS (64 sets, daily range): BP systolic 92–147; BP diastolic 15–99
[2018-01-28] MEDS: METOCLOPRAMIDE HCL 10 MG TABLET GT SCH ×4 (02:42→21:43)
[2018-01-28] MEDS: VALPROIC ACID 250 MG/5 ML UDC GT SCH ×3 (04:53→21:43)
[2018-01-28 05:00] LABS: BASOPHILS % (AUTO) 0.2 % (0.0-2.0); HEMATOCRIT 26 % (39-51); HEMOGLOBIN 8.4 g/dL (13.5-17.5); LYMPHOCYTES # (AUTO) 1.2 /CMM (0.8-4.8); LYMPHOCYTES % (AUTO) 14.7 % (20.0-44.0); MEAN CORPUSCULAR HGB CONC 32 g/dl (31.0-36.0); MEAN CORPUSCULAR VOLUME 98 fL (80-96); MONOCYTES # (AUTO) 0.5 /CMM (0.1-1.30); MONOCYTES % (AUTO) 6.2 % (2.0-12.0); NEUTROPHILS # (AUTO) 6.4 /CMM (1.8-8.9); NEUTROPHILS % (AUTO) 78.9 % (43.0-81.0); PLATELET COUNT (AUTO) 296 /CMM (150-450); RED BLOOD CELL COUNT(AUTO) 2.65 MIL/uL (4.5-6.0); WHITE BLOOD COUNT (AUTO) 8.1 K/uL (4.3-11.0)
[2018-01-28 05:18] LABS: CALCIUM, SERUM 7.2 mg/dL (8.5-10.1); CREATININE 0.6 mg/dL (0.6-1.3); POTASSIUM 3.9 mmol/L (3.5-5.1)
--- NOTE | 2018-01-28 06:37 | NUR ---
MEDICAL STENOGRAPHER NOTE NO CHANGE IN PT'S CONDITION. IN BED ASLEEP, AROUSABLE. SUCTIONED HIM FREQUENTLY, THICK YELLOWISH SECRETIONS NOTED. PT REMAIN ON LEVOPHED 1 MCG/MIN BP 101/59 HR 65. GTF INFUSING WELL, 0 ML RESIDUAL NOTED. F/C INTACT AND PATENT DRAINING YELLOWISH COLOR URINE. SIDE RAILS UP X 3 AND CALL LIGHT WITHIN REACH. REPOSITION HIM Q2H, KEPT HIM DRY AND CLEAN. ALL NEEDS ATTENDED. WILL ENDORSE TO DAY SHIFT NURSE FOR CONTINUE TO CARE.
[2018-01-28] MEDS: FLUCONAZOLE (100 MG) 100 MG TABLET PO SCH (09:33)
[2018-01-28] MEDS: LEVETIRACETAM SOL (5 ML) 100 MG/ML UDC GT SCH ×2 (09:33→21:43)
[2018-01-28] MEDS: PANTOPRAZOLE 40 MG/PACK PACK GT SCH (09:34)
[2018-01-28] MEDS: HYDROCORTISONE SOD SUCCINATE 100 MG/2 ML VIAL IV SCH ×3 (09:34→16:00)
[2018-01-28] MEDS: IV NS 0.9% 1,000 ML IV SCH ×2 (09:34→14:18)
[2018-01-28] MEDS: LamoTRIgine 100 MG TABLET GT SCH ×2 (09:39→21:43)
[2018-01-28] MEDS: JEVITY 1.2 CAL 1,000 ML BOTTLE GT PRN (09:40)
[2018-01-28] MEDS: CLOTRIMAZOLE 1% 15 GM TUBE TP SCH ×2 (09:40→16:01)
[2018-01-28] MEDS: Z GUARD REMEDY 2 OZ OINT TP SCH (09:41)
--- NOTE | 2018-01-28 14:26 | NUR ---
ACUTE MEDICAL RESTRAINTS SOFT WRIST FOR BILATERAL UPPER EXTREMITIES PER MD ORDERS PATIENT NOTED REMOVING T-PIECE MULTIPLE MULTIPLE TIMES RESTRAINTS ORDERED DUE TO RISK OF INJURY OTHER ALTERNATIVES UTILIZED PRIOR, SEE ORDER DESCRIPTION
--- NOTE | 2018-01-28 19:20 | NUR ---
REPORT GIVEN TO NASIM NO SEIZURES DURING SHIFT
--- NOTE | 2018-01-28 19:55 | NUR ---
LAWYER PROBATE PT TRANSFERRED TO [facility].
--- NOTE | 2018-01-28 20:33 | NUR ---
RECEIVED PT INTUBATED 7.5 ETT SECURED AT 22CM AT THE LIP VIA ANCHOR FAST. PT IS ON AC MODE, TOLERATING VENT SETTINGS. BS CL/DM. VENT ALARMS SET AND AUDIBLE. AMBU BAG AT BEDSIDE. VENT PLUGGED INTO RED OUTLET. WILL CONTINUE TO MONITOR. Addendum: 01/28/18 at 2037 by JEIMY SANTOS RT Amended: Links added.
[2018-01-29] VITALS: BP 109/62
[2018-01-29] MEDS: METOCLOPRAMIDE HCL 10 MG TABLET GT SCH ×4 (03:02→20:14)
[2018-01-29 04:00] VITALS: BP 114/51
[2018-01-29] MEDS: VALPROIC ACID 250 MG/5 ML UDC GT SCH ×3 (05:16→20:14)
[2018-01-29] MEDS: JEVITY 1.2 CAL 1,000 ML BOTTLE GT PRN ×2 (06:39→22:06)
--- NOTE | 2018-01-29 07:30 | NUR ---
[facility] RN NOTE PATIENT RECEIVED IN BED ALERT TO NAME. PATIENT SHOWS NO S/S OF RESPIRATORY DISTRESS. HEELS ARE OFFLOADED AND PATIENT REPOSITIONED. PATIENT HANDS CHECKED FOR RESTRAINTS, HANDS WARM TO TOUCH CAP REFILL LESS THAN 3 SECONDS. PATIENT TOLERATING TUBE FEEDING. BED IN LOWEST LOCKED POSITION, SEMI FOWLERS. RN WILL CONTINUE TO MONITOR CLOSELY.
[2018-01-29 08:00] VITALS: BP 100/53
--- NOTE | 2018-01-29 08:12 | NUR ---
[facility]/RN NOTES: RECEIVED PT. FROM ICU AT ABOUT 2030 VIA BED. W/ JENNI # 8 W/ TPIECE W/ 6L COOL AEROSOL. NO S/S OF RESPIRATORY DISTRESS NOTED. NO S/S OF FACIAL GRIMACES OR MOANING NOTED. W/ GTF TOLERATING WELL W/ NO RESIDUAL NOTED. W/ SHERI. SOFT WRIST RESTRAINTS ON. RELEASED AND SKIN ASSESSMENT DONE. W/ F/C PATENT AND INTACT DRAINING YELLOW URINE. NON VERBAL. CALL LIGHT W/ REACH. INCONTINENT CARE RENDERED. WILL CONTINUE TO MONITOR.
[2018-01-29] MEDS: HYDROCORTISONE SOD SUCCINATE 100 MG/2 ML VIAL IV SCH ×3 (08:37→16:29)
[2018-01-29] MEDS: LEVETIRACETAM SOL (5 ML) 100 MG/ML UDC GT SCH ×2 (08:37→20:26)
[2018-01-29] MEDS: FLUCONAZOLE (100 MG) 100 MG TABLET PO SCH (08:37)
[2018-01-29] MEDS: PANTOPRAZOLE 40 MG/PACK PACK GT SCH (08:37)
[2018-01-29] MEDS: LamoTRIgine 100 MG TABLET GT SCH ×2 (08:37→20:25)
[2018-01-29] MEDS: Z GUARD REMEDY 2 OZ OINT TP SCH (08:44)
[2018-01-29] MEDS: CLOTRIMAZOLE 1% 15 GM TUBE TP SCH ×2 (08:44→16:29)
[2018-01-29 12:00] VITALS: BP 97/55
[2018-01-29 16:00] VITALS: BP 90/56
--- NOTE | 2018-01-29 19:15 | NUR ---
TELE/RN INITIAL NOTES RECEIVED PT IN BED, ALERT, NONVERBAL. WITH INTACT TRACH SHILEY#8 ON COOL AEROSOL TOLERATING WELL. NO SOB NOTED. SR ON TELEMONITOR. WITH ONGOING GTF JEVITY 1.2 AT 60 ML/HR, TOLERATING WELL. HOB ELEVATED. ANURADHA PICC LINE INTACT AND PATENT. F/C INTACT AND IN PLACED. SAFETY MEASURES AND ASPIRATION PRECAUTION IN PLACED. CALL LIGHT WITHIN EASY REACH. WILL CONT TO MONITOR
[2018-01-29 20:00] VITALS: BP 99/54
[2018-01-30] VITALS: BP_SYST 108; BP_SYST 99; BP_DIAS 54; BP_DIAS 67
[2018-01-30] MEDS: METOCLOPRAMIDE HCL 10 MG TABLET GT SCH ×3 (02:18→12:56)
[2018-01-30 04:00] VITALS: BP 118/72
[2018-01-30] MEDS: VALPROIC ACID 250 MG/5 ML UDC GT SCH ×2 (04:14→08:47)
--- NOTE | 2018-01-30 06:33 | NUR ---
RN NOTES PT REMAINED IN STABLE CONDITION. NO ACUTE CHANGES THROUGHOUT SHIFT. NO SEIZURE EPISODE NOTED. SAFETY MEASURES AND ASPIRATION PRECAUTION OBSERVED AT ALL TIMES. ALL NEEDS ANTICIPATED. WILL ENDORSE TO AM SHIFT RN FOR MASON
[2018-01-30 08:00] VITALS: BP_SYST 101; BP_SYST 106; BP_DIAS 57; BP_DIAS 71
--- NOTE | 2018-01-30 08:00 | NUR ---
RN NOTES RECEIVED PATIENT IN THE BED ON TRACHEA DEPENDENT MECHANICAL VENTILATOR, PATIENT AWAKE EYES IS OPEN, NON VERBAL, BUT MAKING GESTURES. PATIENT HAS NO ACUTE RESPIRATORY DISTRESS, V/S STABLE. PATIENT TELE SR-54. CHECKED G-TUBE PLACEMENT , AND RESIDUAL. JEVITY 1.2 FEEDING AT 65 ML/HR INTACT. ADMINISTERED MEDICATION VIA G-TUBE, . PATIENT HAS A PICC LINE ON RIGHT UPPER ARM INTACT. HOB KEEP ELEVATED. NEEDS ATTENDED AND ANTICIPATED, CALL LIGHT WITHIN TO REACH. PATIENT HAS A AIR MATTRESS. SAFETY PRECAUTION MAINTAINED ALL THE TIME.
[2018-01-30] MEDS: LEVETIRACETAM SOL (5 ML) 100 MG/ML UDC GT SCH (08:47)
[2018-01-30] MEDS: PANTOPRAZOLE 40 MG/PACK PACK GT SCH (08:47)
[2018-01-30] MEDS: FLUCONAZOLE (100 MG) 100 MG TABLET PO SCH (08:47)
[2018-01-30] MEDS: LamoTRIgine 100 MG TABLET GT SCH (08:47)
[2018-01-30] MEDS: Z GUARD REMEDY 2 OZ OINT TP SCH (08:50)
[2018-01-30] MEDS: CLOTRIMAZOLE 1% 15 GM TUBE TP SCH (10:13)
[2018-01-30] MEDS: HYDROCORTISONE SOD SUCCINATE 100 MG/2 ML VIAL IV SCH ×2 (10:13→12:56)
--- NOTE | 2018-01-30 11:34 | NUR ---
RN NOTES PATIENT GOING TO D/C [facility]. CONTINUED MONITORING.
[2018-01-30 12:00] VITALS: BP 103/55
[2018-01-30 16:00] VITALS: BP 97/53
--- NOTE | 2018-01-30 16:47 | NUR ---
DISCHARGE NOTES PATIENT DISCHARGE AT THIS TIME GOING [facility]. PATIENT HAS NO ACUTE RESPIRATORY DISTRESS. PATIENT STABLE ON TRACHEA DEPENDENT. V/S STABLE. MED RECONCILIATION AND DISCHARGE ORDER REVIEWED AND EXPLAINED TO. REPORT GIVEN SNF RN DECSTER . RN VERBALIZED UNDERSTANDING. PATIENT HAS NO BELONGING. PAPERWORK SIGNED WITH OTHER CO-WORKER RN NAME JAGDEEP. F/C DRAIN LIGHT YELLOW OUTPUT. PATIENT WILL FOLLOW SNF MUSIC LIBRARIAN. PICTURE TAKEN. PATIENT THRESHER BROOMCORN BY AMBULANCE.
== END 2018-01-30 16:40 | DRG 4 ==
LOC: ER 13:38 → ICU 14:37 → TELE-TD 01-28 19:59 → TELE1 01-28 20:10 → TELE-TD 01-28 23:01 → TELE1 01-29 18:04 → MEDSG1 01-30 13:29
PROVIDERS: ADMIT Internal Medicine Rheumatology; ATTEND Internal Medicine Rheumatology
PROC: 5A1945Z Respiratory Ventilation, 24-96 Consecutive Hours (ICD-10-PCS; 2018-01-10)
PROC: 0BH17EZ Insertion of Endotracheal Airway into Trachea, Via Natural or Artificial Opening (ICD-10-PCS; 2018-01-10)
PROC: 02HV33Z Insertion of Infusion Device into Superior Vena Cava, Percutaneous Approach (ICD-10-PCS; 2018-01-10)
PROC: B548ZZA Ultrasonography of Superior Vena Cava, Guidance (ICD-10-PCS; 2018-01-10)
PROC: 0B110F4 Bypass Trachea to Cutaneous with Tracheostomy Device, Open Approach (ICD-10-PCS; principal; 2018-01-16 15:00)
DX: A41.9 Sepsis, unspecified organism (principal); R65.21 Severe sepsis with septic shock; R57.1 Hypovolemic shock; J69.0 Pneumonitis due to inhalation of food and vomit; J96.01 Acute respiratory failure with hypoxia; E22.2 Syndrome of inappropriate secretion of antidiuretic hormone; Z99.11 Dependence on respirator [ventilator] status; G82.20 Paraplegia, unspecified; G93.40 Encephalopathy, unspecified; K56.7 Ileus, unspecified; J98.11 Atelectasis; B37.49 Other urogenital candidiasis; E23.2 Diabetes insipidus; E27.40 Unspecified adrenocortical insufficiency; F03.90 Unspecified dementia, unspecified severity, without behavioral disturbance, psychotic disturbance, mood disturbance, and anxiety; G40.909 Epilepsy, unspecified, not intractable, without status epilepticus; F41.9 Anxiety disorder, unspecified; R53.1 Weakness; K21.9 Gastro-esophageal reflux disease without esophagitis; Z87.01 Personal history of pneumonia (recurrent); R13.10 Dysphagia, unspecified; F29 Unspecified psychosis not due to a substance or known physiological condition; F32.9 Major depressive disorder, single episode, unspecified; N31.9 Neuromuscular dysfunction of bladder, unspecified; Z93.1 Gastrostomy status; Z98.2 Presence of cerebrospinal fluid drainage device; G20 Parkinson's disease; E78.5 Hyperlipidemia, unspecified; D64.9 Anemia, unspecified; E87.6 Hypokalemia; H52.4 Presbyopia; K52.9 Noninfective gastroenteritis and colitis, unspecified
CPT/HCPCS: 31720; 36415; 36569; 36600; 70450-TC; 71045-TC; 74018; 80048-TC; 80053-TC; 80076-TC; 80202-TC; 81000-TC; 82533; 82803-TC; 82962-TC; 83605-TC; 83735-TC; 83880; 83935-TC; 84100-TC; 84300-TC; 84484-TC; 85025-TC; 85610-TC; 85730-TC; 87040-TC; 87081-TC; 87086-TC; 89055; 90935-TC; 94002-TC; 94003-TC; 94640-TC; 94760-TC; 99082-TC; A4216; A4217; A4606; A7526; G0378; J0690; J1720; J1953; J1956; J2060; J2405; J2543; J2765; J3010; J3370; J3475; J3480; J3490; J7030; J7040; J7042; J7050; J7060; J8597; Q9963; Z7610

== ENCOUNTER 2018-09-10 11:42 | Inpatient (IN) | payer MEDICARE, MEDICAID ==
[2018-09-10] VITALS (13 sets, daily range): BP systolic 85–144; BP diastolic 50–82
[~2018-09-10] VITALS: Ht 172.7 cm; Wt 80.3 kg
--- NOTE | 2018-09-10 01:00 | NUR ---
ICU/RN HYPERTONIC SALINE COMPLETED.
[~2018-09-10 11:42] MED LIST changes: +LORA2VIA11 IM; -SIMV40TA5 PO; +VALP250S22 GT; +[UNRECOGNIZED DRUG - CODE] GT
--- NOTE | 2018-09-10 11:42 | NUR ---
PT BIB PA FROM [facility]ARE [facility] DUE TO ABNORMAL LABS, SODIUM 109, PT IS AAOX0, WITHDRAWS TO PAIN, NOT IN RESPIRATORY DISTRESS, HOOKED TO MONITOR, KEPT RESTED AND COMFORTABLE, WILL CONTINUE TO MONITOR.
--- NOTE | 2018-09-10 11:53 | NUR ---
SEEN AND EXAMINED BY DR. JUAREZ
--- NOTE | 2018-09-10 12:10 | NUR ---
DROSOPHERE OPERATOR AT BEDSIDE FOR XRAY.
[2018-09-10 12:15] LABS: BASOPHILS % (AUTO) 0.3 % (0.0-2.0); EOSINOPHILS % (AUTO) 3.1 % (0.0-6.0); HEMATOCRIT 34 % (39-51); LYMPHOCYTES # (AUTO) 1.8 /CMM (0.8-4.8); LYMPHOCYTES % (AUTO) 14.3 % (20.0-44.0); MEAN CORPUSCULAR HGB CONC 35 g/dl (31.0-36.0); MEAN CORPUSCULAR VOLUME 92 fL (80-96); MONOCYTES # (AUTO) 1.1 /CMM (0.1-1.30); MONOCYTES % (AUTO) 8.4 % (2.0-12.0); NEUTROPHILS # (AUTO) 9.2 /CMM (1.8-8.9); NEUTROPHILS % (AUTO) 73.9 % (43.0-81.0); PLATELET COUNT (AUTO) 228 /CMM (150-450); RED BLOOD CELL COUNT(AUTO) 3.73 MIL/uL (4.5-6.0); WHITE BLOOD COUNT (AUTO) 12.5 K/uL (4.3-11.0)
[2018-09-10 12:26] LABS: POTASSIUM 4.4 mmol/L (3.5-5.1)
[2018-09-10 12:33] LABS: ALANINE AMINOTRANSFERASE 20 U/L (12-78); ALBUMIN 3.2 g/dL (3.4-5.0); ALKALINE PHOSPHATASE 93 U/L (46-116); ASPARTATE AMINOTRANSFERASE 20 U/L (15-37); BILIRUBIN,DIRECT 0.1 mg/dL (0.0-0.2); BILIRUBIN,TOTAL 0.3 mg/dL (0.2-1.0); CALCIUM, SERUM 8.3 mg/dL (8.5-10.1); CREATININE 0.7 mg/dL (0.6-1.3); GLUCOSE 114 mg/dL (74-106); TOTAL PROTEIN, SERUM 7.5 g/dL (6.4-8.2); UREA NITROGEN, BLOOD 9 mg/dL (7-18)
[2018-09-10 12:46] LABS: CARBON DIOXIDE 27 mmol/L (21-32); CHLORIDE 76 mmol/L (98-107); SODIUM SERUM 111 mmol/L (136-145)
--- NOTE | 2018-09-10 12:55 | NUR ---
URINE SPECIMEN COLLECTED AND SENTR TO LAB.
[2018-09-10 12:56] LABS: APPEARANCE,URINE Cloudy (CLEAR); BILIRUBIN,URINE Negative (NEGATIVE); BLOOD, URINE Moderate Ery/uL (NEGATIVE); COLOR,URINE Yellow (YELLOW); KETONES,URINE Negative (NEGATIVE); LEUKOCYTE ESTERASE ,URINE Large (NEGATIVE); NITRITE, URINE Positive (NEGATIVE); PH,URINE 7.5 (5.0-8.0); PROTEIN,URINE 100 mg/dl (NEGATIVE); UGLUCOSE Negative (NEGATIVE); UROBILINOGEN,URINE 0.2 EU/dL (0.2)
[2018-09-10 13:00] LABS: WBC,URINE TOO NUMEROUS TO COUN /HPF (0-3)
[2018-09-10] MEDS ORDERED: FLUD0.1T GT (13:00)
[2018-09-10] MEDS ORDERED: CEFTRIAXONE 1 G in IV D5W 50 ML IV ONE (13:00)
[2018-09-10] MEDS ORDERED: ATOR10TA GT (13:00)
[2018-09-10] MEDS ORDERED: METO-295 PO (13:00)
[2018-09-10] MEDS ORDERED: ALBU2.5V13 IH (13:00)
[2018-09-10 13:01] LABS: BACTERIA,URINE Moderate /HPF (None Seen); SQUAMOUS EPITHELIAL CELL,UR Few /HPF (None Seen)
[2018-09-10] MEDS ORDERED: CEFTRIAXONE 1GM BAG (ER ONLY) 50 ML IV ONE (13:10)
--- NOTE | 2018-09-10 13:12 | NUR ---
CALLED NURSING SUP FOR TELE BED
[2018-09-10] MEDS ORDERED: IV NS 0.9% 1,000 ML BAG IV ONE (13:30)
--- NOTE | 2018-09-10 13:38 | NUR ---
ICU 256
--- NOTE | 2018-09-10 14:05 | NUR ---
REPORT GIVEN REPORT TO DOREEN EVANS FOR MASON.
--- NOTE | 2018-09-10 15:15 | NUR ---
ICU/RN: Pt received from ER, no distress noted; pt awake, unable to follow commands, non-verbal. Portex 7 on cool aerosol FiO2 28%. PEG in place, + placement. IV to R Wrist #18 flushed, awaiting 3%NS from Rx.
[2018-09-10] MEDS ORDERED: NA PHOS,M-B/NA PHOS,DI-BA 1 EA ENEMA RC PRN (17:00)
[2018-09-10] MEDS ORDERED: MAGNESIUM HYDROXIDE 30 ML UDC GT PRN (17:00)
[2018-09-10] MEDS ORDERED: HYDROCODONE/APAP 5/325MG 1 EACH TABLET PO PRN (17:00)
[2018-09-10] MEDS ORDERED: ONDANSETRON HCL/PF 4 MG/2 ML VIAL IVP PRN (17:00)
[2018-09-10] MEDS ORDERED: IV Sodium Chloride 3% 500 ML 500 ML IV PRN (17:00)
[2018-09-10] MEDS ORDERED: ALBUTEROL FS 2.5 MG/0.5 ML VIAL.NEB IH PRN (17:00)
[2018-09-10] MEDS ORDERED: ACETAMINOPHEN 650 MG/SUPP.RECT RC PRN (17:00)
[2018-09-10] MEDS ORDERED: BISACODYL SUPP (10 MG) 10 MG/SUPP.RECT SUPP.RECT RC PRN (17:00)
--- NOTE | 2018-09-10 18:00 | NUR ---
ICU/RN: Jomar Villa, LOBBY CONCIERGE at bedside for admission. Updated on pt status. Labs and CXR review; LOBBY CONCIERGE aware of CXR impressions indicating R IJ; however pt presents with AQUATIC CENTRE MANAGER shunt. Pt hard stick, requiring multiple IV attempts. FC inserted per order with slight hematuria noted. New orders noted and carried out.
[2018-09-10] MEDS: CARBIDOPA/LEVODOPA 25/100 MG 1 UDTAB GT SCH (18:25)
[2018-09-10] MEDS: CHOLECALCIFEROL 1,000 UNIT TABLET (VIT D3) GT SCH (18:25)
[2018-09-10] MEDS: METOCLOPRAMIDE HCL 10 MG TABLET PO SCH (18:25)
--- NOTE | 2018-09-10 19:45 | NUR ---
ICU NOTES RECEIVED PT ON COOL AEROSOL VIA TRACH AT 28%,OBTUNDED,EYES PARTIALLY OPEN,DOES NOT TRACK,DOES NOT FOLLOW COMMANDS.SUCTIONED FOR COPIOUS AMOUNT OF THIN-THICK CLEAR TO YELLOW SECRETIONS.URINE OUTPUT PINK-TINGED W/ LOTS OF SEDIMENTS.RECEIVING 3%NS AT 25ML/HR TILL 3AM ORDERED
[2018-09-10] MEDS: PRAMIPEXOLE DI-HCL 0.25 MG TABLET GT SCH (20:44)
[2018-09-10] MEDS: LamoTRIgine 100 MG TABLET GT SCH (20:44)
[2018-09-10] MEDS: LEVETIRACETAM SOL (5 ML) 100 MG/ML UDC GT SCH (20:44)
--- NOTE | 2018-09-10 22:00 | NUR ---
ICU NOTES SUCTIONED FOR SCANT AMT PALE YELLOW SECRETIONS.ORAL CARE DONE REPOSITION AFTER.
--- NOTE | 2018-09-10 22:00 | NUR ---
ICU/RN REPOSITION AND TURNED.SUCTIONED FOR SCANT PALE YELLOW SECRETIONS
[2018-09-11] VITALS (27 sets, daily range): BP systolic 83–157; BP diastolic 47–96
--- NOTE | 2018-09-11 | NUR ---
ICU NOTES INCONTINENT OF LARGE GRAINY BROWN STOOL,CLEANSED,COMPLETE BED BATH DONE AND TURNED.
[2018-09-11] MEDS: METOCLOPRAMIDE HCL 10 MG TABLET PO SCH ×5 (01:01→23:19)
[2018-09-11] MEDS: ATORVASTATIN 10 MG TABLET GT SCH ×2 (01:01→21:04)
[2018-09-11] MEDS: DOCUSATE SODIUM LIQ 100 MG/10 ML UDC GT SCH ×2 (01:01→21:04)
[2018-09-11 05:05] LABS: BASOPHILS % (AUTO) 0.2 % (0.0-2.0); EOSINOPHILS % (AUTO) 3.8 % (0.0-6.0); HEMATOCRIT 30 % (39-51); HEMOGLOBIN 10.9 g/dL (13.5-17.5); LYMPHOCYTES # (AUTO) 1.1 /CMM (0.8-4.8); LYMPHOCYTES % (AUTO) 10.8 % (20.0-44.0); MEAN CORPUSCULAR HGB CONC 36 g/dl (31.0-36.0); MEAN CORPUSCULAR VOLUME 92 fL (80-96); MONOCYTES # (AUTO) 0.8 /CMM (0.1-1.30); MONOCYTES % (AUTO) 7.5 % (2.0-12.0); NEUTROPHILS % (AUTO) 77.7 % (43.0-81.0); PLATELET COUNT (AUTO) 188 /CMM (150-450); RED BLOOD CELL COUNT(AUTO) 3.26 MIL/uL (4.5-6.0); WHITE BLOOD COUNT (AUTO) 10.2 K/uL (4.3-11.0)
[2018-09-11 05:21] LABS: ALBUMIN 2.7 g/dL (3.4-5.0); BILIRUBIN,TOTAL 0.3 mg/dL (0.2-1.0); CALCIUM, SERUM 7.9 mg/dL (8.5-10.1); CREATININE 0.5 mg/dL (0.6-1.3); MAGNESIUM 2.1 mg/dL (1.8-2.4); PHOSPHORUS 2.8 mg/dL (2.5-4.9); POTASSIUM 3.8 mmol/L (3.5-5.1); TOTAL PROTEIN, SERUM 6.5 g/dL (6.4-8.2)
[2018-09-11 05:32] LABS: THYROID STIMULATING HORMONE 1.865 uIU/mL (0.358-3.74); URIC ACID 1.6 mg/dL (2.6-7.2)
[2018-09-11] MEDS ORDERED: IV Sodium Chloride 3% 500 ML 500 ML IV PRN (07:00)
--- NOTE | 2018-09-11 07:15 | NUR ---
ICU/RN 3%NS AT 25 ML/HR ORDERED BY STACEY BLACK FOR SODIUM OF 117 FROM 111.REPORT AND CARE OF PT GIVEN TO BINH RN.
--- NOTE | 2018-09-11 07:18 | NUR ---
ICU NOTES DETAILED REPORT GIVEN TO BINH LOGAN.TOLERATING TUBE FEEDING WELL W/ MINIMAL RESIDUAL. Addendum: 09/11/18 at 0724 by МАРИЯ LORA RN WRONG PATIENT
--- NOTE | 2018-09-11 07:20 | NUR ---
STEAM AND GAS TURBINE ASSEMBLER INITIAL NOTES RECEIVED CHRONIC VENT PT ON TPIEC (O2 SET TO 5L AND AN FI02 AT 28%). PT TOLERATING SETTINGS WELL. NO SOB OR ACUTE SIGNS OF DISTRESS NOTED. BREATHING IS EVEN AND UNLABORED. PERIPHERAL IVS NOTED TO BE PATENT AND INTACT. NO REDNESS OR SIGNS OF INFILTRATION NOTED. PT RECEIVE 3% NS AT 25ML/HR AND TOLERATING WELL. GTUBE NOTED TO BE PATENT AND INTACT. PLACEMENT VERIFIED VIA AUSCULTATION. F/C NOTED TO BE INTACT AND DRAINING BLOOD TINGED URINE WITH SEDIMENT TO GRAVITY. BED IN LOW LOCKED POSITION, SIDE RAILS UP X2. WILL CONTINUE TO MONITOR
[2018-09-11] MEDS: CARBIDOPA/LEVODOPA 25/100 MG 1 UDTAB GT SCH ×3 (08:38→17:01)
[2018-09-11] MEDS: LEVETIRACETAM SOL (5 ML) 100 MG/ML UDC GT SCH ×2 (08:38→21:04)
[2018-09-11] MEDS: LamoTRIgine 100 MG TABLET GT SCH ×2 (08:38→21:04)
[2018-09-11] MEDS: PRAMIPEXOLE DI-HCL 0.25 MG TABLET GT SCH ×4 (08:38→21:04)
[2018-09-11] MEDS ORDERED: FLUDROCORTISONE 0.1 MG TABLET GT SCH (09:00)
[2018-09-11] MEDS ORDERED: IV Sodium Chloride 3% 500 ML 500 ML IV ONE (10:30)
--- NOTE | 2018-09-11 10:45 | NUR ---
SUPERVISOR SHOW OPERATIONS NOTES: MD ROUNDING (DR ORELLANA) MD AT BEDSIDE AND MADE AWARE OF PT'S CONDITION, VSS, AND LABS. VERBAL ORDERS OBTAINED TO FOR 50CC FREE FLUSH OF 0.9% NS TID VIA GTUBE
--- NOTE | 2018-09-11 10:55 | NUR ---
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 RECOMMENDATIONS MADE FOR SKIN CARE AND PROTECTION. DISCUSSED WITH NURSING STAFF. PT ON [facility] B[facility]. WILL SEE PRN. HENRY IN AGREEMENT WITH PLAN OF CARE. Addendum: 09/11/18 at 1056 by ESTHER BAHENA WNDNU Amended: Links added.
--- NOTE | 2018-09-11 11:40 | NUR ---
HEALTH SOCIAL WORK PROFESSOR NOTES: MD ROUNDING (DR TIAN) MD AT BEDSIDE AND UPDATED ON PT'S CONDITION AND RECENT LABS. ORDERS TO CONTINUE CURRENT MANAGEMENT AND INITIATE GTUBE FEEDINGS OBTAINED FROM
[2018-09-11] MEDS: CEFTRIAXONE 1 G in IV D5W 50 ML IV SCH (12:06)
[2018-09-11] MEDS ORDERED: IV NS 0.9% 250 ML IV PRN (12:30)
[2018-09-11] MEDS: JEVITY 1.2 CAL 1,000 ML BOTTLE GT PRN (16:59)
[2018-09-11] MEDS: CHOLECALCIFEROL 1,000 UNIT TABLET (VIT D3) GT SCH (17:00)
[2018-09-11] MEDS: FLUDROCORTISONE 0.1 MG TABLET GT SCH (17:00)
[2018-09-11] MEDS: Z GUARD REMEDY 2 OZ OINT TP PRN (17:01)
[2018-09-11] MEDS: CLOTRIMAZOLE 1% 15 GM TUBE TP SCH (17:01)
--- NOTE | 2018-09-11 19:05 | NUR ---
PARTS CONTROL CLERK CLOSING NOTES PT REMAINS IN STABLE CONDITION. ALL NEEDS MET DURING SHIFT AND ORDERS CARRIED OUT ACCORDINGLY. ALL DUE METS GIVEN PRN CAR E RENDERED. PT REPOSITIONED AND TURNED PER PROTOCOL. INVASIVE LINES REMAIN PATENT AND INTACT. PT CONTINUES TO RECEIVED 3% NS AT ORDERED RATE AND TOLERATING WELL. NIGHTSHIFT RN MADE AWARE THAT IT SHOULD ONLY BE RUN UNIT 2044 ORDERED. GTUBE REMAINS PATENT AND INTACT. PT TOLERATING FEEDINGS WELL. NO RESIDUALS ASPIRATED AT THIS TIME. HE CONTINUES TOLERATING T-PIECE AND CURRENT FIO2 SETTING WELL. ENDORSED TO NIGHTSHIFT RN FOR MASON
--- NOTE | 2018-09-11 19:49 | NUR ---
RN NOTE: RECEIVED PT IN BED, OBTUNDED WITH NO APPARENT DISTRESS NOTED. NO FACIAL GRIMACING OR ANY SIGNS OF PAIN NOTED. ON COOL AEROSOL, NO SOB NOTED. SATURATING WELL. SINUS RHYTHM ON BEDSIDE MONITOR HR 99BPM. GT INTACT AND PATENT WITH GTF JEVITY RUNNING AT 25ML/HR, TOLERATING WELL. NO RESIDUAL NOTED AT THIS TIME. IV ON RIGHT WRIST #18 AND LEFT ANTECUBITAL #20 INTACT AND PATENT, IVF INFUSING WELL. LAST CATH INTACT AND DRAINING WELL. KEPT CLEAN, DRY AND COMFORTABLE. SAFETY AND FALL PRECAUTIONS OBSERVED AND MAINTAINED. WILL CONTINUE TO MONITOR PT.
--- NOTE | 2018-09-11 20:45 | NUR ---
RN NOTE: 0.3% NS RUNNING AT 20ML/HR X 10HRS DC'D ORDERED. WILL CONTINUE TO MONITOR PT.
[2018-09-12] VITALS (25 sets, daily range): BP systolic 82–126; BP diastolic 50–75
[2018-09-12 05:03] LABS: BASOPHILS % (AUTO) 0.2 % (0.0-2.0); EOSINOPHILS % (AUTO) 4.5 % (0.0-6.0); HEMATOCRIT 33 % (39-51); HEMOGLOBIN 11.8 g/dL (13.5-17.5); LYMPHOCYTES # (AUTO) 1.6 /CMM (0.8-4.8); MEAN CORPUSCULAR HGB CONC 35 g/dl (31.0-36.0); MEAN CORPUSCULAR VOLUME 94 fL (80-96); MONOCYTES # (AUTO) 0.9 /CMM (0.1-1.30); MONOCYTES % (AUTO) 10.4 % (2.0-12.0); NEUTROPHILS % (AUTO) 66.9 % (43.0-81.0); PLATELET COUNT (AUTO) 190 /CMM (150-450); RED BLOOD CELL COUNT(AUTO) 3.55 MIL/uL (4.5-6.0)
[2018-09-12 05:09] LABS: CREATININE 0.6 mg/dL (0.6-1.3); MAGNESIUM 2.1 mg/dL (1.8-2.4); PHOSPHORUS 2.3 mg/dL (2.5-4.9); POTASSIUM 3.2 mmol/L (3.5-5.1)
[2018-09-12] MEDS: METOCLOPRAMIDE HCL 10 MG TABLET PO SCH ×3 (05:13→17:12)
--- NOTE | 2018-09-12 06:54 | NUR ---
RN NOTE: NO CHANGES NOTED THROUGHOUT THE SHIFT. NO APPARENT DISTRESS NOTED. NO FACIAL GRIMACING OR ANY SIGNS OF PAIN NOTED. ON COOL AEROSOL, NO SOB NOTED, SATURATING WELL. PT TOLERATED GTF WELL, INCREASED GTF RATE TO 45ML/HR, NO SIGNS/SYMPTOMS OF ASPIRATION NOTED. LAST CATH INTACT, DRAINED 530ML OF CLEAR YELLOW URINE OUTPUT. KEPT CLEAN, DRY AND COMFORTABLE. SAFETY AND FALL PRECAUTIONS OBSERVED AND MAINTAINED. WILL ENDORSE TO DAY SHIFT RN FOR CONTINUITY OF CARE.
--- NOTE | 2018-09-12 07:30 | NUR ---
MECHANICAL INSULATOR AM NOTES: RECEIVED PT IN BED, OBTUNDED WITH NO APPARENT DISTRESS NOTED. NO FACIAL GRIMACING OR ANY SIGNS OF PAIN NOTED. WITH PORTEX 7, ON COOL AEROSOL, NO SOB NOTED. SATURATING WELL. SINUS RHYTHM ON BEDSIDE MONITOR HR 74 BPM. GT INTACT AND PATENT WITH GTF JEVITY RUNNING AT 45ML/HR, TOLERATING WELL. 0 RESIDUAL IV ON RIGHT WRIST #18 AND LEFT ANTECUBITAL #20, FLUSHES WELL, BOTH SITES CLEAR. LAST CATH INTACT AND DRAINING WELL. KEPT CLEAN, DRY AND COMFORTABLE. SAFETY AND FALL PRECAUTIONS OBSERVED AND MAINTAINED. WILL CONTINUE TO MONITOR PT.
[2018-09-12] MEDS: FLUDROCORTISONE 0.1 MG TABLET GT SCH ×2 (08:51→17:12)
[2018-09-12] MEDS: LamoTRIgine 100 MG TABLET GT SCH ×2 (08:51→21:38)
[2018-09-12] MEDS: PRAMIPEXOLE DI-HCL 0.25 MG TABLET GT SCH ×4 (08:52→21:37)
[2018-09-12] MEDS: LEVETIRACETAM SOL (5 ML) 100 MG/ML UDC GT SCH ×2 (08:52→21:36)
[2018-09-12] MEDS: CARBIDOPA/LEVODOPA 25/100 MG 1 UDTAB GT SCH ×3 (08:57→17:12)
[2018-09-12] MEDS: CLOTRIMAZOLE 1% 15 GM TUBE TP SCH ×2 (08:59→17:13)
--- NOTE | 2018-09-12 09:30 | NUR ---
RN NOTES DUE MEDS GIVEN
[2018-09-12] MEDS ORDERED: IV Sodium Chloride 3% 500 ML 500 ML IV SCH (10:00)
[2018-09-12] MEDS: POTASSIUM CHLORIDE 20 MEQ POWDER PACKET GT SCH ×2 (10:42→11:45)
[2018-09-12] MEDS: CEFTRIAXONE 1 G in IV D5W 50 ML IV SCH (12:12)
[2018-09-12] MEDS ORDERED: NEUTRA PHOS 1 POWD.PACKET NG ONE (15:30)
[2018-09-12] MEDS: JEVITY 1.2 CAL 1,000 ML BOTTLE GT PRN (15:46)
[2018-09-12] MEDS: CHOLECALCIFEROL 1,000 UNIT TABLET (VIT D3) GT SCH (17:12)
--- NOTE | 2018-09-12 18:22 | NUR ---
SMELTING ENGINEER CLOSING NOTES: PT IN BED, MADE COMFORTABLE, OBTUNDED WITH NO APPARENT DISTRESS NOTED. NO FACIAL GRIMACING OR ANY SIGNS OF PAIN NOTED. WITH PORTEX 7, ON COOL AEROSOL, NO SOB NOTED. SATURATING WELL. SINUS RHYTHM ON BEDSIDE MONITOR HR 70s BPM. GT INTACT AND PATENT WITH GTF JEVITY RUNNING AT 55ML/HR, TOLERATING WELL. 0 RESIDUAL IV ON RIGHT WRIST #18 AND LEFT ANTECUBITAL #20, FLUSHES WELL, BOTH SITES CLEAR. LAST CATH INTACT AND DRAINING WELL. 1050ML TOTAL OUTPUT. KEPT CLEAN, DRY AND COMFORTABLE. TURNED AND REPOSITIONED Q 2HOURS. SUCTION PRN, PM CARE DONE. SAFETY AND FALL PRECAUTIONS OBSERVED AND MAINTAINED. ALL NEEDS MET. WILL ENDORSE TO NEXT SHIFT FOR MASON.
[2018-09-12] MEDS: DOCUSATE SODIUM LIQ 100 MG/10 ML UDC GT SCH (21:36)
[2018-09-12] MEDS: ATORVASTATIN 10 MG TABLET GT SCH (21:38)
[2018-09-13] VITALS (33 sets, daily range): BP systolic 85–154; BP diastolic 20–91
[2018-09-13] MEDS: METOCLOPRAMIDE HCL 10 MG TABLET PO SCH ×5 (00:48→23:59)
[2018-09-13 05:00] LABS: CALCIUM, SERUM 7.9 mg/dL (8.5-10.1); CREATININE 0.6 mg/dL (0.6-1.3); MAGNESIUM 1.9 mg/dL (1.8-2.4); POTASSIUM 3.4 mmol/L (3.5-5.1)
--- NOTE | 2018-09-13 05:48 | NUR ---
RN NOTES PATIENT IN BED, LYING COMFORTABLY WITH EYES OPEN. IN NO APPARENT DISTRESS, BREATHING EVEN AND UNLABORED. ON COOL MIST TOLERATING WELL. PATIENT IS ALERT, OPENS EYES WITHOUT EYE TRACKING, BUT ABLE TO COMMUNICATE AND SAY THANK YOU MOUTH WORDS. LAST CATHETER IN PLACE DRAINING CLEAR YELLOW WITH NO FOUL ODOR URINE. PEG TUBE PATENT AND INTACT. FEEDING WELL TOLERATED, NO RESIDUAL. NO PHYSICAL MANIFESTATION OF PAIN OR DISCOMFORT. NO SIGNIFICANT CHANGE OF CONDITION. NO BOWEL MOVEMENT. VITAL SIGNS WNL. KEPT CLEAN AND DRY. WILL ENDORSE TO NEXT SHIFT FOR CONTINUITY OF CARE.
--- NOTE | 2018-09-13 07:30 | NUR ---
VENDING MACHINE REFILLER INITIAL NOTE RECEIVED PATIENT AWAKE, NON-VERBAL. NO S/S OF PAIN OR DISCOMFORT. NO RESPIRATORY DISTRESS NOTED. ON C/A 28%, 5LPM. SKIN WARM AND DRY TO TOUCH. ON TELE MONITOR SR. GT PATENT, INTACT, IN PLACE, NO RESIDUAL NOTED. F/C PATENT, INTACT, IN PLACE, DRAINING BY GRAVITY. HOB ELEVATED. TURNED AND REPOSITIONED. BED KEPT AT LOWEST POSITION. WILL CONTINUE TO MONITOR.
[2018-09-13] MEDS: PRAMIPEXOLE DI-HCL 0.25 MG TABLET GT SCH ×4 (09:13→21:09)
[2018-09-13] MEDS: CLOTRIMAZOLE 1% 15 GM TUBE TP SCH ×2 (09:14→17:47)
[2018-09-13] MEDS: CARBIDOPA/LEVODOPA 25/100 MG 1 UDTAB GT SCH ×3 (09:14→17:46)
[2018-09-13] MEDS: LEVETIRACETAM SOL (5 ML) 100 MG/ML UDC GT SCH ×2 (09:14→21:06)
[2018-09-13] MEDS: LamoTRIgine 100 MG TABLET GT SCH ×2 (09:14→21:06)
[2018-09-13] MEDS: FLUDROCORTISONE 0.1 MG TABLET GT SCH ×2 (09:14→17:46)
[2018-09-13] MEDS ORDERED: POTASSIUM CHLORIDE 20 MEQ POWDER PACKET NG SCH ×2 (09:30→13:30)
--- NOTE | 2018-09-13 09:30 | NUR ---
COMMUNICATION ENGINEER NOTE SEEN AND EXAMINED BY DR. ABRAHAM
[2018-09-13] MEDS: CEFTRIAXONE 1 G in IV D5W 50 ML IV SCH (12:58)
[2018-09-13] MEDS: JEVITY 1.2 CAL 1,000 ML BOTTLE GT PRN (14:33)
[2018-09-13] MEDS: CHOLECALCIFEROL 1,000 UNIT TABLET (VIT D3) GT SCH (17:46)
--- NOTE | 2018-09-13 19:09 | NUR ---
ARTIST SUSPECT CLOSING NOTE NO SIGNIFICANT CHANGES. NO RESPIRATORY DISTRESS NOTED. TOLERATING C/A. GT PATENT, INTACT, IN PLACE. TOLERATED GTF. F/C PATENT, INTACT, DRAINING BY GRAVITY. KEPT CLEAN AND DRY. ALL DUE MEDS GIVEN. SIDE RAILS UP AND LOCKED. BED KEPT AT LOWEST POSITION. CONTINUITY OF CARE ENDORSED TO PM NURSE.
--- NOTE | 2018-09-13 19:30 | NUR ---
POURED PIPE MAKER INITIAL SHIFT NOTES RECEIVED REPORT FROM DAY SHIFT NURSE. PATIENT IN BED, AWAKE, ALERT X1 TO SELF, ABLE TO NOD YES/NO TO SIMPLE QUESTIONS. TRACH MIDLINE AND INTACT, FIO2 @ 28%, TOLERATING WELL SPO2 WNL. TUBE FEEDING ONGOING AT PRESCRIBED RATE, TOLERATING WELL, MINIMAL GASTRIC RESIDUALS NOTED. LAST CATHETER DRAINING CLEAR YELLOW URINE VIA GRAVITY. PERIPHERAL LINE X2, RW #18G, LEFT AC #20G, BOTH PATENT AND INTACT, FLUSHED WITH NS, SITES FREE FROM ANY S/S OF INFILTRATION OR PHLEBITIS. WILL CONTINUE TO CLOSELY MONITOR
[2018-09-13] MEDS: ATORVASTATIN 10 MG TABLET GT SCH (21:06)
[2018-09-13] MEDS: DOCUSATE SODIUM LIQ 100 MG/10 ML UDC GT SCH (21:06)
[2018-09-14] VITALS (43 sets, daily range): BP systolic 90–146; BP diastolic 49–93
--- NOTE | 2018-09-14 04:13 | NUR ---
RT NOTES TRACH TUBE IN PLACE, PATENT, AND SECURED WITH TRACH TIE. BILATERAL BREATH SOUNDS WITH EQUAL CHEST RISE. ALARMS ON AND AUDIBLE. AMBU BAG BY THE BEDSIDE. VENT PLUGGED IN TO RED OUTLET. SX SMALL THICK PALE YELLOW SECRETIONS. NO SOB NOTED AT THIS TIME. TRACH CARE PERFORMED. WILL CONTINUE TO MONITOR. Addendum: 09/14/18 at 0414 by ROSALIE ORTIZ RT Amended: Links added.
[2018-09-14 05:01] LABS: BASOPHILS # (AUTO) 0.1 /CMM (0.0-0.2); BASOPHILS % (AUTO) 0.6 % (0.0-2.0); EOSINOPHILS % (AUTO) 8.1 % (0.0-6.0); HEMATOCRIT 33 % (39-51); HEMOGLOBIN 11.7 g/dL (13.5-17.5); LYMPHOCYTES # (AUTO) 1.2 /CMM (0.8-4.8); LYMPHOCYTES % (AUTO) 14.1 % (20.0-44.0); MEAN CORPUSCULAR HGB CONC 35 g/dl (31.0-36.0); MEAN CORPUSCULAR VOLUME 93 fL (80-96); MONOCYTES # (AUTO) 0.7 /CMM (0.1-1.30); MONOCYTES % (AUTO) 8.1 % (2.0-12.0); NEUTROPHILS # (AUTO) 6.1 /CMM (1.8-8.9); NEUTROPHILS % (AUTO) 69.1 % (43.0-81.0); PLATELET COUNT (AUTO) 254 /CMM (150-450); RED BLOOD CELL COUNT(AUTO) 3.55 MIL/uL (4.5-6.0); WHITE BLOOD COUNT (AUTO) 8.8 K/uL (4.3-11.0)
[2018-09-14 05:12] LABS: CALCIUM, SERUM 8.4 mg/dL (8.5-10.1); CREATININE 0.6 mg/dL (0.6-1.3); MAGNESIUM 2.1 mg/dL (1.8-2.4); PHOSPHORUS 4.7 mg/dL (2.5-4.9); POTASSIUM 3.4 mmol/L (3.5-5.1)
[2018-09-14] MEDS: METOCLOPRAMIDE HCL 10 MG TABLET PO SCH ×4 (06:02→23:52)
[2018-09-14] MEDS: JEVITY 1.2 CAL 1,000 ML BOTTLE GT PRN ×2 (06:03→22:56)
--- NOTE | 2018-09-14 08:00 | NUR ---
SPECIAL EDUCATION TEACHERS INITIAL NOTE RECEIVED PATIENT AWAKE, NON-VERBAL. NO S/S OF PAIN OR DISCOMFORT. NO RESPIRATORY DISTRESS NOTED. ON C/A 28%, 5LPM. TRACH C/D/I. SKIN WARM AND DRY TO TOUCH. ON TELE MONITOR SR. GT PATENT, INTACT, IN PLACE, NO RESIDUAL NOTED. F/C PATENT, INTACT, IN PLACE, DRAINING BY GRAVITY. HOB ELEVATED. TURNED AND REPOSITIONED. BED KEPT AT LOWEST POSITION. WILL CONTINUE TO MONITOR.
[2018-09-14] MEDS: FLUDROCORTISONE 0.1 MG TABLET GT SCH ×2 (08:30→16:57)
[2018-09-14] MEDS: LamoTRIgine 100 MG TABLET GT SCH ×2 (08:30→21:07)
[2018-09-14] MEDS: PRAMIPEXOLE DI-HCL 0.25 MG TABLET GT SCH ×4 (08:30→21:10)
[2018-09-14] MEDS: CLOTRIMAZOLE 1% 15 GM TUBE TP SCH ×2 (08:30→17:02)
[2018-09-14] MEDS: LEVETIRACETAM SOL (5 ML) 100 MG/ML UDC GT SCH ×2 (08:30→21:07)
[2018-09-14] MEDS: CARBIDOPA/LEVODOPA 25/100 MG 1 UDTAB GT SCH ×3 (08:30→16:57)
[2018-09-14] MEDS ORDERED: POTASSIUM CHLORIDE 20 MEQ TAB.PRT.SR PO SCH (10:00)
[2018-09-14] MEDS: CEFTRIAXONE 1 G in IV D5W 50 ML IV SCH (12:46)
[2018-09-14] MEDS ORDERED: POTASSIUM CHLORIDE 20 MEQ POWDER PACKET GT ONE (13:00)
[2018-09-14] MEDS: ENOXAPARIN SODIUM 40 MG/0.4 ML DISP.SYRIN SQ SCH (16:00)
[2018-09-14] MEDS: CHOLECALCIFEROL 1,000 UNIT TABLET (VIT D3) GT SCH (17:02)
--- NOTE | 2018-09-14 19:38 | NUR ---
RN NOTE RECEIVED PATIENT IN BED, RESTRAINTS ON FOR SAFETY, ONGOING G-TUBE FEEDING, NO RESPIRATORY DISTRESS NOTED, LETHARGIC, BP 87/64, BED IN THE LOWEST POSITION, ALL SAFETY MEASURES TAKEN, WILL CONTINUE TO MONITOR PATIENT Addendum: 09/15/18 at 0408 by LUCIA WINTERS RN WRONG PATIENT
--- NOTE | 2018-09-14 19:48 | NUR ---
VETERANS EMPLOYMENT REPRESENTATIVE CLOSING NOTE NO SIGNIFICANT CHANGES. NO RESPIRATORY DISTRESS NOTED. TOLERATING C/A. GT PATENT, INTACT, IN PLACE. TOLERATED GTF. F/C PATENT, INTACT, DRAINING BY GRAVITY. KEPT CLEAN AND DRY. ALL DUE MEDS GIVEN. SIDE RAILS UP AND LOCKED. BED KEPT AT LOWEST POSITION. CONTINUITY OF CARE ENDORSED TO PM NURSE.
[2018-09-14] MEDS: ATORVASTATIN 10 MG TABLET GT SCH (21:07)
[2018-09-14] MEDS: DOCUSATE SODIUM LIQ 100 MG/10 ML UDC GT SCH (21:07)
[2018-09-15] VITALS (28 sets, daily range): BP systolic 90–141; BP diastolic 34–97
[2018-09-15 04:52] LABS: BASOPHILS # (AUTO) 0.1 /CMM (0.0-0.2); BASOPHILS % (AUTO) 0.8 % (0.0-2.0); EOSINOPHILS % (AUTO) 9.7 % (0.0-6.0); HEMATOCRIT 30 % (39-51); HEMOGLOBIN 10.7 g/dL (13.5-17.5); LYMPHOCYTES # (AUTO) 1.3 /CMM (0.8-4.8); LYMPHOCYTES % (AUTO) 15.2 % (20.0-44.0); MEAN CORPUSCULAR HGB CONC 35 g/dl (31.0-36.0); MEAN CORPUSCULAR VOLUME 95 fL (80-96); MONOCYTES # (AUTO) 0.8 /CMM (0.1-1.30); MONOCYTES % (AUTO) 9.2 % (2.0-12.0); NEUTROPHILS # (AUTO) 5.4 /CMM (1.8-8.9); NEUTROPHILS % (AUTO) 65.1 % (43.0-81.0); PLATELET COUNT (AUTO) 245 /CMM (150-450); WHITE BLOOD COUNT (AUTO) 8.3 K/uL (4.3-11.0)
[2018-09-15 05:09] LABS: CALCIUM, SERUM 8.2 mg/dL (8.5-10.1); CREATININE 0.6 mg/dL (0.6-1.3); MAGNESIUM 2.2 mg/dL (1.8-2.4); PHOSPHORUS 4.6 mg/dL (2.5-4.9); POTASSIUM 3.7 mmol/L (3.5-5.1)
[2018-09-15] MEDS: METOCLOPRAMIDE HCL 10 MG TABLET PO SCH ×3 (06:08→17:03)
--- NOTE | 2018-09-15 06:58 | NUR ---
RN NOTE NO SIGNIFICANT CHANGE BOTED, NO RESPIRATORY DISTRESS NOTED, NO PAIN OR DISCOMFORT NOTED, TOLERATES TUBE FEEDING WELL, ALL SAFETY MEASURES TAKEN
--- NOTE | 2018-09-15 07:15 | NUR ---
RN INITIAL NOTES RECEIVED PT AWAKE, A/OX1. TRACH IN PLACE, ON T-PIECE. NO RESPIRATORY DISTRESS NOTED. NO SOB NOTED. NO SIGNS OF PAIN NOTED. HOB ELEVATED. GT IN PLACE. TOLERATING GTF WELL. IV LINES IN PLACE. FC IN PLACE. NO HEMATURIA NOTED. PT COMFORTABLE. BLE ELEVATED. WILL MONITOR
[2018-09-15] MEDS: LamoTRIgine 100 MG TABLET GT SCH ×2 (08:10→21:15)
[2018-09-15] MEDS: CARBIDOPA/LEVODOPA 25/100 MG 1 UDTAB GT SCH ×3 (08:10→17:03)
[2018-09-15] MEDS: PRAMIPEXOLE DI-HCL 0.25 MG TABLET GT SCH ×4 (08:10→21:16)
[2018-09-15] MEDS: FLUDROCORTISONE 0.1 MG TABLET GT SCH ×2 (08:10→17:03)
[2018-09-15] MEDS: LEVETIRACETAM SOL (5 ML) 100 MG/ML UDC GT SCH ×2 (08:11→21:17)
[2018-09-15] MEDS: CLOTRIMAZOLE 1% 15 GM TUBE TP SCH ×2 (08:11→17:03)
--- NOTE | 2018-09-15 09:00 | NUR ---
RN NOTES SEEN AND EXAMINED BY DR GARNER. PT ON T-PIECE. NO SOB NOTED. NO RESPIRATORY DISTRESS NOTED. MD CLEARED PT FOR DOWNGRADE. WILL MONITOR
[2018-09-15] MEDS: CEFTRIAXONE 1 G in IV D5W 50 ML IV SCH (12:11)
[2018-09-15] MEDS: JEVITY 1.2 CAL 1,000 ML BOTTLE GT PRN (14:58)
--- NOTE | 2018-09-15 15:00 | NUR ---
RN NOTES SEEN AND EXAMINED BY TREVOR FOSTER NP. AWARE OF LAB VALUES AND LATEST CXR RESULT. PT ON T-PIECE. NO SOB NOTED. DENIES ANY PAIN. TOLERATING GTF WELL. WILL MONITOR
[2018-09-15] MEDS: CHOLECALCIFEROL 1,000 UNIT TABLET (VIT D3) GT SCH (17:03)
--- NOTE | 2018-09-15 18:30 | NUR ---
RN NOTES PT TRANSFERRED TO ROOM 104. PT A/OX1. ON T-PIECE. NO SOB NOTED. NO SIGNS OF PAIN NOTED. VS WNL. BEDSIDE REPORT GIVEN TO JEFFERSON,RN TOOK OVER PT'S CARE. PT IN STABLE CONDITION
--- NOTE | 2018-09-15 18:48 | NUR ---
TD RN NOTES RECEIVED PT FROM ICU TO ROOM 104, ARRIVED AT THE UNIT AT 1830; REPORT GIVEN BY TAI. PT AWAKE, A/O X1-2. PT ABLE TO MOUTHS WORDS AND ANSWER BY NODDING WITH YES OR NO. PT HAS TRACH PORTEX #7, ON T-PIECE AT 5L, WITH NO ACUTE RESPIRATORY DISTRESS NOTED. OXYGEN SATURATION AT 100%. VS TAKEN BP 95/74, RR 19, T 98.0. PT ON TELEMONITORING WITH SR, HR OF 69. PT PIV TO LAC G20 SL AND RIGHT WRIST G18 SL, BOTH FLUSHED WITH NS, INTACT AND OPERATIONAL. HOB KEPT ELEVATED. ON GOING JEVITY 1.2 65 ML/HR RUNNING WITH NO RESUDUAL PRESENT. PT HAS FC WITH YELLOWISH URINE IN THE BAG. PT KEPT COMFORTABLE. PT'S BED IN LOWEST, LOCKED POSITION WITH SR X3. CALL LIGHT KEPT WITHIN REACH. WILL ENDORSE TO INCOMING NIGHT NURSE FOR MASON.
[2018-09-15] MEDS: ENOXAPARIN SODIUM 40 MG/0.4 ML DISP.SYRIN SQ SCH (21:15)
[2018-09-15] MEDS: ATORVASTATIN 10 MG TABLET GT SCH (21:17)
[2018-09-15] MEDS: DOCUSATE SODIUM LIQ 100 MG/10 ML UDC GT SCH (21:18)
[2018-09-16] VITALS: BP 97/55
[2018-09-16] MEDS: METOCLOPRAMIDE HCL 10 MG TABLET PO SCH ×3 (01:06→12:29)
[2018-09-16 04:00] VITALS: BP 97/62
[2018-09-16] MEDS: JEVITY 1.2 CAL 1,000 ML BOTTLE GT PRN (05:54)
[2018-09-16 06:33] LABS: BASOPHILS % (AUTO) 0.5 % (0.0-2.0); EOSINOPHILS % (AUTO) 10.8 % (0.0-6.0); HEMATOCRIT 29 % (39-51); LYMPHOCYTES # (AUTO) 1.7 /CMM (0.8-4.8); LYMPHOCYTES % (AUTO) 21.9 % (20.0-44.0); MEAN CORPUSCULAR HGB CONC 35 g/dl (31.0-36.0); MEAN CORPUSCULAR VOLUME 94 fL (80-96); MONOCYTES # (AUTO) 0.7 /CMM (0.1-1.30); MONOCYTES % (AUTO) 8.9 % (2.0-12.0); NEUTROPHILS # (AUTO) 4.5 /CMM (1.8-8.9); NEUTROPHILS % (AUTO) 57.9 % (43.0-81.0); PLATELET COUNT (AUTO) 276 /CMM (150-450); RED BLOOD CELL COUNT(AUTO) 3.01 MIL/uL (4.5-6.0); WHITE BLOOD COUNT (AUTO) 7.7 K/uL (4.3-11.0)
[2018-09-16 06:34] LABS: CALCIUM, SERUM 8.8 mg/dL (8.5-10.1); CREATININE 0.6 mg/dL (0.6-1.3); MAGNESIUM 2.3 mg/dL (1.8-2.4); PHOSPHORUS 4.7 mg/dL (2.5-4.9); POTASSIUM 3.7 mmol/L (3.5-5.1)
--- NOTE | 2018-09-16 06:50 | NUR ---
RN NOTE NO ACUTE CHANGES DURING MY SHIFT, PATIENT REMAINED STABLE, SEIZURE PRECAUTIONS TAKEN, NO RESPIRATORY DISTRESS NOTED, FREE NS 0.9% FLUSHES PROVIDED VIA GT PER MD ORDER, ALL SAFETY MEASURES TAKEN
--- NOTE | 2018-09-16 07:15 | NUR ---
RN INITIAL NOTES PATIENT IN BED, AWAKE. MOUTHS WORDS, NODS YES OR NO. ABLE TO UNDERSTAND CONCEPTS. ON TRACH, COOL AEROSOL. NO COMPLAINS OF ANY SOB NOR PAIN AT THIS TIME. ON TELE MONITOR, SR. HAS A LAST CATH WITH CLEAR AND YELLOW URINE. ON GTF, AT 65 ML/HR. NO RESIDUAL NOTED. HAS AN ORDER TO FLUSH NS Q8H ON GT FOR HYPONATREMIA. HAS A LEFT AC #20 SL. AND RIGHT WRIST #19 SL. BED LOCKED AND IN LOW POSITION. CALL LIGHT WITHIN REACH. WILL CONTINUE TO MONITOR
[2018-09-16 08:00] VITALS: BP 120/67
[2018-09-16] MEDS: LamoTRIgine 100 MG TABLET GT SCH (08:32)
[2018-09-16] MEDS: PRAMIPEXOLE DI-HCL 0.25 MG TABLET GT SCH ×2 (08:32→12:29)
[2018-09-16] MEDS: CARBIDOPA/LEVODOPA 25/100 MG 1 UDTAB GT SCH ×2 (08:32→12:29)
[2018-09-16] MEDS: LEVETIRACETAM SOL (5 ML) 100 MG/ML UDC GT SCH (08:32)
[2018-09-16] MEDS: FLUDROCORTISONE 0.1 MG TABLET GT SCH (08:32)
[2018-09-16] MEDS: Z GUARD REMEDY 2 OZ OINT TP PRN (08:41)
[2018-09-16] MEDS: CLOTRIMAZOLE 1% 15 GM TUBE TP SCH (08:41)
[2018-09-16] MEDS ORDERED: CEFT1VIA15 IV (11:05)
[2018-09-16] MEDS: CEFTRIAXONE 1 G in IV D5W 50 ML IV SCH (12:29)
--- NOTE | 2018-09-16 13:04 | NUR ---
DOREEN NOTES TREVOR AT BEDSIDE. PATIENT WILL BE DC AT 1430 SHIP OFFICER TIME. ON HOLD AT THIS TIME TO GIVE REPORT AT [facility]. NO FAMILY TO CALL FOR UPDATES. WILL TAKE PICTURES LATER BEFORE DC Addendum: 09/16/18 at 1316 by DALLAS BUTLER RN TALKED TO DOREEN JEROME FOR REPORT
--- NOTE | 2018-09-16 14:55 | NUR ---
MALTED MILK MIXER NOTES AMBULANCE PERSONNEL AT BEDSIDE. REPORT GIVEN. WOUND PICTURES TAKEN IN CHART. BELONGINGS LIST SIGNED. PATIENT AWARE AND MOUTHS WORDS. NO FAMILY TO CALL. REPORT GIVEN TO [facility]
== END 2018-09-16 15:10 | DRG 643 ==
LOC: ER 11:47 → ICU 14:58 → TELE-TD 09-15 18:17 → MEDSG1 09-16 09:18
PROVIDERS: ADMIT Hospitalist; ATTEND Nurse Practitioner Acute Care
DX: E27.40 Unspecified adrenocortical insufficiency (principal); G93.41 Metabolic encephalopathy; E87.1 Hypo-osmolality and hyponatremia; J96.10 Chronic respiratory failure, unspecified whether with hypoxia or hypercapnia; N39.0 Urinary tract infection, site not specified; E44.1 Mild protein-calorie malnutrition; D68.59 Other primary thrombophilia; J98.11 Atelectasis; G82.20 Paraplegia, unspecified; Z93.0 Tracheostomy status; R13.10 Dysphagia, unspecified; Z93.1 Gastrostomy status; Z98.2 Presence of cerebrospinal fluid drainage device; G20 Parkinson's disease; G40.909 Epilepsy, unspecified, not intractable, without status epilepticus; F29 Unspecified psychosis not due to a substance or known physiological condition; K21.9 Gastro-esophageal reflux disease without esophagitis; D64.9 Anemia, unspecified; E78.5 Hyperlipidemia, unspecified; F41.9 Anxiety disorder, unspecified; F31.9 Bipolar disorder, unspecified; F20.9 Schizophrenia, unspecified; D72.829 Elevated white blood cell count, unspecified; Z74.01 Bed confinement status; N31.9 Neuromuscular dysfunction of bladder, unspecified; Z68.26 Body mass index [BMI] 26.0-26.9, adult; F03.90 Unspecified dementia, unspecified severity, without behavioral disturbance, psychotic disturbance, mood disturbance, and anxiety; E86.1 Hypovolemia
CPT/HCPCS: 31720; 36415; 36600; 71045-TC; 80048-TC; 80053-TC; 80061-TC; 80076-TC; 80164-TC; 81000-TC; 82803-TC; 83605-TC; 83735-TC; 83935-TC; 84100-TC; 84300-TC; 84439-TC; 84443-TC; 84484-TC; 84550-TC; 85025-TC; 85730-TC; 87040-TC; 87070-TC; 87081-TC; 87086-TC; 87186-TC; 94640-TC; A4623; G0378; J0696; J1650; J1953; J3490; J7030; J7050; J7060; J8597

== ENCOUNTER 2024-11-06 11:53 | Inpatient (IN) | payer MEDICARE, OTHER ==
[~2024-11-06] VITALS: Ht 167.6 cm; Wt 71.4 kg
[~2024-11-06 11:53] MED LIST changes: +ALBU2.5V13 IH; +ATOR10TA GT; +CEFT1VIA15 IV; +FLUD0.1T GT; -LORA2VIA11 IM; +METO-295 PO; -VALP250S22 GT
[2024-11-06 13:06] LABS: PLATELET COUNT (AUTO) 218 K/uL (150-450); RED BLOOD CELL COUNT(AUTO) 3.21 MIL/uL (4.5-6.0); RED CELL DISTRIBUTION WIDTH 13.7 % (11.5-15.0); WHITE BLOOD COUNT (AUTO) 5.7 K/uL (4.3-11.0)
[2024-11-06] MEDS ORDERED: PIPERACI/TAZO 3.375GM/D5W 50ML PB IV ONE (13:06)
[2024-11-06] MEDS ORDERED: VANCOMYCIN 1 GM /D5W 250 ML PB IV ONE (13:06)
[2024-11-06] MEDS: IV NS 0.9% 1,000 ML BAG IV ONE (13:12)
[2024-11-06] MEDS: PIPERACILLIN /TAZOBACTAM 3.375 G in IV D5W 50 ML IV ONE (13:12)
[2024-11-06 13:17] LABS: CALCIUM, SERUM 8.4 mg/dL (8.5-10.1); CREATININE 0.6 mg/dL (0.6-1.3); SODIUM SERUM 138.0 mmol/L (136-145); UREA NITROGEN, BLOOD 20.0 mg/dL (7-18)
[2024-11-06] MEDS ORDERED: [UNRECOGNIZED DRUG - CODE] IM (13:20)
[2024-11-06] MEDS ORDERED: AMIN30LI66 GT (13:20)
[2024-11-06] MEDS ORDERED: LACO10SO GT (13:20)
[2024-11-06] MEDS ORDERED: CLOT15CR27 TP (13:20)
[2024-11-06] MEDS ORDERED: POLY15DR31 EACHEYE (13:20)
[2024-11-06] MEDS ORDERED: CRAN3875 GT (13:20)
[2024-11-06] MEDS ORDERED: GEMF600T90 GT (13:20)
[2024-11-06] MEDS ORDERED: ZINC56.713 TP (13:20)
[2024-11-06] MEDS ORDERED: PHEN50TA4 PO (13:20)
[2024-11-06] MEDS ORDERED: HYDR200T81 GT (13:20)
[2024-11-06] MEDS ORDERED: SODI100037 GT (13:20)
[2024-11-06] MEDS ORDERED: VITS42.53 TP (13:20)
[2024-11-06] MEDS ORDERED: LACT-96 GT (13:20)
[2024-11-06] MEDS ORDERED: ASPI-1169 GT (13:20)
[2024-11-06] MEDS ORDERED: FERR220S2 GT (13:20)
[2024-11-06 13:23] LABS: ASPARTATE AMINOTRANSFERASE 69.0 U/L (15-37); TOTAL PROTEIN, SERUM 8.3 g/dL (6.4-8.2)
[2024-11-06 13:25] LABS: INR 1.07 (0.91-1.10)
[2024-11-06 13:27] LABS: LACTIC ACID 1.1 mmol/L (0.4-2.0)
[2024-11-06] MEDS: VANCOMYCIN 1 GM in IV D5W 250 ML IV ONE (13:50)
[2024-11-06] MEDS ORDERED: MAGNESIUM HYDROXIDE 30 ML UDC GT PRN (15:30)
[2024-11-06] MEDS ORDERED: ACETAMINOPHEN 325 MG TABLET PO PRN (15:30)
[2024-11-06] MEDS ORDERED: MAG HYDROX/AL HYDROX/SIMETH 30 ML UDC PO PRN (15:30)
[2024-11-06] MEDS ORDERED: ONDANSETRON HCL/PF 4 MG/2 ML VIAL IVP PRN (15:30)
[2024-11-06] MEDS ORDERED: Z GUARD REMEDY 4 OZ OINT TP PRN (15:30)
[2024-11-06] MEDS ORDERED: NA PHOS,M-B/NA PHOS,DI-BA 1 EA ENEMA RC PRN (15:30)
[2024-11-06] MEDS ORDERED: DOSING PER PHARMACY-ZOSYN IV 1 EA EA XX PRN (15:30)
[2024-11-06] MEDS ORDERED: MIDAZOLAM IM PRN (15:30)
[2024-11-06] MEDS ORDERED: MAGNESIUM HYDROXIDE 30 ML UDC PO PRN (15:30)
[2024-11-06] MEDS ORDERED: JEVITY 1.5 CAL LIQUID 1,000 ML BOTTLE GT SCH (15:30)
[2024-11-06] MEDS ORDERED: DOSING PER PHARMACY-VANCOMYCIN IV XX PRN (15:30)
[2024-11-06] MEDS ORDERED: ZOLPIDEM TARTRATE 5 MG TABLET PO PRN (15:30)
[2024-11-06] MEDS ORDERED: BISACODYL SUPP (10 MG) 10 MG/SUPP.RECT SUPP.RECT RC PRN (15:30)
[2024-11-06 16:47] LABS: APPEARANCE,URINE CLOUDY (CLEAR); BLOOD, URINE 2+ Ery/uL (NEGATIVE); LEUKOCYTE ESTERASE ,URINE 3+ (NEGATIVE); NITRITE, URINE POSITIVE (NEGATIVE); UGLUCOSE NEGATIVE (NEGATIVE)
[2024-11-06 16:58] LABS: ADD URINE CULTURE YES
[2024-11-06] MEDS ORDERED: Medication Not On Formulary EA (Cran/Vitc/Mannose/Inulin/Brom (Uti-Stat Liquid) 30 ML) GT SCH (17:00)
[2024-11-06 17:01] LABS: URINE AMORPHOUS PHOSPHATES Moderate /HPF (None Seen)
[2024-11-06 18:02] VITALS: O2SAT 98
[2024-11-06] MEDS: PHENYTOIN 50 MG TAB.CHEW PO SCH (18:03)
[2024-11-06] MEDS: PRAMIPEXOLE DI-HCL 0.25 MG TABLET GT SCH (18:03)
[2024-11-06] MEDS: LACOSAMIDE ORAL SOLN 50 MG/5 ML UDC GT SCH (18:03)
[2024-11-06] MEDS: ENOXAPARIN SODIUM 40 MG/0.4 ML DISP.SYRIN SQ SCH (18:03)
[2024-11-06] MEDS: POLYVINYL ALCOHOL 15 ML BOTTLE EACHEYE SCH (18:03)
[2024-11-06] MEDS: GEMFIBROZIL 600 MG TABLET GT SCH (18:03)
[2024-11-06] MEDS: SODIUM CHLORIDE 1000 MG TABLET GT SCH (18:03)
[2024-11-06] MEDS: CARBIDOPA/LEVODOPA 25/100 MG 1 UDTAB GT SCH (18:03)
[2024-11-06] MEDS: CLOTRIMAZOLE 1% 15 GM TUBE TP SCH (18:03)
[2024-11-06] MEDS: ASPIRIN 81 MG TAB.CHEW GT SCH (18:17)
[2024-11-06] MEDS: JEVITY 1.2 CAL 1,000 ML BOTTLE GT PRN (18:38)
[2024-11-06] MEDS: ZOSYN IVPB 3.375 G in IV D5W 50ml IV SCH (19:12)
[2024-11-06 20:00] VITALS: BP 125/69; TEMP 97.7; O2SAT 96
[2024-11-06] MEDS: VANCOMYCIN 1 GM in IV D5W 250ml IV SCH (20:38)
[2024-11-06] MEDS: LEVETIRACETAM SOL (5 ML) 100 MG/ML UDC GT SCH (20:41)
[2024-11-06] MEDS: DOCUSATE SODIUM 100 MG CAPSULE PO SCH (21:18)
[2024-11-07 06:56] LABS: PLATELET COUNT (AUTO) 181 K/uL (150-450); RED BLOOD CELL COUNT(AUTO) 3.03 MIL/uL (4.5-6.0); RED CELL DISTRIBUTION WIDTH 13.4 % (11.5-15.0); WHITE BLOOD COUNT (AUTO) 5.2 K/uL (4.3-11.0)
[2024-11-07 07:14] LABS: CALCIUM, SERUM 7.9 mg/dL (8.5-10.1); CREATININE 0.6 mg/dL (0.6-1.3); PHOSPHORUS 3.1 mg/dL (2.5-4.9); SODIUM SERUM 139.0 mmol/L (136-145); UREA NITROGEN, BLOOD 14.0 mg/dL (7-18)
[2024-11-07 08:00] VITALS: BP 132/74; TEMP 98.9; O2SAT 99
[2024-11-07] MEDS: PANTOPRAZOLE 40 MG TABLET.DR PO SCH (08:25)
[2024-11-07] MEDS: PROSOURCE / PROSTAT (PYXIS) 30 ML UDC GT SCH (09:26)
[2024-11-07] MEDS: PHENYTOIN SUSP UDC 100 MG/4 ML UDC GT SCH (09:40)
[2024-11-07] MEDS: FERROUS SULFATE UDC 300 MG/5 ML UDC GT SCH (09:41)
[2024-11-07] MEDS: MULTIVITAMINS,THERAGRAN 1 UDTAB TABLET GT SCH (09:41)
[2024-11-07] MEDS: HYDROXYCHLOROQUINE 200 MG TABLET GT SCH (09:42)
[2024-11-07] MEDS: FLUDROCORTISONE 0.1 MG TABLET GT SCH (09:42)
[2024-11-07] MEDS: ZINC OXIDE 56.7 GM TUBE TP SCH (09:44)
[2024-11-07] MEDS: VITAMINS A AND D 56.7 GM TUBE TP SCH (09:48)
[2024-11-07 16:00] VITALS: BP 117/73; TEMP 98.7; O2SAT 99
[2024-11-07] MEDS: VANCOMYCIN 1 GM in IV D5W 250ml IV SCH (16:06)
[2024-11-07 20:00] VITALS: BP 117/63; TEMP 98.1; O2SAT 99
[2024-11-08 04:32] LABS: PLATELET COUNT (AUTO) 167 K/uL (150-450); RED BLOOD CELL COUNT(AUTO) 3.10 MIL/uL (4.5-6.0); RED CELL DISTRIBUTION WIDTH 13.5 % (11.5-15.0); WHITE BLOOD COUNT (AUTO) 4.1 K/uL (4.3-11.0)
[2024-11-08 04:43] LABS: CALCIUM, SERUM 7.9 mg/dL (8.5-10.1); CREATININE 0.6 mg/dL (0.6-1.3); PHOSPHORUS 3.4 mg/dL (2.5-4.9); SODIUM SERUM 136.0 mmol/L (136-145); UREA NITROGEN, BLOOD 18.0 mg/dL (7-18)
[2024-11-08 04:46] LABS: ASPARTATE AMINOTRANSFERASE 78.0 U/L (15-37); TOTAL PROTEIN, SERUM 7.2 g/dL (6.4-8.2)
[2024-11-08 08:00] VITALS: BP 144/72; TEMP 99; O2SAT 92
[2024-11-08 16:00] VITALS: BP 131/80; TEMP 99.3; O2SAT 94
[2024-11-08] MEDS: VANCOMYCIN 750 MG in IV D5W 250 ML IV SCH (16:25)
[2024-11-08 20:00] VITALS: BP 127/75; TEMP 97.9; O2SAT 100
[2024-11-09] MEDS: LEVOTHYROXINE SODIUM 75 MCG TABLET PO SCH (07:30)
[2024-11-09 07:31] LABS: PLATELET COUNT (AUTO) 157 K/uL (150-450); RED BLOOD CELL COUNT(AUTO) 3.19 MIL/uL (4.5-6.0); RED CELL DISTRIBUTION WIDTH 13.4 % (11.5-15.0); WHITE BLOOD COUNT (AUTO) 4.1 K/uL (4.3-11.0)
[2024-11-09 07:42] LABS: CALCIUM, SERUM 8.1 mg/dL (8.5-10.1); CREATININE 0.6 mg/dL (0.6-1.3); PHOSPHORUS 3.4 mg/dL (2.5-4.9); SODIUM SERUM 134.0 mmol/L (136-145); UREA NITROGEN, BLOOD 14.0 mg/dL (7-18)
[2024-11-09 08:00] VITALS: BP 134/78; TEMP 99.1; O2SAT 100
[2024-11-09 16:00] VITALS: BP 100/78; TEMP 99.1; O2SAT 94
[2024-11-09 20:48] VITALS: BP 115/87; TEMP 99.3; O2SAT 98
[2024-11-09] MEDS: ACETAMINOPHEN 325 MG TABLET PO PRN (21:04)
[2024-11-10 06:00] LABS: PLATELET COUNT (AUTO) 151 K/uL (150-450); RED BLOOD CELL COUNT(AUTO) 3.00 MIL/uL (4.5-6.0); RED CELL DISTRIBUTION WIDTH 13.5 % (11.5-15.0); WHITE BLOOD COUNT (AUTO) 3.9 K/uL (4.3-11.0)
[2024-11-10 06:08] LABS: CALCIUM, SERUM 7.9 mg/dL (8.5-10.1); CREATININE 0.7 mg/dL (0.6-1.3); SODIUM SERUM 137.0 mmol/L (136-145); UREA NITROGEN, BLOOD 13.0 mg/dL (7-18)
[2024-11-10 07:00] VITALS: BP 113/61; TEMP 98.8; O2SAT 99
[2024-11-10 16:00] VITALS: BP 111/68; TEMP 98.8; O2SAT 99
[2024-11-10 20:00] VITALS: BP 97/52; TEMP 98.4; O2SAT 99
[2024-11-11 07:39] LABS: PLATELET COUNT (AUTO) 169 K/uL (150-450); RED BLOOD CELL COUNT(AUTO) 3.05 MIL/uL (4.5-6.0); RED CELL DISTRIBUTION WIDTH 13.3 % (11.5-15.0); WHITE BLOOD COUNT (AUTO) 4.1 K/uL (4.3-11.0)
[2024-11-11 07:42] LABS: CALCIUM, SERUM 8.2 mg/dL (8.5-10.1); CREATININE 0.6 mg/dL (0.6-1.3); SODIUM SERUM 139.0 mmol/L (136-145); UREA NITROGEN, BLOOD 14.0 mg/dL (7-18)
[2024-11-11 08:00] VITALS: BP 111/65; TEMP 98.5; O2SAT 98
[2024-11-11] MEDS ORDERED: LEVO500T90 PO (08:40)
== END 2024-11-11 15:10 | DRG 592 ==
LOC: ER 12:05 → MED 15:57
PROVIDERS: ADMIT Student in an Organized Health Care Education/Training Program; ATTEND Internal Medicine
DX: L89.893 Pressure ulcer of other site, stage 3 (principal); G93.41 Metabolic encephalopathy; N39.0 Urinary tract infection, site not specified; D68.59 Other primary thrombophilia; G82.20 Paraplegia, unspecified; J96.10 Chronic respiratory failure, unspecified whether with hypoxia or hypercapnia; E44.0 Moderate protein-calorie malnutrition; F02.83 Dementia in other diseases classified elsewhere, unspecified severity, with mood disturbance; F02.84 Dementia in other diseases classified elsewhere, unspecified severity, with anxiety; E86.0 Dehydration; G40.909 Epilepsy, unspecified, not intractable, without status epilepticus; Z93.1 Gastrostomy status; D64.9 Anemia, unspecified; K21.9 Gastro-esophageal reflux disease without esophagitis; R13.10 Dysphagia, unspecified; Z98.2 Presence of cerebrospinal fluid drainage device; I10 Essential (primary) hypertension; G20.A1 Parkinson's disease without dyskinesia, without mention of fluctuations; E78.5 Hyperlipidemia, unspecified; R74.01 Elevation of levels of liver transaminase levels; Z93.0 Tracheostomy status; F20.9 Schizophrenia, unspecified; M24.551 Contracture, right hip; N31.9 Neuromuscular dysfunction of bladder, unspecified; F31.9 Bipolar disorder, unspecified; Z74.01 Bed confinement status; Z68.25 Body mass index [BMI] 25.0-25.9, adult
CPT/HCPCS: 36415; 71045-TC; 80048-TC; 80076-TC; 80202-TC; 81001; 83605-TC; 83735-TC; 84100-TC; 84439-TC; 84443-TC; 85025-TC; 85730-TC; 87040-TC; 87081-TC; 87086-TC; 87186-TC; 97110-TC; A4223; A6253; G0378; J1650; J1953; J2543; J3373; J3374; J7030; J7040; J7050; J7060